=== PATIENT | male | born 1985 | race Caucasian/White ===

== ENCOUNTER 2021-12-06 11:40 | Outpatient (REF) | payer OTHER, SELFPAY ==
[2021-12-06 12:25] LABS: MANUAL DIFF FLAG NO
[2021-12-06 12:31] LABS: Basophils Absolute Auto 0.1 X10*3/uL (0.0-0.2); Basophils Percent Auto 0.7 % (0-2); Eosinophils Absolute Auto 0.3 X10*3/uL (0.0-0.4); Eosinophils Percent Auto 1.9 % (0-4); Hematocrit 33.9 % (42.0-52.0); Hemoglobin 11.5 g/dl (14.0-18.0); Imm Gran Abs Auto 0.09 X10*3/uL (0.00-0.03); Imm Gran Pct Auto 0.7 % (0.0-0.4); Lymphocytes Absolute Auto 1.5 X10*3/uL (1.2-4.9); Lymphocytes Percent Auto 11.9 % (20-40); Mean Corpuscular HGB Conc 33.9 g/dl (31.0-36.0); Mean Corpuscular Hemoglobin 35.7 pg (27.0-33.0); Mean Corpuscular Volume 105.3 fL (80.0-98.0); Mean Platelet Volume 8.5 fL (9.4-12.4); Monocytes Absolute Auto 1.4 X10*3/uL (0.1-1.2); Monocytes Percent Auto 10.8 % (2-11); Neutrophils Absolute Auto 9.6 x10*3/uL (2.0-8.3); Platelet Count 194 X10*3/uL (160-400); Red Blood Count 3.22 X10*6/uL (4.60-5.80); Red Cell Distribution Width 13.3 % (11.0-16.0); White Blood Count 12.9 X10*3/uL (4.8-10.8)
[2021-12-06 13:20] LABS: Alanine Aminotransferase 51 U/L (0-40); Albumin Level 2.7 g/dL (3.5-5.0); Alkaline Phosphatase 138 U/L (39-117); Anion Gap 10 (12-20); Aspartate Amino Transferase 90 U/L (5-37); Blood Urea Nitrogen 7 mg/dL (9-16); Calcium 8.8 mg/dL (8.4-10.2); Carbon Dioxide 28 mmol/L (22-29); Chloride 96 mmol/L (96-108); Estimated Glomerular Filt Rate > 60; Glucose Random 79 mg/dL (60-115); Potassium 4.1 mmol/L (3.3-5.1); Sodium 130 mmol/L (135-145)
== END 2021-12-06 11:41 | disposition home or self-care (01) ==
LOC: HO.10HDL 11:40
PROVIDERS: Visit Provider Internal Medicine
DX: E87.1 Hypo-osmolality and hyponatremia (principal); K70.10 Alcoholic hepatitis without ascites
CPT/HCPCS: 36415; 80053; 85025

== ENCOUNTER 2022-11-15 09:26 | Outpatient (REF) | payer OTHER, SELFPAY ==
[2022-11-15 10:50] LABS: MANUAL DIFF FLAG NO
[2022-11-15 10:58] LABS: Basophils Absolute Auto 0.1 X10*3/uL (0.0-0.2); Basophils Percent Auto 0.7 % (0-2); Eosinophils Absolute Auto 0.2 X10*3/uL (0.0-0.4); Eosinophils Percent Auto 2.2 % (0-4); Hematocrit 36.5 % (42.0-52.0); Hemoglobin 12.6 g/dl (14.0-18.0); Imm Gran Abs Auto 0.03 X10*3/uL (0.00-0.03); Imm Gran Pct Auto 0.4 % (0.0-0.4); Lymphocytes Absolute Auto 1.5 X10*3/uL (1.2-4.9); Lymphocytes Percent Auto 21.7 % (20-40); Mean Corpuscular HGB Conc 34.5 g/dl (31.0-36.0); Mean Corpuscular Hemoglobin 34.5 pg (27.0-33.0); Mean Platelet Volume 9.3 fL (9.4-12.4); Monocytes Absolute Auto 0.9 X10*3/uL (0.1-1.2); Monocytes Percent Auto 12.9 % (2-11); Neutrophils Absolute Auto 4.3 x10*3/uL (2.0-8.3); Neutrophils Percent Auto 62.1 % (45-73); Platelet Count 124 X10*3/uL (160-400); Red Blood Count 3.65 X10*6/uL (4.60-5.80); Red Cell Distribution Width 14.6 % (11.0-16.0)
[2022-11-15 11:07] LABS: INTERNATIONAL NORM RATIO 1.3 (0.9-1.1); Prothrombin Time 14.7 SEC (10.0-13.1)
[2022-11-15 11:41] LABS: Alanine Aminotransferase 54 U/L (0-40); Albumin Level 3.6 g/dL (3.5-5.0); Alkaline Phosphatase 138 U/L (39-117); Anion Gap 11 (12-20); Aspartate Amino Transferase 73 U/L (5-37); Bilirubin Total 3.7 mg/dL (0.0-1.0); Blood Urea Nitrogen 14 mg/dL (9-16); C Reactive Protein 0.55 mg/dL (< or = 0.50); Calcium 8.9 mg/dL (8.4-10.2); Carbon Dioxide 27 mmol/L (22-29); Chloride 100 mmol/L (96-108); Estimated Glomerular Filt Rate > 60; Glucose Random 78 mg/dL (60-115); Iron 147 mcg/dL (45-160); Percent Iron Saturation 53 % (15-50); Potassium 4.1 mmol/L (3.3-5.1); Sodium 134 mmol/L (135-145); Total Iron Binding Capacity 279 mcg/dL (228-428); Total Protein 6.8 g/dL (6.5-8.0); Unsaturated Iron Binding 132 ug/dL
[2022-11-15 12:05] LABS: Free T4 (Free Thyroxine) 0.97 ng/dL (0.71-1.85); Thyroid Stimulating Hormone 1.43 uIU/mL (0.32-4.0)
== END 2022-11-15 09:27 | disposition home or self-care (01) ==
LOC: HO.10HDL 09:26
PROVIDERS: Visit Provider Internal Medicine
DX: K74.60 Unspecified cirrhosis of liver (principal); E03.9 Hypothyroidism, unspecified; K21.9 Gastro-esophageal reflux disease without esophagitis; E55.9 Vitamin D deficiency, unspecified
CPT/HCPCS: 36415; 80053; 82306; 83540; 84439; 84443; 85025; 85610; 86140

== ENCOUNTER 2023-02-17 13:20 | Outpatient (REF) | payer OTHER, SELFPAY ==
[2023-02-17 13:43] LABS: MANUAL DIFF FLAG NO
[2023-02-17 14:05] LABS: Basophils Percent Auto 0.6 % (0-2); Eosinophils Absolute Auto 0.1 X10*3/uL (0.0-0.4); Eosinophils Percent Auto 1.8 % (0-4); Hematocrit 36.1 % (42.0-52.0); Hemoglobin 12.1 g/dl (14.0-18.0); Imm Gran Abs Auto 0.02 X10*3/uL (0.00-0.03); Imm Gran Pct Auto 0.3 % (0.0-0.4); Lymphocytes Absolute Auto 1.6 X10*3/uL (1.2-4.9); Lymphocytes Percent Auto 24.3 % (20-40); Mean Corpuscular HGB Conc 33.5 g/dl (31.0-36.0); Mean Corpuscular Hemoglobin 33.1 pg (27.0-33.0); Mean Corpuscular Volume 98.6 fL (80.0-98.0); Mean Platelet Volume 8.8 fL (9.4-12.4); Monocytes Absolute Auto 0.8 X10*3/uL (0.1-1.2); Monocytes Percent Auto 12.3 % (2-11); Neutrophils Absolute Auto 4.1 x10*3/uL (2.0-8.3); Neutrophils Percent Auto 60.7 % (45-73); Platelet Count 107 X10*3/uL (160-400); Red Blood Count 3.66 X10*6/uL (4.60-5.80); Red Cell Distribution Width 14.9 % (11.0-16.0); White Blood Count 6.8 X10*3/uL (4.8-10.8)
[2023-02-17 15:01] LABS: Alanine Aminotransferase 45 U/L (0-40); Albumin Level 3.3 g/dL (3.5-5.0); Alkaline Phosphatase 170 U/L (39-117); Anion Gap 12 (12-20); Aspartate Amino Transferase 66 U/L (5-37); Bilirubin Total 2.9 mg/dL (0.0-1.0); Blood Urea Nitrogen 8 mg/dL (9-16); Carbon Dioxide 25 mmol/L (22-29); Chloride 105 mmol/L (96-108); Estimated Glomerular Filt Rate > 60; Glucose Random 57 mg/dL (60-115); Potassium 3.9 mmol/L (3.3-5.1); Sodium 138 mmol/L (135-145); Total Protein 6.3 g/dL (6.5-8.0)
[2023-02-17 15:02] LABS: Thyroid Stimulating Hormone 1.04 uIU/mL (0.32-4.0)
== END 2023-02-17 13:21 | disposition home or self-care (01) ==
LOC: HO.LAB 13:20
PROVIDERS: PCP Internal Medicine; Visit Provider Internal Medicine
DX: D64.9 Anemia, unspecified (principal); R79.89 Other specified abnormal findings of blood chemistry; R94.6 Abnormal results of thyroid function studies
CPT/HCPCS: 36415; 80053; 84443; 85025

== ENCOUNTER 2023-12-18 10:59 | Outpatient (REF) | payer OTHER, SELFPAY ==
[2023-12-18 13:16] LABS: MANUAL DIFF FLAG NO
[2023-12-18 13:21] LABS: Basophils Percent Auto 0.7 % (0-2); Eosinophils Absolute Auto 0.1 X10*3/uL (0.0-0.4); Eosinophils Percent Auto 2.2 % (0-4); Hematocrit 40.6 % (42.0-52.0); Hemoglobin 14.5 g/dl (14.0-18.0); Imm Gran Abs Auto 0.01 X10*3/uL (0.00-0.03); Imm Gran Pct Auto 0.2 % (0.0-0.4); Lymphocytes Absolute Auto 1.8 X10*3/uL (1.2-4.9); Lymphocytes Percent Auto 30.7 % (20-40); Mean Corpuscular HGB Conc 35.7 g/dl (31.0-36.0); Mean Corpuscular Hemoglobin 32.7 pg (27.0-33.0); Mean Corpuscular Volume 91.4 fL (80.0-98.0); Mean Platelet Volume 9.7 fL (9.4-12.4); Monocytes Absolute Auto 0.7 X10*3/uL (0.1-1.2); Neutrophils Absolute Auto 3.3 x10*3/uL (2.0-8.3); Neutrophils Percent Auto 55.2 % (45-73); Platelet Count 116 X10*3/uL (160-400); Red Blood Count 4.44 X10*6/uL (4.60-5.80); Red Cell Distribution Width 15.2 % (11.0-16.0); White Blood Count 5.9 X10*3/uL (4.8-10.8)
[2023-12-18 13:33] LABS: Alanine Aminotransferase 33 U/L (0-40); Albumin Level 3.7 g/dL (3.5-5.0); Alkaline Phosphatase 137 U/L (39-117); Anion Gap 8 (12-20); Aspartate Amino Transferase 50 U/L (5-37); Bilirubin Total 1.9 mg/dL (0.0-1.0); Blood Urea Nitrogen 6 mg/dL (9-16); Calcium 9.1 mg/dL (8.4-10.2); Carbon Dioxide 29 mmol/L (22-29); Chloride 106 mmol/L (96-108); Estimated Glomerular Filt Rate > 60; Glucose Random 63 mg/dL (60-115); Potassium 3.9 mmol/L (3.3-5.1); Sodium 139 mmol/L (135-145); Total Protein 7.1 g/dL (6.5-8.0)
== END 2023-12-18 11:00 | disposition home or self-care (01) ==
LOC: HO.10HDL 10:59
PROVIDERS: Visit Provider Internal Medicine
DX: Z01.812 Encounter for preprocedural laboratory examination (principal)
CPT/HCPCS: 36415; 80053; 85025

== ENCOUNTER 2024-03-21 10:38 | Outpatient (REF) | payer OTHER, SELFPAY ==
[2024-03-21 10:49] LABS: MANUAL DIFF FLAG NO
[2024-03-21 11:47] LABS: Basophils Absolute Auto 0.1 X10*3/uL (0.0-0.2); Basophils Percent Auto 0.9 % (0-2); Eosinophils Absolute Auto 0.1 X10*3/uL (0.0-0.4); Eosinophils Percent Auto 1.9 % (0-4); Hematocrit 41.4 % (42.0-52.0); Hemoglobin 14.7 g/dl (14.0-18.0); Imm Gran Abs Auto 0.01 X10*3/uL (0.00-0.03); Imm Gran Pct Auto 0.2 % (0.0-0.4); Lymphocytes Absolute Auto 1.4 X10*3/uL (1.2-4.9); Lymphocytes Percent Auto 25.3 % (20-40); Mean Corpuscular HGB Conc 35.5 g/dl (31.0-36.0); Mean Corpuscular Hemoglobin 32.7 pg (27.0-33.0); Mean Platelet Volume 9.3 fL (9.4-12.4); Monocytes Absolute Auto 0.6 X10*3/uL (0.1-1.2); Monocytes Percent Auto 9.6 % (2-11); Neutrophils Absolute Auto 3.5 x10*3/uL (2.0-8.3); Neutrophils Percent Auto 62.1 % (45-73); Platelet Count 123 X10*3/uL (160-400); Red Cell Distribution Width 15.3 % (11.0-16.0); White Blood Count 5.7 X10*3/uL (4.8-10.8)
[2024-03-21 12:25] LABS: Alanine Aminotransferase 39 U/L (0-40); Alkaline Phosphatase 118 U/L (39-117); Anion Gap 12 (12-20); Aspartate Amino Transferase 47 U/L (5-37); Blood Urea Nitrogen 8 mg/dL (9-16); Calcium 9.2 mg/dL (8.4-10.2); Carbon Dioxide 24 mmol/L (22-29); Chloride 105 mmol/L (96-108); Estimated Glomerular Filt Rate > 60; Glucose Random 78 mg/dL (60-115); Potassium 3.7 mmol/L (3.3-5.1); Sodium 137 mmol/L (135-145); Total Protein 7.1 g/dL (6.5-8.0)
[2024-03-21 12:42] LABS: Free T4 (Free Thyroxine) 1.03 ng/dL (0.71-1.85)
== END 2024-03-21 10:39 | disposition home or self-care (01) ==
LOC: HO.LAB 10:38
PROVIDERS: PCP Internal Medicine; Visit Provider Internal Medicine
DX: D64.9 Anemia, unspecified (principal); R94.6 Abnormal results of thyroid function studies
CPT/HCPCS: 36415; 80053; 84439; 84443; 85025

== ENCOUNTER 2024-05-15 14:53 | Outpatient (REF) | payer OTHER, SELFPAY ==
[2024-05-15 15:09] LABS: MANUAL DIFF FLAG NO
[2024-05-15 15:23] LABS: Imm Gran Abs Auto 0.01 X10*3/uL (0.00-0.03); Imm Gran Pct Auto 0.2 % (0.0-0.4); PLT CLUMP 1; Red Cell Distribution Width 15.5 % (11.0-16.0); SCAN SMEAR FLAG 1
[2024-05-15 15:25] LABS: Basophils Percent Auto 0.2 % (0-2); Eosinophils Absolute Auto 0.1 X10*3/uL (0.0-0.4); Hematocrit 41.9 % (42.0-52.0); Hemoglobin 14.9 g/dl (14.0-18.0); Lymphocytes Absolute Auto 1.6 X10*3/uL (1.2-4.9); Lymphocytes Percent Auto 31.5 % (20-40); Mean Corpuscular HGB Conc 35.6 g/dl (31.0-36.0); Mean Corpuscular Volume 92.9 fL (80.0-98.0); Mean Platelet Volume 9.8 fL (9.4-12.4); Monocytes Absolute Auto 0.4 X10*3/uL (0.1-1.2); Monocytes Percent Auto 8.7 % (2-11); Neutrophils Absolute Auto 2.8 x10*3/uL (2.0-8.3); Neutrophils Percent Auto 57.4 % (45-73); Red Blood Count 4.51 X10*6/uL (4.60-5.80)
[2024-05-15 15:28] LABS: INTERNATIONAL NORM RATIO 1.1 (0.9-1.1); Prothrombin Time 13.8 SEC (11.1-13.3)
[2024-05-15 15:31] LABS: Partial Thromboplastin Time 41.7 SEC (26.0-36.8)
[2024-05-15 15:32] LABS: Platelet Count 91 X10*3/uL (160-400)
[2024-05-15 15:45] LABS: Alanine Aminotransferase 56 U/L (0-40); Alkaline Phosphatase 123 U/L (39-117); Anion Gap 11 (12-20); Aspartate Amino Transferase 63 U/L (5-37); Bilirubin Total 2.3 mg/dL (0.0-1.0); Blood Urea Nitrogen 8 mg/dL (9-16); Calcium 9.6 mg/dL (8.4-10.2); Carbon Dioxide 28 mmol/L (22-29); Chloride 106 mmol/L (96-108); Estimated Glomerular Filt Rate > 60; Glucose Random 75 mg/dL (60-115); Potassium 3.9 mmol/L (3.3-5.1); Sodium 141 mmol/L (135-145); Total Protein 7.3 g/dL (6.5-8.0)
== END 2024-05-15 14:54 | disposition home or self-care (01) ==
LOC: HO.LAB 14:53
PROVIDERS: PCP Internal Medicine; Visit Provider Internal Medicine
DX: Z01.818 Encounter for other preprocedural examination (principal); R79.89 Other specified abnormal findings of blood chemistry
CPT/HCPCS: 36415; 80053; 85025; 85610; 85730

== ENCOUNTER 2024-07-30 10:24 | Outpatient (AMB) | payer OTHER, SELFPAY ==
--- NOTE | 2024-07-30 10:27 | MHC.OFFVIS ---
Vital Signs 07/30/24 10:37 Height 5 ft 11 in Weight 172 lb BMI 24.0 BP 138/73 Blood Pressure Location Rt brachial Position Sitting Pulse 74 Intake Visit Reasons: umbilical hernia Intake Note: Patient referred by pcp Dr. Baxter for umbilical hernia. Present for yrs. Noticed after liver failure 3yrs ago. Patient c/o: pain above umbilicus after coughing, bending. 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 It is increasing in size, becoming more symptomatic. He would Like to have repaired. He is otherwise tolerating a diet. He is having regular bowel habits. 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 Chart was reviewed and patient evaluated. 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 He has been sober for 3+ years. He is being followed by gastroenterology in [place], [place]. ([facility] ,Dr. Mcduffie) He states that he has had other surgical procedures with the last several months including colonoscopy with polypectomy, and he is scheduled for a dental procedure as well. [facility] Medical History (Updated 07/30/24 @ 10:35 by RADHA Longo) Vocal cord polyp Liver cirrhosis Surgical History (Updated 07/30/24 @ 10:44 by Daniel Mccracken MD) History of ankle surgery Social History (Updated 07/30/24 @ 10:35 by RADHA Longo) Alcohol intake: former Patient Tobacco Use Status: Former Tobacco user Physical Exam Vital Signs: Last Vital Signs Pulse 74 07/30/24 10:37 BP 138/73 07/30/24 10:37 BMI result Body Mass Index 24.0 Const Other: Thin male in no acute distress. Dreadlocks hair Chest Other: Chest breath sounds bilaterally, HS 1 in 2 GI Other: Patient was examined both supine and standing with Valsalva. Bilateral groin exam negative. Abdomen is scaphoid, soft, benign. No umbilical hernia demonstrated. Patient has a supraumbilical reducible ventral hernia measuring approximately 3 cm in size. Patient has some overlying skin varicosities. Assessment & Plan Assessment & Plan (1) Ventral hernia: Code(s): K43.9 - Ventral hernia without obstruction or gangrene Category: Surgical Plan Risks, benefits, and alternatives of open supraumbilical ventral hernia repair with mesh were reviewed with the patient and included but not limited to bleeding, infection, recurrence, numbness, pain, scarring the patient wished to proceed. All questions answered. Arrangements were made for this. Medical clearance we will also be obtained. Patient said he is scheduled for baseline labs for an upcoming dental procedure and we will obtain those as well. Coding Level of Care Code New Pt Level 5 (48856) Diagnoses Ventral hernia K43.9
[2024-07-30 10:37] VITALS: BP 138/73; PULSE 74; BMI 24.0
== END 2024-07-30 10:39 | disposition home or self-care (01) ==
PROVIDERS: PCP Internal Medicine; Visit Provider Surgery
DX: K43.9 Ventral hernia without obstruction or gangrene (principal)
CPT/HCPCS: 99204

== ENCOUNTER → 2024-07-30 10:24 | Outpatient (BNVA) | payer OTHER, SELFPAY | PROVIDERS: PCP Internal Medicine; Visit Provider Surgery | DX: K43.9 Ventral hernia without obstruction or gangrene (principal) | CPT/HCPCS: 99202 ==

== ENCOUNTER 2025-01-08 14:59 | Outpatient (AMB) | payer OTHER, SELFPAY ==
[2025-01-08 15:11] VITALS: BP 122/80; PULSE 65; TEMP 36.6; O2SAT 98; BMI 25.5
--- NOTE | 2025-01-08 15:11 | A.OFFPC_ITS ---
Vital Signs 01/08/25 15:11 Height 5 ft 11 in Weight 183 lb BMI 25.5 BP 122/80 Blood Pressure Location Lt brachial Position Sitting Pulse 65 Pulse Source Pulse Oximeter Temp 97.9 F Temp Source Axillary Pulse Oximetry (%) 98 Oxygen Delivery Method Room Air Intake Visit Reasons: Routine Manager Scientific Required: No Accompanied by: Self / Same As Patient Allergies No Known Allergies Allergy (Verified 01/08/25 15:12) Tobacco use date assessed: 01/08/25 Dental Screening Dental Screen Date: 01/08/25 Did you have a dental visit in the last 12 months?: Yes Did you have a dental problem in the last 6 months where you did not have access to dental care?: No [facility] Medical History (Updated 01/08/25 @ 15:53 by Joseph Beckett MD) Vocal cord polyp Liver cirrhosis Surgical History History of ankle surgery Family History Mother Cancer Father No problems noted. Social History Housing: House Alcohol intake: former Patient Tobacco Use Status: Current everyday Tobacco user e-Cigarette/Vaping Use: Currently Using service: No Current occupational status: unemployed Cognitive needs: No Hearing needs: No Vision needs: Yes (rx glasses) Questionnaire PHQ-9 Over the last 2 weeks, how often have you been bothered by any of the following problems? 1. Little interest or pleasure in doing things: not at all 2. Feeling down, depressed, or hopeless: not at all 3. Trouble falling or staying asleep, or sleeping too much: not at all 4. Feeling tired or having little energy: not at all 5. Poor appetite or overeating: not at all 6. Feeling bad about yourself - or that you are a failure or have let yourself or your family down: not at all 7. Trouble concentrating on things, such as reading the newspaper or watching television: not at all 8. Moving or speaking so slowly that other people could have noticed. Or the opposite - being so fidgety or restless that you have been moving around a lot more than usual: not at all 9. Thoughts that you would be better off or of hurting yourself in some way: not at all Total score: 0 Depression Screening Interpretation: Negative Depression Screening Done: Yes Source: Developed by Drs. Brad Gomez, Brenda Stephenson, Toribio Archuleta and colleagues, with an educational betzaida from [employer]. Thrive Questionnaire Date Thrive assessed: 01/08/25 I am a: Patient Within the past 12 months, did the food you bought not last and you didn't have the money to get more?: Never true Within the past 12 months, did you worry whether your food would run out before you got money to buy more?: Never true Do you have trouble paying for medicines?: No Do you have trouble getting transportation to medical appointments?: No Do you have trouble paying your heating and electricity bill?: No Do you have trouble taking care of your child, family member or friend?: No Do you have trouble with day-to-day activities such as bathing, preparing meals, shopping, managing finances, etc.?: No Are you currently unemployed and looking for a job?: No Are you interested in more education?: No Currently or been in a relationship where the following occur: No concerns reported THRIVE Score: 0 AUDIT C Alcohol Use Questionnaire (AUDIT-C) 1. How often do you have a drink containing alcohol?: Never 2. How many drinks containing alcohol do you have on a typical day when you are drinking?: 1 or 2 Total Score: 0 FREEDOM-7 AMB Questionnaire FREEDOM-7 Date FREEDOM - 7 assessed: 01/08/25 Feeling nervous, anxious, or on edge: 0 = Not at all Not being able to stop or control worryin = Not at all Worrying too much about different things: 0 = Not at all Trouble relaxin = Not at all Becoming easily annoyed or irritable: 0 = Not at all Feeling afraid as if something awful might happen: 0 = Not at all Source: Developed by Drs. Brad Gomez, Brenda Stephenson, Toribio Archuleta and colleagues, with an educational betzaida from [employer]. Physical exam (Primary Care) Tobacco/Smoking Status: Tobacco use Status Tobacco use date assessed 01/08/25 01/08/25 15:13 Patient Tobacco Use Status Former Tobacco user 01/08/25 15:13 e-Cigarette/Vaping Use Never Used 01/08/25 15:13 PHQ-9: PHQ-9 Score PHQ-9: Total score 0 01/08/25 15:13 Depression Screening Interpretation: Negative Thrive Assessment: Date of Thrive Assessment Date Thrive assessed 01/08/25 01/08/25 15:13 Currently or been in a relationship where the following occur: No concerns reported Coding Level of Care Code New Pt Level 4 (86788) Complex EM visit Add On G2211 Diagnoses Ventral hernia K43.9 Liver cirrhosis K74.60 Assessment & Plan Assessment & Plan (1) Ventral hernia: Code(s): K43.9 - Ventral hernia without obstruction or gangrene Category: Surgical Plan: Surgical appt requested. (2) Liver cirrhosis: Code(s): K74.60 - Unspecified cirrhosis of liver Category: Medical Plan: Condition is stable. BW has been ordered Plan History of Present Illness The patient is a 39-year-old male presenting with a request for referral for hernia surgery. 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 The hernia is located in the abdominal area, noted to be right above by the patient. These restrictions have kept him from working since the onset of complications from his liver disease, which was first symptomatic in October 2020. The patient's liver disease, cirrhosis, was initially presented with jaundice and bloating and is suspected to be alcohol-related, though not confirmed. The patient had been evaluated for a liver transplant but currently no longer requires one and is not on the liver transplant list. His proactive management includes preparations to ensure rapid re-listing if needed. He recently underwe nt oral surgery to address severe dental issues. Social History - Employment: Formerly employed as a chef kitchen manager; unable to work due to physical limitations from a hernia. - Substance Use: Smokes two to three cigarettes per day, uses marijuana, no alcohol consumption currently. - Mental Health: Actively engaged in therapy. - Interests: Political discussions and self-care. Review of Systems - Gastrointestinal System: Reports presence of an abdominal hernia. - Psychosocial: Denies current alcohol use; Reports marijuana use. - General: Reports past liver cirrhosis. Physical Exam General: Cooperative and healthy appearing Nutritional Appearance: Well nourished Orientation/consciousness: Patient oriented x3 Limitations: No limitations Head: Normal to inspection General: Appearance normal, both eyes and all related structures Neck: Normal visual inspection Chest: Normal palpation of entire chest wall Respiratory: Smokes two or three cigarettes a day ormal respiratory effort Neurology: Patient oriented x3 Abd: No organomegaly. Ventral hernia, reducible Results Plan - Refer to surgery for evaluation of hernia. - Complete blood work to assess liver function. - Monitor liver status and maintain readiness for potential liver disease management. - Schedule follow-up appointment in six months. Patient was informed and verbally consented to the use of an ambient scribe for clinic note documentation during this visit. 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 We agreed on conducting blood work to monitor his liver function, which plays a critical role in his overall health management. The patient was informed about maintaining his current lifestyle changes, particularly abstaining from alcohol to manage cirrhosis. We outlined a six- month plan to reassess his liver status and follow up appropriately. I provided a supportive environment for his questions and concerns about future health stabilization strategies and encouraged his engagement in therapy and political interests as beneficial for his mental health. Patient Instructions - Attend referral appointment for hernia surgery evaluation. - Complete all blood work as ordered. - Continue to abstain from alcohol. - See a doctor if health changes or concerns arise. - Return for follow-up appointment in six months.
== END 2025-01-08 15:55 | disposition home or self-care (01) ==
LOC: HO.HMCHD 14:59
PROVIDERS: PCP Internal Medicine; Visit Provider Internal Medicine
DX: K43.9 Ventral hernia without obstruction or gangrene (principal); K74.60 Unspecified cirrhosis of liver

== ENCOUNTER → 2025-01-08 14:59 | Outpatient (BNVA) | payer OTHER, SELFPAY | PROVIDERS: PCP Internal Medicine; Visit Provider Internal Medicine | DX: K43.9 Ventral hernia without obstruction or gangrene (principal); K74.60 Unspecified cirrhosis of liver | CPT/HCPCS: 99202 ==

== ENCOUNTER 2025-01-13 10:50 | Outpatient (REF) | payer OTHER, SELFPAY ==
[2025-01-13 11:26] LABS: Hematocrit 39.2 % (42.0-52.0); Hemoglobin 13.1 g/dl (14.0-18.0); Mean Corpuscular HGB Conc 33.4 g/dl (31.0-36.0); Mean Corpuscular Hemoglobin 29.2 pg (27.0-33.0); Mean Corpuscular Volume 87.3 fL (80.0-98.0); Mean Platelet Volume 10.1 fL (9.4-12.4); Red Blood Count 4.49 X10*6/uL (4.60-5.80); Red Cell Distribution Width 17.6 % (11.0-16.0)
[2025-01-13 11:32] LABS: Platelet Count 86 X10*3/uL (160-400)
[2025-01-13 12:13] LABS: Alanine Aminotransferase 47 U/L (0-40); Albumin Level 3.8 g/dL (3.5-5.0); Alkaline Phosphatase 111 U/L (39-117); Anion Gap 11 (12-20); Aspartate Amino Transferase 55 U/L (5-37); Bilirubin Direct 0.5 mg/dL (0.0-0.5); Bilirubin Total 1.5 mg/dL (0.0-1.0); Blood Urea Nitrogen 9 mg/dL (9-16); Calcium 8.8 mg/dL (8.4-10.2); Carbon Dioxide 26 mmol/L (22-29); Chloride 108 mmol/L (96-108); Cholesterol 159 mg/dL (<200); Estimated Glomerular Filt Rate > 60; Glucose Random 89 mg/dL (60-115); Sodium 141 mmol/L (135-145); Total Protein 6.7 g/dL (6.5-8.0); Triglycerides 72 mg/dL (<150)
[2025-01-13 12:31] LABS: Thyroid Stimulating Hormone 1.22 uIU/mL (0.32-4.0)
[2025-01-13 12:43] LABS: Appearance Urine Clear; Color Urine Dark Yellow; Glucose Urine UA Negative (Negative); Leukocyte Esterase Urine Negative (Negative); Nitrite Urine Negative (Negative); PH 7.5 (5.0-9.0); Urine Blood Negative (Negative); Urine Ketones Negative (Negative); Urine Protein Negative (Neg-Trace)
[2025-01-13 13:08] LABS: HDL Cholesterol 36 mg/dL (>40); LDL Cholesterol Calculated 109 mg/dL (<100)
== END 2025-01-13 10:51 | disposition home or self-care (01) ==
LOC: HO.LAB 10:50
PROVIDERS: PCP Internal Medicine; Visit Provider Internal Medicine
DX: K74.60 Unspecified cirrhosis of liver (principal)
CPT/HCPCS: 36415; 80048; 80061; 80076; 81003; 84443; 85027

== ENCOUNTER 2025-05-26 08:08 | Outpatient (AMB) | payer OTHER, SELFPAY ==
--- NOTE | 2025-05-26 08:14 | MHC.OFFVIS ---
Vital Signs 05/26/25 08:23 Height 5 ft 11 in Weight 198 lb BMI 27.6 BP 122/67 Blood Pressure Location Rt brachial Position Sitting Pulse 67 Intake Visit Reasons: ventral hernia Intake Note: Patient referred for evaluation and treatment of ventral hernia. Last seen by Dr. Mccracken 07-30-2024. Patient c/o: pain started on mid abdomen above umbilicus but right lower abdomen feels uncomfortable. Hx of liver failure three yrs ago. 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 He says he has noticed this reducible mass on his epigastric area for about 3 years now. 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 He wants this hernia repaired. He has a history of liver failure in 2020. He has a he was drinking heavily at that time but says he was told that there may have been other factors causing his liver failure. He says he has been sober for more than 3 years now. He denies any upper GI bleed or any signs of portal hypertension. He has bilirubin last Jan, 2025 was 1.5. He has normal AST/ALT. He admits to smoking about 2 cigarettes a day. He says he is very active feels healthy overall. [facility] Medical History (Updated 05/26/25 @ 08:49 by Hayden Avendano MD) Epigastric hernia Vocal cord polyp Liver cirrhosis Surgical History Hx of tooth extraction History of ankle surgery Family History Mother Cancer Father No problems noted. Social History Housing: House Alcohol intake: former Patient Tobacco Use Status: Current everyday Tobacco user Cigarettes Per Day: 3 e-Cigarette/Vaping Use: Currently Using service: No Current occupational status: unemployed Cognitive needs: No Hearing needs: No Vision needs: Yes (rx glasses) Review of Systems Const Denies chills and Denies fever(s) Card Denies chest pain, Denies dyspnea and Denies dyspnea on exertion Resp Denies cough, Denies dyspnea and Denies dyspnea on exertion GI Denies hematochezia and Denies change in bowel habits Denies hematuria and Denies difficulty urinating Musc Denies back pain and Denies limited range of motion Neuro Denies focal weakness and Denies convulsions Psych Denies depression and Denies mood swings Physical Exam Vital Signs: Last Vital Signs Pulse 67 05/26/25 08:23 BP 122/67 05/26/25 08:23 BMI result Body Mass Index 27.6 Const General: comfortable and no acute distress Orientation/consciousness: patient oriented x3 Neck Neck: Yes no lymphadenopathy Resp Auscultation: clear to auscultation bilaterally Cardio Rhythm: regular rhythm GI Other: Palpable epigastric hernia on Valsalva, reducible, with a fascial defect of about 2 cm Palpation (GI): Soft to palpation, nontender and no guarding Neuro General: patient oriented x3 Assessment & Plan Assessment & Plan (1) Epigastric hernia: Code(s): K43.9 - Ventral hernia without obstruction or gangrene Category: Medical Plan: He has a reducible epigastric hernia as described above. He wants to proceed with repair. I explained the technique of repair with possible mesh placement. I reviewed the risks including but not limited to bleeding, infections, injury to bowel, recurrence, postop pain, inherent risks of anesthesia as well as the benefits and alternatives. I also explained to him what to expect postoperatively. He says he understands and wants to proceed He has a history of liver failure in 2020. He says he has not had any alcohol for over 3 years. He has bilirubin is 1.5. He does not present with symptoms of portal hypertension. He is not on any transplant list. Coding Level of Care Code New Pt Level 3 (69781) Diagnoses Epigastric hernia K43.9
[2025-05-26 08:23] VITALS: BP 122/67; PULSE 67; BMI 27.6
== END 2025-05-26 08:44 | disposition home or self-care (01) ==
LOC: HO.HGS 08:09
PROVIDERS: PCP Internal Medicine; Visit Provider Surgery
DX: K43.9 Ventral hernia without obstruction or gangrene (principal)
CPT/HCPCS: 99203

== ENCOUNTER → 2025-05-26 08:08 | Outpatient (BNVA) | payer OTHER, SELFPAY | PROVIDERS: PCP Internal Medicine; Visit Provider Surgery | DX: K43.9 Ventral hernia without obstruction or gangrene (principal) | CPT/HCPCS: 99202 ==

== ENCOUNTER 2025-06-12 09:13 | Outpatient (AMB) | payer OTHER, SELFPAY ==
--- NOTE | 2025-06-12 09:37 | A.OFFPC_ITS ---
Vital Signs 06/12/25 09:39 Height 5 ft 11 in Weight 197 lb 6 oz BMI 27.5 BP 130/68 Blood Pressure Location Lt brachial Position Sitting Pulse 70 Pulse Source Pulse Oximeter Temp 96.9 F Temp Source Temporal Artery Scan Pulse Oximetry (%) 97 Oxygen Delivery Method Room Air Intake Visit Reasons: 06/30 hernia Intake Note: Patient is here for a Pre-op for Hernia scheduled with Dr Avendano ([facility] General Surgeon) on 06/30/25. Nuclear Medical Tech Required: No Major Account Representative: Not Required per policy Accompanied by: Self / Same As Patient Allergies No Known Allergies Allergy (Verified 06/12/25 09:39) Tobacco use date assessed: 06/12/25 Dental Screening Dental Screen Date: 01/08/25 [facility] Medical History (Updated 05/26/25 @ 08:49 by Hayden Avendano MD) Epigastric hernia Vocal cord polyp Liver cirrhosis Surgical History Hx of tooth extraction History of ankle surgery Family History (Updated 06/12/25 @ 09:37 by RADHA Davis) Mother Cancer Father No problems noted. Social History (Updated 06/12/25 @ 09:44 by RADHA Davis) Housing: House Alcohol intake: former Patient Tobacco Use Status: Current everyday Tobacco user Tobacco use type: Cigarette Cigarette Packs Per Day: 0.25 Cigarettes Per Day: 3 e-Cigarette/Vaping Use: Currently Using Frequency of e-Cigarette/Vaping Use: Ocassional Second Hand Smoke Exposure: Yes Substance Use Type: Marijuana Substance Use Frequency: Daily service: No Current occupational status: unemployed Cognitive needs: No Hearing needs: No Vision needs: Yes (rx glasses) Questionnaire Thrive Questionnaire Date Thrive assessed: 01/08/25 AUDIT C Alcohol Use Questionnaire (AUDIT-C) 2. How many drinks containing alcohol do you have on a typical day when you are drinking?: 1 or 2 3. How often do you have six or more drinks on one occasion?: Never Total Score: 0 FREEDOM-7 AMB Questionnaire FREEDOM-7 Date FREEDOM - 7 assessed: 01/08/25 Source: Developed by Drs. Brad Gomez, Brenda Stephenson, Torbiio Archuleta and colleagues, with an educational betzaida from [employer]. Physical exam (Primary Care) Vital Signs: Last Vital Signs Temp 96.9 F 06/12/25 09:39 Pulse 70 06/12/25 09:39 BP 130/68 06/12/25 09:39 Pulse Ox 97 06/12/25 09:39 Oxygen Delivery Method Room Air 06/12/25 09:39 BMI result Body Mass Index 27.5 Tobacco/Smoking Status: Tobacco use Status Tobacco use date assessed 06/12/25 06/12/25 09:44 Patient Tobacco Use Status Current everyday Tobacco 06/12/25 09:44 Tobacco use type Cigarette 06/12/25 09:44 e-Cigarette/Vaping Use Currently Using 06/12/25 09:44 Thrive Assessment: Date of Thrive Assessment Date Thrive assessed 01/08/25 06/12/25 09:38 Coding Level of Care Code Est Pt Level 4 (26619) Complex EM visit Add On G2211 Diagnoses Liver cirrhosis K74.60 Ventral hernia K43.9 Assessment & Plan Assessment & Plan (1) Liver cirrhosis: Code(s): K74.60 - Unspecified cirrhosis of liver Category: Medical Plan: Clinically condition appears stable. Blood work has been ordered. (2) Ventral hernia: Code(s): K43.9 - Ventral hernia without obstruction or gangrene Category: Surgical Plan: History of Present Illness - The patient is a 39-year-old male presenting with a request for preoperative clearance for hernia surgery. - He has a history of cirrhosis, diagnosed over three years ago, and has maintained sobriety since his initial hospitalization for bloating related to the condition. - He has previously undergone anesthesia for dental extraction and vocal cord polyp removal without complications. 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 Social History - Employment: Previously worked as a world renowned chef and restaurant owner, currently not working due to hernia- related discomfort. - Substance Use: History of alcohol use, sober for over three years. Review of Systems - Cardiovascular: Denies any heart issues. - Allergies: Denies any known allergies. Physical Exam General: Cooperative and healthy appearing Nutritional Appearance: Well nourished Orientation/consciousness: Patient oriented x3 Limitations: No limitations Head: Normal to inspection General: Appearance normal, both eyes and all related structures Neck: Normal visual inspection Chest: Normal palpation of entire chest wall Respiratory: Normal respiratory effort Neurology: Patient oriented x3 Results Plan - Preoperative clearance for hernia surgery involves obtaining blood work and an EKG. - The patient will visit the lab for these tests, and results will be forwarded to the surgical team. Discussion Notes I discussed with the patient the need for preoperative clearance, including blood work and an EKG, to ensure he is fit for the upcoming hernia surgery. I assured him that the results will be communicated to the surgical team, and they will contact him with further instructions. Patient Instructions - Proceed to the lab across the street for blood work and an EKG. - Await contact from the surgical team for further instructions regarding the surgery date. Orders: Orders Basic Metabolic Panel Today K74.60 - Unspecified cirrhosis of liver Complete Blood Count no Diff Today K74.60 - Unspecified cirrhosis of liver Lipid Panel Today K74.60 - Unspecified cirrhosis of liver Liver Panel Today K74.60 - Unspecified cirrhosis of liver Thyroid Stimulating Hormone Today K74.60 - Unspecified cirrhosis of liver UA and rflx microscopic Today K74.60 - Unspecified cirrhosis of liver ECG 12 lead EKG Today K43.9 - Ventral hernia without obstruction or gangrene
[2025-06-12 09:39] VITALS: BP 130/68; PULSE 70; TEMP 36.1; O2SAT 97; BMI 27.5
--- OUTSIDE RECORDS SUMMARY | 2025-06-12 10:04 | XMS_ITS | Encounter Summary ---
Author Organization [facility] Address [address] [place] [phone] Phone Care Team Providers Care Account Liaison Name Role Phone Hayden Britt MD Primary Care Provider Encounter Details Date Type Department Care Team (Latest Contact Info) Description 03/08/2022 Transcribe Orders Virtual Department [address] [place] [phone] Fabrice Mcduffie MD [address] [place] [address] [email or web address] Alcoholic cirrhosis, unspecified whether ascites present (Primary Dx) Social History Tobacco Use Types Packs/Day Years Used Date Smoking Tobacco: Every Day Cigarettes Smokeless Tobacco: Never Alcohol Use Standard Drinks/Week Comments Not Currently 0 (1 standard drink = 0.6 oz pure alcohol) quit after liver failure diagnosis and last admission Sex and Gender Information Value Date Recorded Sex Assigned at Male 11/10/2017 10:27 AM EST Legal Sex Male 9:17 PM EDT Gender Identity Male 11/10/2017 10:27 AM EST Sexual Orientation Straight 11/10/2017 10 :27 AM EST documented as of this encounter Plan of Treatment Upcoming Encounters Date Type Department Care Team (Late st Contact Info) Description 06/25/2025 8:15 AM EDT Appointment [facility] [address] [place] [address] Fabrice Mcduffie MD [address] [place] [phone] [email or web address] documented as of this encounter Results * US ABDOMEN LIMITED RIGHT UPPER QUADRANT (03/11/2022 8:56 AM EDT) Anatomical Region Laterality Modality Abdomen Ultrasound 03/11/2022 9:07 AM EDT Impressions 03/11/2022 9:15 AM EDT 1.Findings suggestive of cirrhosis, including recanalized umbilical vein. 2.Gallbladder sludge and/or granular stones without evidence of acute cholecystitis. Narrative 03/11/2022 9:15 AM EDT US ABDOMEN LIMITED RIGHT UPPER QUADRANT TECHNIQUE: US Abdominal limited right upper quadrant. COMPARISON: CT dated 10/12/2021 FINDINGS: Liver: Echogenic and coarsened echotexture and mildly nodular contour, consistent with cirrhosis. No focal lesions. Main Portal Vein: Patent. There appears to be a recanalized umbilical vein. Gallbladder: There is a small amount of layering sludge and/or granular stones. No significant gallbladder wall thickening or pericholecystic fluid Sonographic Herman's sign: negative. Biliary: Normal. No intrahepatic or extrahepatic biliary ductal dilatation. The common bile duct measures 5 mm. No hydronephrosis in the right kidney Procedure Note Loli Banks MD - 03/11/2022 US ABDOMEN LIMITED RIGHT UPPER QUADRANT TECHNIQUE: US Abdominal limited right upper quadrant. COMPARISON: CT dated 10/12/2021 FINDINGS: Liver: Echogenic and coarsened echotexture and mildly nodular contour,consistent with cirrhosis. No focal lesions. Main Portal Vein: Patent. There appears to be a recanalized umbilicalvein. Gallbladder: There is a small amount of layering sludge and/or granularstones. No significant gallbladder wall thickening or pericholecysticfluid Sonographic Herman's sign: negative. Biliary: Normal. No intrahepatic or extrahepatic biliary ductaldilatation. The common bile duct measures 5 mm. No hydronephrosis in the right kidney IMPRESSION: 1.Findings suggestive of cirrhosis, including recanalized umbilicalvein. 2.Gallbladder sludge and/or granular stones without evidence of acutecholecystitis. Fabrice Mcduffie MD IMG US ABDOMEN Final Resu lt documented in this encounter Visit Diagnoses Diagnosis Alcoholic cirrhosis, unspecified whether ascites present- Primary Alcoholic cirrhosis, unspecified whether ascites present documented in this encounter Care Teams Account Liaison Relationship Specialty Start Date End Date Hayden Britt MD [address] [place] [address] [place] [address] PCP - General Internal Medicine 11/04/21 documented as of this encounter Additional Source Comments The information contained in this document represents components of the legal health record. It is not the complete legal health record.[facility]
--- OUTSIDE RECORDS SUMMARY | 2025-06-12 10:04 | XMS_ITS | Encounter Summary ---
Author Organization [facility] Address [address] [place] [phone] Phone Care Team Providers Care Laborer Vineyard Name Role Phone Hayden Britt MD Primary Care Provider Encounter Details Date Type Department Care Team (Late st Contact Info) Description 03/15/2023 Ancillary Orders Virtual Department [address] [place] [address] Brenda Aguiar NP [address] [place] [address] Alcoholic cirrhosis of liver without ascites Social History Tobacco Use Types Packs/Day Years Used Date Smoking Tobacco: Every Day Cigarettes 0.3 20 Smokeless Tobacco: Never Alcohol Use Standard Drinks/Week Comments Not Currently 0 (1 standard drink = 0.6 oz pure alcohol) quit after liver failure diagnosis last etoh 10/12/21. Prior would drink 10-15 liquor drinks daily Education Answer Date Recorded Are you interested in more education? Not on denzel e 01/06/2023 Are you concerned about learning? Not on file 01/06/2023 No 01/06/2023 No 01/06/2023 Digital Access Answer Date Recorded No 02/04/2023 No 02/04/2023 Reliable internet access at home? Not on file 02/04/2023 Device with a working camera? Not on file Sex and Gender Information Value Date Recorded Sex Assigned at Male 11/10/2017 10:27 AM EST Legal Sex Male 9:17 PM EDT Gender Identity Male 11/10/2017 10:27 AM EST Sexual Orientation Straight 11/10/2017 10 :27 AM EST documented as of this encounter Plan of Treatment Upcoming Encounters Date Type Department Care Team (Late st Contact Info) Description 06/25/2025 8:15 AM EDT Appointment [facility], Ultrasound - [facility] [address] [place] [address] Fabrice Mcduffie MD 10 [facility] 2 [place] [address] [email or web address] documented as of this encounter Results * US ABDOMEN LIMITED RIGHT UPPER QUADRANT (03/15/2023 8:59 AM EDT) Anatomical Region Laterality Modality Abdomen Ultrasound 03/15/2023 4:24 PM EDT Impressions 03/16/2023 5:22 AM EDT Cirrhotic liver. No suspicious focal hepatic lesion. Cholelithiasis without evidence of acute cholecystitis or bile duct dilation. Narrative 03/16/2023 5:22 AM EDT US ABDOMEN LIMITED RIGHT UPPER QUADRANT TECHNIQUE: US Abdominal limited right upper quadrant. COMPARISON: MRI ABDOMEN WITH AND WITHOUT CONTRAST FINDINGS: Liver: Cirrhotic morphology/echotexture. Relative focal hypoechogenicity adjacent to the gallbladder measured by calipers on still images, corresponding to an area of focal fatty sparing seen on recent prior MRI. No new/suspicious focal lesion. Main Portal Vein: Patent with normal direction of flow. Gallbladder: Shadowing luminal gallstones/sludge. No abnormal gallbladder wall thickening. Herman's Sign: Negative. Biliary: No intrahepatic or extrahepatic biliary ductal dilatation. The common bile duct measures 4 mm. Procedure Note Jose Schroeder MD - 03/16/2023 US ABDOMEN LIMITED RIGHT UPPER QUADRANT TECHNIQUE: US Abdominal limited right upper quadrant. COMPARISON: MRI ABDOMEN WITH AND WITHOUT CONTRAST FINDINGS: Liver: Cirrhotic morphology/echotexture. Relative focal hypoechogenicityadjacent to the gallbladder measured by calipers on still images,corresponding to an area of focal fatty sparing seen on recent prior MRI.No new/suspicious focal lesion. Main Portal Vein: Patent with normal direction of flow. Gallbladder: Shadowing luminal gallstones/sludge. No abnormal gallbladderwall thickening. Herman's Sign: Negative. Biliary: No intrahepatic or extrahepatic biliary ductal dilatation. The common bile duct measures 4 mm. IMPRESSION: Cirrhotic liver. No suspicious focal hepatic lesion. Cholelithiasis without evidence of acute cholecystitis or bile ductdilation. us Brenda Aguiar CH[facility] C[facility] ASSISTANT DIRECTOR IMG US ABDOMEN Final Res ult documented in this encounter Visit Diagnoses Diagnosis Alcoholic cirrhosis of liver without ascites Alcoholic cirrhosis of liver without ascites documented in this encounter Care Teams Laborer Vineyard Relationship Specialty Start Date End Date Hayden Britt MD [address] [place] [address] [place] [address] PCP - General Internal Medicine 11/04/21 documented as of this encounter Additional Source Comments The information contained in this document represents components of the legal health record. It is not the complete legal health record.[facility]
--- OUTSIDE RECORDS SUMMARY | 2025-06-12 10:04 | XMS_ITS | Encounter Summary ---
Author Organization [facility] Address [address] [place] [phone] Phone Care Team Providers Care Early Childhood Associate Name Role Phone Hayden Britt MD Primary Care Provider Reason for Referral * MRI/CAT Scan - Closed Specialty Diagnoses / Procedures Referred By Contac t Referred To Contact Radiology Diagnoses Hepatic cirrhosis, unspecified hepatic cirrhosis type, unspecified whether ascites present Procedures CT Abdomen/Pelvis CHG CT SCAN,ABDOMENT AND PELVIS,W CONTRAST Fabrice Mcduffie MD [address] [place] [address] Phone: tel: fax: [email or web address] Referral ID Status Reason Start Date Expiration Date Visits Re quested Visits Authorized [id number] Closed 10/29/2023 04/26/2024 1 1 Encounter Details Date Type Department Care Team (Latest Contact Info) Description 10/31/2023 Transcribe Orders Virtual Department [address] [place] [address] Fabrice Mcduffie MD [address] [address] [email or web address] Hepatic cirrhosis, unspecified hepatic cirrhosis type, unspecified whether ascites present (Primary Dx) Social [...] Info) Description 06/25/2025 8:15 AM EDT Appointment [address] [address] Fabrice Mcduffie MD [address] [place] [address] [email or web address] documented as of this encounter Results * CT ABDOMEN/PELVIS WITH CONTRAST (12/11/2023 10:10 AM EDT) Anatomical Region Laterality Modality Abdomen, Pelvis Computed Tomogra phy 12/12/2023 5:58 AM EDT Impressions 12/12/2023 7:36 AM EDT Cirrhosis with portal hypertension. No definite evidence of suspicious focal liver lesion by single phase exam (not specifically optimized for HCC detection)l. Narrative 12/12/2023 7:[address] ABDOMEN/PELVIS WITH CONTRAST Referring clinician's provided indication for this examination in Epic: Outside Radiology Order; cirrhosis TECHNIQUE: Multidetector-row CT of the abdomen and pelvis was performed after administration of intravenous contrast using tailored dose modulation techniques. Images were reconstructed in the axial, coronal, and sagittal planes. COMPARISON: MRI abdomen 11/01/2022 FINDINGS: Lower Chest: Normal. No consolidation or pleural effusions. Liver: No suspicious focal liver lesion by single phase exam. Cirrhosis. Punctate benign hepatic cysts, characterizable on prior MRI. Biliary: No biliary ductal dilatation. Cholelithiasis. Spleen: Splenomegaly measuring 13.7 cm AP. Pancreas: Normal. No masses or ductal dilatation. Adrenal Glands: Normal. No nodules. Kidneys/Ureters: No solid renal mass or hydronephrosis. Bowel: No bowel obstruction or wall thickening. Peritoneum/Retroperitoneum: Normal. No masses, pneumoperitoneum, or fluid. Lymph Nodes: Normal. No lymphadenopathy. Pelvic Organs/Bladder: Normal. No mass. Vessels: No abdominal aortic aneurysm. Recanalized umbilical vein, with extensive venous collaterals along the ventral abdominal wall. Bones/Soft Tissues: No suspicious focal osseous lesion. Procedure Note Alok Bonilla MD - 12/12/2023 CT ABDOMEN/PELVIS WITH CONTRAST Referring clinician's provided indication for this examination in Epic:Outside Radiology Order; cirrhosis TECHNIQUE: Multidetector-row CT of the abdomen and pelvis was performedafter administration of intravenous contrast using tailored dosemodulation techniques. Images were reconstructed in the axial, coronal,and sagittal planes. COMPARISON: MRI abdomen 11/01/2022 FINDINGS: Lower Chest: Normal. No consolidation or pleural effusions. Liver: No suspicious focal liver lesion by single phase exam. Cirrhosis.Punctate benign hepatic cysts, characterizable on prior MRI. Biliary: No biliary ductal dilatation. Cholelithiasis. Spleen: Splenomegaly measuring 13.7 cm AP. Pancreas: Normal. No masses or ductal dilatation. Adrenal Glands: Normal. No nodules. Kidneys/Ureters: No solid renal mass or hydronephrosis. Bowel: No bowel obstruction or wall thickening. Peritoneum/Retroperitoneum: Normal. No masses, pneumoperitoneum, orfluid. Lymph Nodes: Normal. No lymphadenopathy. Pelvic Organs/Bladder: Normal. No mass. Vessels: No abdominal aortic aneurysm. Recanalized umbilical vein, withextensive venous collaterals along the ventral abdominal wall. Bones/Soft Tissues: No suspicious focal osseous lesion. IMPRESSION: Cirrhosis with portal hypertension. No definite evidence of suspiciousfocal liver lesion by single phase exam (not specifically optimized forHCC detection)l. Fabrice Mcduffie MD IMG CT ABD/PELVIS Final Re sult documented in this encounter Visit Diagnoses Diagnosis Hepatic cirrhosis, unspecified hepatic cirrhosis type, unspecified whether ascites present- Primary Hepatic cirrhosis, unspecified hepatic cirrhosis type, unspecified whether ascites present documented in this encounter Care Teams Early Childhood Associate Relationship Specialty Start Date End Date Hayden Britt MD [address] [place] [address] [place] [address] PCP - General Internal Medicine 11/04/21 documented as of this encounter Additional Source Comments The information contained in this document represents components of the legal health record. It is not the complete legal health record.[facility]
--- OUTSIDE RECORDS SUMMARY | 2025-06-12 10:04 | XMS_ITS | Encounter Summary ---
Author Organization [facility] Address [address] [place] [phone] Phone Care Team Providers Care Account Adjuster Name Role Phone Hayden Britt MD Primary Care Provider Encounter Details Date Type Department Care Team (Late st Contact Info) Description 11/26/2021 Procedure Pass [facility] [address] [place] [address] Social History Tobacco Use Types Packs/Day Years [...] Info) Description 06/25/2025 8:15 AM EDT Appointment [facility] [address] [place] [address] Fabrice Mcduffie MD [address] [place] [phone] [email or web address] documented as of this encounter Visit Diagnoses Not on filedocumented in this encounter Additional Health Concerns Infection Onset Date Last Indicated Resolved Time MRSA Comment:Import to add expiration date of 11/27/2021 per Infection Control as part of historical infection status reconciliation 06/14/2005 06/14/2005 11/28/19 1:35 AM EDT documented as of this encounter Care Teams Account Adjuster Relationship Specialty Start Date End Date Hayden Britt MD [address] [place] [address] [place] [address] PCP - General Internal Medicine 11/04/21 documented as of this encounter Additional Source Comments The information contained in this document represents components of the legal health record. It is not the complete legal health record.[facility]
--- OUTSIDE RECORDS SUMMARY | 2025-06-12 10:04 | XMS_ITS | Encounter Summary ---
Author Organization [facility] Address [address] [place] [phone] Phone Care Team Providers Care Criminal Judge Name Role Phone Hayden Britt MD Primary Care Provider Encounter Details Date Type Department Care Team (Late st Contact Info) Description 12/02/2021 Procedure Pass [facility] [address] [place] [address] Social History Tobacco Use Types Packs/Day Years [...] Info) Description 06/25/2025 8:15 AM EDT Appointment [facility] [address] [place] [address] Fabrice Mcduffie MD [address] [place] [address] [email or web address] documented as of this encounter Visit Diagnoses Not on filedocumented in this encounter Care Teams Criminal Judge Relationship Specialty Start Date End Date Hayden Britt MD [address] [place] [address] [place] [address] PCP - General Internal Medicine 11/04/21 documented as of this encounter Additional Source Comments The information contained in this document represents components of the legal health record. It is not the complete legal health record.[facility]
--- OUTSIDE RECORDS SUMMARY | 2025-06-12 10:04 | XMS_ITS | Encounter Summary ---
Author Organization [facility] Address [address] [place] [address] Phone Care Team Providers Care Medical Records Director Name Role Phone Hayden Britt MD Primary Care Provider Encounter Details Date Type Department Care Team (Latest Contact Info) Description 11/21/2023 Transcribe Orders Virtual Department 30 [place] [address] Fabrice Mcduffie MD [address] [place] [address] [email or web address] Alcoholic cirrhosis of liver without ascites (Primary Dx) Social History Tobacco Use Types [...] Info) Description 06/25/2025 8:15 AM EDT Appointment [facility], Ultrasound - [facility] [address] [place] [address] Fabrice Mcduffie MD [address] [phone] [email or web address] documented as of this encounter Results * US ABDOMEN LIMITED RIGHT UPPER QUADRANT (12/12/2023 9:34 AM EDT) Anatomical Region Laterality Modality Abdomen Ultrasound 12/12/2023 9:53 AM EDT Impressions 12/12/2023 5:01 PM EDT Diffusely coarsened echotexture and nodular contour in keeping with history of cirrhosis. No focal hepatic lesion demonstrated sonographically Narrative 12/12/2023 5:01 PM EDT US ABDOMEN LIMITED RIGHT UPPER QUADRANT Referring clinician's provided indication for this examination in [facility]: Outside Radiology Order; cirrhosis TECHNIQUE: US Abdominal limited right upper quadrant. COMPARISON: CT abdomen pelvis 12/11/2023, sonography 03/15/2023, and MRI 11/01/2022 FINDINGS: Liver: Diffusely coarsened echotexture and nodular contour in keeping with history of cirrhosis. There is a 6 mm cyst at the right hepatic lobe corresponding to findings of prior MRI. No suspicious focal hepatic lesion demonstrated sonographically Main Portal Vein: Patent with normal direction of flow. Gallbladder: Redemonstration of cholelithiasis. No gallbladder wall thickening or pericholecystic fluid Herman's Sign: Negative. Biliary: No intrahepatic or extrahepatic biliary ductal dilatation. The common bile duct measures 2 mm. Right Kidney: No stones or hydronephrosis. Procedure Note Wanda Plunkett MD - 12/12/2023 US ABDOMEN LIMITED RIGHT UPPER QUADRANT Referring clinician's provided indication for this examination in [facility]:Outside Radiology Order; cirrhosis TECHNIQUE: US Abdominal limited right upper quadrant. COMPARISON: CT abdomen pelvis 12/11/2023, sonography 03/15/2023, and MRI11/01/2022 FINDINGS: Liver: Diffusely coarsened echotexture and nodular contour in keeping withhistory of cirrhosis. There is a 6 mm cyst at the right hepatic lobecorresponding to findings of prior MRI. No suspicious focal hepatic lesiondemonstrated sonographically Main Portal Vein: Patent with normal direction of flow. Gallbladder: Redemonstration of cholelithiasis. No gallbladder wallthickening or pericholecystic fluid Herman's Sign: Negative. Biliary: No intrahepatic or extrahepatic biliary ductal dilatation. The common bile duct measures 2 mm. Right Kidney: No stones or hydronephrosis. IMPRESSION: Diffusely coarsened echotexture and nodular contour in keeping withhistory of cirrhosis. No focal hepatic lesion demonstratedsonographically Fabrice Mcduffie MD IMG US ABDOMEN Final Resu lt documented in this encounter Visit Diagnoses Diagnosis Alcoholic cirrhosis of liver without ascites- Primary Alcoholic cirrhosis of liver without ascites documented in this encounter Care Teams Medical Records Director Relationship Specialty Start Date End Date Hayden Britt MD [address] [place] [address] [place] [address] PCP - General Internal Medicine 11/04/21 documented as of this encounter Additional Source Comments The information contained in this document represents components of the legal health record. It is not the complete legal health record.[facility]
--- OUTSIDE RECORDS SUMMARY | 2025-06-12 10:04 | XMS_ITS | Encounter Summary ---
Author Organization [facility] Address [address] [place] [phone] Phone Care Team Providers Care Event Specialist Product Demonstrator Name Role Phone Hayden Britt MD Primary Care Provider Reason for Referral * MRI/CAT Scan - Closed Specialty Diagnoses / Procedures Referred By Contac t Referred To Contact Radiology Diagnoses Liver lesion Procedures MRI Abdomen CHG MRI, ABDOMEN, COMBO Fabrice Mcduffie MD Phone: tel: fax: [email or web address] Referral ID Status Reason Start Date Expiration Date Visits Re quested Visits Authorized [id number] Closed 10/12/2022 04/10/2023 1 1 Encounter Details Date Type Department Care Team (Latest Contact Info) Description 10/12/2022 Transcribe Orders Virtual Department [address] [place] [address] Fabrice Mcduffie MD [address] [address] Liver lesion (Primary Dx) Social History Tobacco Use Types Packs/Day Years Used Date Smoking Tobacco: Every Day Cigarettes 0.3 20 Smokeless Tobacco: Never Alcohol Use Standard Drinks/Week Comments Not Currently 0 (1 standard drink = 0.6 oz pure alcohol) quit after liver failure diagnosis last etoh 10/12/21. Prior would drink 10-15 liquor drinks daily Sex and Gender Information Value Date Recorded Sex Assigned at Male 11/10/2017 10:27 AM EST Legal Sex Male 9:17 PM EDT Gender Identity Male 11/10/2017 10:27 AM EST Sexual Orientation Straight 11/10/2017 10 :27 AM EST documented as of this encounter Plan of Treatment Upcoming Encounters Date Type Department Care Team (Late st Contact Info) Description 06/25/2025 8:15 AM EDT Appointment [facility] [address] [place] [address] Fabrice Mcduffie MD [address] [place] [phone] [email or web address] documented as of this encounter Results * MRI ABDOMEN WITH AND WITHOUT CONTRAST (11/01/2022 10:10 AM EST) Anatomical Region Laterality Modality Abdomen Magnetic Resonan ce 11/01/2022 5:00 PM EST Impressions 11/02/2022 5:35 AM EST Hepatic parenchymal heterogeneity, with a mildly nodular appearance, likely related to known cirrhosis and possibly resolving inflammation related to recent alcoholic hepatitis. No suspicious focal liver lesion. Sequelae of portal hypertension, including splenomegaly and esophageal varices. 10 mm pancreatic tail lesion which demonstrates similar signal to splenic parenchyma on multiple sequences, likely a benign intrapancreatic splenule, though not definitively characterized. If definitive characterization is desired, consider sulfur colloid SPECT scintigraphy. This report has been forwarded to an automated communication system which will electronically notify appropriate providers of potentially important findings. Narrative 11/02/2022 5:35 AM EST MRI ABDOMEN WITH AND WITHOUT CONTRAST TECHNIQUE: Multiplanar MR imaging of the abdomen was performed using T1, T2, fat saturated, and diffusion weighted techniques. Dynamic multiphase imaging was also performed after administration of an intravenous gadolinium contrast agent. COMPARISON: CT abdomen/pelvis 10/12/2021. FINDINGS: Lower Chest: Normal. No consolidation or pleural effusions. Liver: Hepatic parenchymal heterogeneity, with a mildly nodular appearance, likely related to known cirrhosis and possibly resolving inflammation related to recent alcoholic hepatitis. Punctate benign cysts. No suspicious focal liver lesion. Biliary: Gallbladder is distended but thin-walled, without evidence of cholecystitis. No biliary ductal dilatation. Spleen: Mild splenomegaly (14 cm craniocaudal), similar to prior. Pancreas: 10 mm pancreatic tail lesion which demonstrates similar signal to splenic parenchyma on multiple sequences (5:24), not well assessed on prior imaging. No main pancreatic duct dilation. Adrenal Glands: Normal. No nodules. Kidneys/Ureters: Punctate benign right renal cyst. No solid masses, stones, or hydronephrosis.a Bowel: Normal. No distention or wall thickening. Peritoneum/Retroperitoneum: Normal. No masses, pneumoperitoneum, or fluid. Lymph Nodes: Normal. No lymphadenopathy. Pelvic Organs/Bladder: Normal. No mass. Vessels: Scattered upper abdominal collaterals, occluding a large recanalized umbilical vein with ventral abdominal wall subcutaneous collaterals, and esophageal varices. No abdominal aortic aneurysm. Bones/Soft Tissues: Normal. No destructive osseous lesions. Procedure Note Alok Bonilla MD - 11/02/2022 MRI ABDOMEN WITH AND WITHOUT CONTRAST TECHNIQUE: Multiplanar MR imaging of the abdomen was performed using T1,T2, fat saturated, and diffusion weighted techniques. Dynamic multiphaseimaging was also performed after administration of an intravenousgadolinium contrast agent. COMPARISON: CT abdomen/pelvis 10/12/2021. FINDINGS: Lower Chest: Normal. No consolidation or pleural effusions. Liver: Hepatic parenchymal heterogeneity, with a mildly nodularappearance, likely related to known cirrhosis and possibly resolvinginflammation related to recent alcoholic hepatitis. Punctate benign cysts.No suspicious focal liver lesion. Biliary: Gallbladder is distended but thin-walled, without evidence ofcholecystitis. No biliary ductal dilatation. Spleen: Mild splenomegaly (14 cm craniocaudal), similar to prior. Pancreas: 10 mm pancreatic tail lesion which demonstrates similar signalto splenic parenchyma on multiple sequences (5:24), not well assessed onprior imaging. No main pancreatic duct dilation. Adrenal Glands: Normal. No nodules. Kidneys/Ureters: Punctate benign right renal cyst. No solid masses,stones, or hydronephrosis.a Bowel: Normal. No distention or wall thickening. Peritoneum/Retroperitoneum: Normal. No masses, pneumoperitoneum, orfluid. Lymph Nodes: Normal. No lymphadenopathy. Pelvic Organs/Bladder: Normal. No mass. Vessels: Scattered upper abdominal collaterals, occluding a largerecanalized umbilical vein with ventral abdominal wall subcutaneouscollaterals, and esophageal varices. No abdominal aortic aneurysm. Bones/Soft Tissues: Normal. No destructive osseous lesions. IMPRESSION: Hepatic parenchymal heterogeneity, with a mildly nodular appearance,likely related to known cirrhosis and possibly resolving inflammationrelated to recent alcoholic hepatitis. No suspicious focal liver lesion. Sequelae of portal hypertension, including splenomegaly and esophagealvarices. 10 mm pancreatic tail lesion which demonstrates similar signal to splenicparenchyma on multiple sequences, likely a benign intrapancreaticsplenule, though not definitively characterized. If definitivecharacterization is desired, consider sulfur colloid SPECT scintigraphy. This report has been forwarded to an automated communication system whichwill electronically notify appropriate providers of potentially importantfindings. Fabrice Mcduffie MD IMG MR ABDOMEN Final Resu lt documented in this encounter Visit Diagnoses Diagnosis Liver lesion- Primary Other specified disorders of liver Liver lesion Other specified disorders of liver documented in this encounter Care Teams Event Specialist Product Demonstrator Relationship Specialty Start Date End Date Hayden Britt MD [address] [place] [address] [place] [address] PCP - General Internal Medicine 11/04/21 documented as of this encounter Additional Source Comments The information contained in this document represents components of the legal health record. It is not the complete legal health record.[facility]
--- OUTSIDE RECORDS SUMMARY | 2025-06-12 10:04 | XMS_ITS | Encounter Summary ---
Author Organization [facility] Address [address] [place] [address] Phone Care Team Providers Care Jewelry Sales Coordinator Name Role Phone Unknown, Unknown Primary Care Provider Indio duckworth Pcp, Unknown Primary Care Provider Hayden Chu MD Primary Care Provider Encounter Details Date Type Department Care Team (Late Contact Info) Description 10/13/2021 Procedure Pass [facility] [address] [place] [address] Social History Tobacco Use Types Packs/Day Years Used Date Smoking Tobacco: Every Day Cigarettes Smokeless Tobacco: Never Alcohol Use Standard Drinks/Week Comments Yes 0 (1 standard drink = 0.6 oz pur e alcohol) 8-15 drinks daily, whiskey Sex and Gender Information Value Date Recorded Sex Assigned at Male 11/10/2017 10:27 AM EST Legal Sex Male 9:17 PM EDT Gender Identity Male 11/10/2017 10:27 AM EST Sexual Orientation Straight 11/10/2017 10 :27 AM EST documented as of this encounter Plan of Treatment Upcoming Encounters Date Type Department Care Team (Late Contact Info) Description 06/25/2025 8:15 AM EDT Appointment [facility] [address] [place] [address] Fabrice Mcduffie MD [address] [place] [address] [email or web address] documented as of this encounter Visit Diagnoses Not on filedocumented in this encounter Additional Health Concerns Infection Onset Date Last Indicated Resolved Time MRSA Comment:Import to add expiration date of 11/27/2021 per Infection Control as part of historical infection status reconciliation 06/14/2005 06/14/2005 11/28/19 22 1:35 AM EDT documented as of this encounter Care Teams Jewelry Sales Coordinator Relationship Specialty Start Date End Date Unknown, Unknown, MD PCP - General 11/10/17 10/21/21 Pcp, Unknown PCP - General 10/22/21 11/03/21 Hayden Britt MD [address] [place] [address] [place], [place] [address] PCP - General Internal Medicine 11/04/21 documented as of this encounter Additional Source Comments The information contained in this document represents components of the legal health record. It is not the complete legal health record.[facility]
--- OUTSIDE RECORDS SUMMARY | 2025-06-12 10:04 | XMS_ITS | Encounter Summary ---
Author Organization [facility] Address [address] [place] [phone] Phone Care Team Providers Care Pupil Personnel Services Director Name Role Phone Unknown, Unknown Primary Care Provider Indio duckworth Pcp, Unknown Primary Care Provider Hayden Chu MD Primary Care Provider Encounter Details Date Type Department Care Team (Late st Contact Info) Description 10/12/2021 Procedure Pass [facility], Ct Scan - [facility] [address] [place] [address] Social History Tobacco Use Types Packs/Day Years [...] AM EST documented as of this encounter Functional Status * Calculated C-SSRS Risk Score (Lifetime/Recent) Answer Date of Assessment Author No Risk Indicated 10/12/2021 11:00 PM Abel Pike RN * [place] Suicide Severity Rating Scale (Screener/Recent Self-Report) Question Answer Date of Assessment Author 1. Wish to be (Past 1 Month) No 10/12/2021 11:00 PM Blaze Mark RN 2. Non-Specific Active Suici mercedes Thoughts (Past 1 Month) No 10/12/2021 11:00 PM Keith Mark RN 6. Suicidal Behavior (Lifetime) No 11:00 PM Abel Mark RN documented as of this encounter Plan of Treatment Upcoming Encounters Date Type Department Care Team (Late st Contact Info) Description 06/25/2025 8:15 AM EDT Appointment [facility] [address] [place] [address] Fabrice Mcduffie MD [address] [place] [phone] [email or web address] documented as of this encounter Visit Diagnoses Not on filedocumented in this encounter Additional Health Concerns Infection Onset Date Last Indicated Resolved Time MRSA Comment:Import to add expiration date of 11/27/2021 per Infection Control as part of historical infection status reconciliation 06/14/2005 06/14/2005 11/28/19 22 1:35 AM EDT documented as of this encounter Care Teams Pupil Personnel Services Director Relationship Specialty Start Date End Date Unknown, Unknown, MD PCP - General 11/10/17 10/21/21 Pcp, Unknown PCP - General 10/22/21 11/03/21 Hayden Britt MD [address] [place] [phone] PCP - General Internal Medicine 11/04/21 documented as of this encounter Additional Source Comments The information contained in this document represents components of the legal health record. It is not the complete legal health record.[facility]
--- OUTSIDE RECORDS SUMMARY | 2025-06-12 10:04 | XMS_ITS | Data Portability ---
Author Organization [place] [facility] Address [address] [place] [phone] Care Team Providers Care Casing Running Machine Tender Name Role Phone REBECA MADRIGAL Primary Care Provider [phone] Assessment Encounter Date Assessment Date Assessment LastModified by Organization Details LastModified Time 02/21/2024 02/21/2024 Overall doing well. Voice much improved following excision of the right vocal fold lesion which was benign. He is having some postnasal drip and allergy symptoms. Suggest Flonase. Avoid vocal abuse if possible. [email or web address] Not available 02/21/2024 11:58:51 Plan of Treatment Reminders Order Date Submit Date Provider Last Modified By Organization Details Last Modified Time Details Appointments None recorded. Lab None recorded. Referral None recorded. Procedures None recorded. Surgeries None recorded. Imaging None recorded. Medication Orders fluticasone propionate 50 mcg/actuati on nasal spray,suspe nsion [address] [facility] #[id number], [address] [facility], [place], [address], 11:59:09 Patient TargetsNo targets recorded. Patient InstructionsNo instructions recorded. Reason for Referral None Reported. Results Created Date Observation Date Name Description Value Unit Range Abnormal Flag Note LastModifiedBy Organization Detail LastModifiedTime 05/01/20 24 09/27/2022 imagi ng/di agnos tic resul t No observ ation record ed. [email or web address] Not Available 02:45:25 05/01/20 24 11/01/2022 imagi ng/di agnos tic resul t No observ ation record ed. [email or web address] Not Available 02:45:34 05/01/20 24 01/09/2024 imagi ng/di agnos tic resul t No observ ation record ed. [email or web address] Not Available 02:47:08 05/01/2003/11/2022 imagi ng/di agnos tic resul t No observ ation record ed. [email or web address] Not Available 02:47:31 05/01/2003/15/2023 imagi ng/di agnos tic resul t No observ ation record ed. [email or web address] Not Available 02:47:37 05/01/2004/20/2022 imagi ng/di agnos tic resul t No observ ation record ed. [email or web address] Not Available 02:47:46 05/01/2004/20/2022 imagi ng/di agnos tic resul t No observ ation record ed. [email or web address] Not Available 02:47:49 Result Notes None recorded. 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 - [facility] 4 15:16:17 Allergic rhinitis 57621037 Active 2023 DIPESH QUEEN MD [address] [facility],[place] [address], [facility], [phone] , [facility] - [facility] 4 11:57:46 Problem Notes None recorded. Procedures Surgical History Date Name Laterality Status Provider Name and Address Organization Details Recorded Time 4 FOL_Reflux_JM S completed DIPESH SOTELO MD [address] [facility],[place] [address], [place], [address], [facility] - [facility] [place] 02/21/2024 11:57:38 4 excision of lesion of larynx completed DIPESH SOTELO MD [address] [facility],[place] [address], [place], [address], [facility] - [facility] [place] 02/20/2024 15:14:41 Imaging Results None recorded. Procedure Notes None recorded. Medical Equipment None Reported. Allergies Allergen ID Allergen Name Allergen Category Reaction Reaction Severity Criticality Documentation Date Start Date Code Code System Note Provider Name and Address Organization Details Recorded Time 045426 morphine medicatio n other Not available Not available 04/12/2024 7052 RxNorm React ion: Unkno wn; Not Available [facility] 4 00:31:33 Medications Name Sig Start Date Stop Date Status Note LastModified by Organization Details LastModified Time spironolac tone 25 mg tablet active Medicatio n ID: [id number] Br and Name: spironola ctone Sen d Method: E-Prescri bed Subs Allowed: subs OK Medica tionGener icName: spironola ctone Not Available Not Available Not Available omeprazole 20 mg capsule,de layed release active Medicatio n ID: [id number] Br and Name: omeprazol e Send Method: E-Prescri bed Subs Allowed: subs OK Medica tionGener icName: omeprazol e Not Available Not Available Not Available furosemide 20 mg tablet active Medicatio n ID: [id number] Br and Name: furosemid e Send Method: E-Prescri bed Subs Allowed: subs [place] Medica tionGener icName: furosemid e Not Available Not Available Not Available fluticason e propionate 50 mcg/actuat ion nasal spray,susp ension [place] 1 spray every day by intranasa l route. 2023 active Not Available Not Available Not Avai lable Vitamin D3 25 mcg (1,000 unit) capsule active Medicatio n ID: [id number] Br and Name: Vitamin D3 Send Method: E-Prescri bed Subs Allowed: subs [place] Medica tionGener icName: Vitamin D3 Not Available Not Available Not Available iron active Medicatio n ID: [id number] Br and Name: iron Send Method: E-Prescri bed Subs Allowed: subs [place] Medica tionGener icName: iron Not Available Not Available Not Available Vitals Date Recorded Body height Body mass index (BMI) Body weight Provider Name and Address Organization Details Last Updated DateTime 02/21/2024 180.34 cm 25.1 kg/m2 09680.63 g Jorge Davila [place] - [facility] 02/21/2024 11:35:38 Social History None recorded. Functional Status None recorded. Mental Status None recorded. Family History Nothing Reported. Medical History Condition Response Liver Disease Y Past Encounters Encounter ID Performer Location Encounter Start Date Encounter Closed Date Diagnosis/Indication Diagnosis SNOMED-CT Code Diagnosis ICD10 Code Diagnosis IMO Codes Diagnosis Note [id number] DIPESH QUEEN MD [facility] [address] [phone] 02/21/2024 11:33:13 02/21/2024 12:01:49 Chronic hoarseness 0415227557 105 R49.0 Allergic rhinitis 806945 04 J30.9 Health Concerns Section Related Observation LastModified by Organization Detai ls LastModified Time None Recorded Concern Status LastModified by Organization Details LastModified Time None Recorded Advance Directives Directive None Recorded Payers Insurance Date Sequence Insurance Name Policy Number Policy Membreno Covered Member ID Membreno Member ID Guarantor Name 02/29/2024 1 [facility] [place]MEDICAID HMO) [id number] Brian Birch [id number] Brian Birch Notes Date Note Type Note Provider Name and Address Organization Details Recorded Time 02/21/2024 text/html excision benign lesion right TVF 01/02/2024. Voice much improved. He has been having some postnasal drip with throat clearing due to allergy. He did rest his voice for 2 weeks. DIPESH SOTELO MD [address] [place] [address], [place], [address], [facility] - [facility] 02/21/2024 12:08:37
--- OUTSIDE RECORDS SUMMARY | 2025-06-12 10:04 | XMS_ITS | Encounter Summary ---
Author Organization [facility] Address [address] [place] [address] Phone Care Team Providers Care Mobile Home Installer Name Role Phone Hayden Britt MD Primary Care Provider Encounter Details Date Type Department Care Team (Latest Contact Info) Description 09/17/2024 Transcribe Orders [facility] Laboratory [address] [address] Brenda Aguiar NP 10 [place] [address] Alcoholic cirrhosis of liver without ascites (Primary [...] with a working camera? Not on file Intimate Partner Violence Answer Date R ecorded Denied Basic Needs Not on file 07/23/2024 In the past 12 months have y ou been in a relationship with a person who hurts, threatens, or tries to control you? No 07/23/2024 Worried food would run out Not on file 07/23 In the past 12 months have y ou been in a relationship with a person who hurts, threatens, or tries to control you? No 07/23/2024 Sex and Gender Information Value Date Recorded Sex Assigned at Male 11/10/2017 10:27 AM EST Legal Sex Male 9:17 PM EDT Gender Identity Male 11/10/2017 10:27 AM EST Sexual Orientation Straight 11/10/2017 10 :27 AM EST documented as of this encounter Plan of Treatment Upcoming Encounters Date Type Department Care Team (Late st Contact Info) Description 06/25/2025 8:15 AM EDT Appointment [address] [address] Fabrice Mcduffie MD [address] [place] [address] [email or web address] Scheduled Orders Name Type Priority Associated Diagnoses Orde r Schedule CBC Lab Routine Alcoholic cirrhosis of liver without ascites Monthly for 10 Occurrences starting 09/17/2024 until 09/17/2025, 1 completed documented as of this encounter Results * (ABNORMAL) PT-INR (09/17/2024 9:49 AM EST) [facility] PT 15.2(H) 10.2 - 12.9 sec [facility] INR 1.4(H) 0.9 - 1.1 [facility] Comment:Therapeutic range fo r oral Vitamin K antagonists: 2.0-3.5 Blood 09/17/2024 9:49 AM EST 09/17/2024 9:52 AM EST us Brenda Aguiar NP LAB BLOOD ORDERABLES Gloria avalos Result [address] [address] * C-Reactive Protein (09/17/2024 9:49 AM EST) C REACTIVE PROTEIN <3.0 0.0 - 4.0 mg/L [facility] Blood 09/17/2024 9:49 AM EST 09/17/2024 9:52 AM EST Brenda Aguiar NP LAB BLOOD ORDERABLES Gloria l Result Performing Organization Address [facility]/State/[facility] Co de Phone Number [facility] [address] [place] [address] * (ABNORMAL) Comprehensive metabolic panel (09/17/2024 9:49 AM EST) [facility] SODIUM 141 133 - 146 mmol/L [facility] POTASSIUM 3.7 3.3 - 5.1 mmol/L [facility] CHLORIDE 107 96 - 108 mmol/L [facility] CO2 27 21 - 35 mmol/L [facility] BUN 9 6 - 19 mg/dL [facility] CREATININE 0.50 0.5 - 1.5 mg/dL [facility] GLUCOSE 69(L) 70 - 99 mg/dL [facility] ALBUMIN 3.9 3.9 - 4.8 g/dL [facility] TOTAL PROTEIN 6.7 6.5 - 8.0 g/dL [facility] CALCIUM 9.3 8.4 - 10.3 mg/dL [facility] ALKALINE PHOSPHATASE 132(H) 39 - 117 U/L [facility] TOTAL BILIRUBIN 1.3(H) 0.0 - 1.2 mg/dL [facility] AST 58(H) 0 - 37 U/L [facility] ALT 52(H) 0 - 40 U/L [facility] GLOBULIN 2.8 1 - 4.8 g/dL [facility] EGFR >120 >59 mL/min/1.7 3m2 [facility] Comment:Estimated glomerular filtration rate calculated using the CKD-EPI refit equation. ANION GAP 11 10 - 20 mmol/L [facility] Blood 09/17/2024 9:49 AM EST 09/17/2024 9:52 AM EST Brenda Aguiar NP LAB BLOOD ORDERABLES Gloria l Result Performing Organization Address City/[facility] Co de Phone Number [address] [address] * (ABNORMAL) CBC (09/17/2024 9:49 AM EST) WBC 4.91 4.00 - 11.00 K/uL [facility] RBC 4.57 4.50 - 5.90 M/uL [facility] HGB 14.7 13.5 - 17.5 g/dL [facility] HCT 42.5 41.0 - 53.0 % [facility] PLT 98(L) 150 - 450 K/uL [facility] Comment:Microscopic estimate : Platelets decreased. MCV 93.0 80.0 - 100.0 fL [facility] MCH 32.2(H) 27.0 - 31.0 pg [facility] MCHC 34.6 32.0 - 36.0 g/dL [facility] RDW 15.2(H) 11.5 - 14.5 % [facility] MPV 10.3 8.4 - 12.0 fL [facility] NRBC 0.00 0.00 /100 WBCs [facility] ABSOLUTE NRBC 0.00 0.00 K/uL [facility] Blood 09/17/2024 9:49 AM EST 09/17/2024 9:52 AM EST Brenda Aguiar MEAT BUTCHER LAB BLOOD ORDERABLES Gloria l Result Performing Organization Address [facility]/ZIP Co de Phone Number [address] [address] * AFP (non-maternal specimens) (09/17/2024 9:49 AM EST) Pathologist [facility] AFP (NON-MATERNAL) 4.1 <7.9 ng/mL [facility] Comment: Test Methodology Andrae [id number] Patient results determined by assays using different manufacturers or methods may not be comparable. Blood 09/17/2024 9:49 AM EST 09/17/2024 9:52 AM EST Brenda Aguiar MEAT BUTCHER LAB BLOOD ORDERABLES Gloria l Result [facility] [address] [place], [place] [phone] documented in this encounter Visit Diagnoses Diagnosis Alcoholic cirrhosis of liver without ascites- Primary documented in this encounter Care Teams Mobile Home Installer Relationship Specialty Start Date End Date Hayden Britt MD [address] [place] [address] Dr SMART [address] [place] [phone] PCP - General Internal Medicine 11/04/21 documented as of this encounter Additional Source Comments The information contained in this document represents components of the legal health record. It is not the complete legal health record.[facility]
--- OUTSIDE RECORDS SUMMARY | 2025-06-12 10:04 | XMS_ITS | Encounter Summary ---
Author Organization [facility] Address [address] [place] [address] Phone Care Team Providers Care Air Technician Name Role Phone Hayden Britt MD Primary Care Provider Encounter Details Date Type Department Care Team (Latest Contact Info) Description 03/25/2024 Transcribe Orders Virtual Department 30 [place] [address] Fabrice Mcduffie MD [address] [place] [address] [email or web address] Alcoholic cirrhosis, unspecified whether ascites present [...] Info) Description 06/25/2025 8:15 AM EDT Appointment [facility], Ultrasound - [facility] [place] [address] [place] [address] Fabrice Mcduffie MD [address] [place] [phone] [email or web address] documented as of this encounter Results * US ABDOMEN LIMITED RIGHT UPPER QUADRANT (06/20/2024 9:20 AM EDT) Anatomical Region Laterality Modality Abdomen Ultrasound 06/20/2024 10:3 4 AM EDT Impressions 06/20/2024 10:37 AM EDT Coarsened, heterogeneous echogenicity to the liver with nodular surface contour consistent with cirrhosis. No focal lesions are identified. Cholelithiasis without evidence of acute cholecystitis. Scant ascites. Narrative 06/20/2024 10:37 AM EDT Procedure: US ABDOMEN LIMITED RIGHT UPPER QUADRANT 06/20/2024 8:49 AM US Indications: Outside Radiology Order; cirrhosis. Comparison: MRI abdomen dated December 13, 2023. Ultrasound limited dated December 12, 2023. CT abdomen/pelvis dated December 11, 2023. Technique: Serial longitudinal and transverse real time grayscale images, were acquired through the abdomen utilizing a curved array transducer. Color Doppler images were used assess vascularity. FINDINGS: Liver: Examination of the liver demonstrates coarsened and heterogeneous echogenicity. There is a nodular hepatic surface contour. There are no solid hepatic masses. No intrahepatic bile duct dilatation. Gallbladder: There are shadowing calcifications within an nondistended gallbladder. There is no pericholecystic fluid, or gallbladder wall thickening. The bladder is under distended. The gallbladder wall measures 3 mm. The common bile duct is normal in caliber measuring 2 mm in diameter. Sonographic Herman's sign was assessed and negative. Pancreas: The visible portions of the mid pancreas have a normal texture and shape. Limited visualization the pancreas tail. Kidneys: The right kidney is normal in shape and position. The cortical thickness is normal and there is normal echogenicity. The right kidney measures 12.1 cm in length. There is no evidence of hydronephrosis, shadowing calcifications, solid/cystic masses or perinephric collections. Vascular: Partial visualization of the aorta secondary to obscuration from overlying bowel gas. The visualized portions of the aorta are normal. The IVC is adequately visualized and is patent. The portal vein diameter is cm. Color interrogation of the portal vein reveals patency and hepatopetal flow, revealing a appropriate spectral venous duplex waveform.. Ascites: Scant perihepatic fluid. Procedure Note Nine, Hipolito Izquierdo MD - 06/20/2024 Procedure: US ABDOMEN LIMITED RIGHT UPPER QUADRANT 06/20/2024 8:49 AM US Indications: Outside Radiology Order; cirrhosis. Comparison: MRI abdomen dated December 13, 2023. Ultrasound limited datedApr2023. CT abdomen/pelvis dated December 11, 2023. Technique: Serial longitudinal and transverse real time grayscale images,were acquired through the abdomen utilizing a curved array transducer.Color Doppler images were used assess vascularity. FINDINGS: Liver: Examination of the liver demonstrates coarsened and heterogeneousechogenicity. There is a nodular hepatic surface contour. There are nosolid hepatic masses. No intrahepatic bile duct dilatation. Gallbladder: There are shadowing calcifications within an nondistendedgallbladder. There is no pericholecystic fluid, or gallbladder wallthickening. The bladder is under distended. The gallbladder wall measures3 mm. The common bile duct is normal in caliber measuring 2 mm indiameter. Sonographic Herman's sign was assessed and negative. Pancreas: The visible portions of the mid pancreas have a normal textureand shape. Limited visualization the pancreas tail. Kidneys: The right kidney is normal in shape and position. The corticalthickness is normal and there is normal echogenicity. The right kidneymeasures 12.1 cm in length. There is no evidence of hydronephrosis,shadowing calcifications, solid/cystic masses or perinephriccollections. Vascular: Partial visualization of the aorta secondary to obscuration fromoverlying bowel gas. The visualized portions of the aorta are normal. TheIVC is adequately visualized and is patent. The portal vein diameter iscm. Color interrogation of the portal vein reveals patency and hepatopetalflow, revealing a appropriate spectral venous duplex waveform.. Ascites: Scant perihepatic fluid. IMPRESSION: Coarsened, heterogeneous echogenicity to the liver with nodular surfacecontour consistent with cirrhosis. No focal lesions are identified. Cholelithiasis without evidence of acute cholecystitis. Scant ascites. Fabrice Mcduffie MD IMG US ABDOMEN Final Resu lt documented in this encounter Visit Diagnoses Diagnosis Alcoholic cirrhosis, unspecified whether ascites present- Primary Alcoholic cirrhosis, unspecified whether ascites present documented in this encounter Care Teams Air Technician Relationship Specialty Start Date End Date Hayden Britt MD [address] [place] [address] [place] [address] PCP - General Internal Medicine 11/04/21 documented as of this encounter Additional Source Comments The information contained in this document represents components of the legal health record. It is not the complete legal health record.[facility]
--- OUTSIDE RECORDS SUMMARY | 2025-06-12 10:04 | XMS_ITS | Encounter Summary ---
Author Organization [facility] Address [address] [place] [address] Phone Care Team Providers Care Mails Supervisor Name Role Phone Hayden rBitt MD Primary Care Provider Encounter Details Date Type Department Care Team (Latest Contact Info) Description 12/14/2021 Transcribe Orders Virtual Department [address] [place] [address] Brenda Aguiar NP [address] [place] [address] Acute liver failure without hepatic coma (Primary Dx) Social History Tobacco Use Types [...] Info) Description 06/25/2025 8:15 AM EDT Appointment [facility] 30 [place] [address] Fabrice Mcduffie MD [address] [address] [email or web address] documented as of this encounter Visit Diagnoses Diagnosis Acute liver failure without hepatic coma- Primary documented in this encounter Care Teams Mails Supervisor Relationship Specialty Start Date End Date Hayden Britt MD [address] [place] [address] [place] [address] PCP - General Internal Medicine 11/04/21 documented as of this encounter Additional Source Comments The information contained in this document represents components of the legal health record. It is not the complete legal health record.[facility]
--- OUTSIDE RECORDS SUMMARY | 2025-06-12 10:04 | XMS_ITS | Encounter Summary ---
Author Organization [facility] Address [address] [place] [address] Phone Care Team Providers Care Swiss Machinist Name Role Phone Hayden Britt MD Primary Care Provider Encounter Details Date Type Department Care Team (Latest Contact Info) Description 05/26/2023 Transcribe Orders [facility] Laboratory [address] [address] Fabrice Mcduffie MD [address] [address] [email or web address] Alcoholic cirrhosis of liver with ascites (Primary Dx) Social History Tobacco Use [...] Info) Description 06/25/2025 8:15 AM EDT Appointment [facility], Ultrasound - [facility] 30 [place] [address] Fabrice Mcduffie MD [address] [place] [address] [email or web address] documented as of this encounter Results * (ABNORMAL) PT-INR (05/26/2023 9:19 AM EDT) PT 14.7(H) 10.2 - 12.9 sec [facility] INR 1.3(H) 0.9 - 1.1 [facility] Comment:Therapeutic range fo r oral Vitamin K antagonists: 2.0-3.5 Blood 05/26/2023 9:19 AM EDT 05/26/2023 9:22 AM EDT us Fabrice Mcduffie MD LAB BLOOD ORDERABLES Final Result [address] [address] * (ABNORMAL) Comprehensive metabolic panel (05/26/2023 9:19 AM EDT) SODIUM 141 133 - 146 mmol/L [facility] POTASSIUM 4.0 3.3 - 5.1 mmol/L [facility] CHLORIDE 105 96 - 108 mmol/L [facility] CO2 27 21 - 35 mmol/L [facility] BUN 8 6 - 19 mg/dL [facility] CREATININE 0.60 0.5 - 1.5 mg/dL [facility] GLUCOSE 90 70 - 99 mg/dL [facility] ALBUMIN 4.0 3.9 - 4.8 g/dL [facility] TOTAL PROTEIN 7.1 6.5 - 8.0 g/dL [facility] CALCIUM 9.0 8.4 - 10.3 mg/dL [facility] ALKALINE PHOSPHATASE 173(H) 39 - 117 U/L [facility] TOTAL BILIRUBIN 2.2(H) 0.0 - 1.2 mg/dL [facility] AST 59(H) 0 - 37 U/L [facility] ALT 39 0 - 40 U/L [facility] GLOBULIN 3.1 1 - 4.8 g/dL [facility] EGFR >120 >59 mL/min/1.7 3m2 [facility] Comment:Estimated glomerular filtration rate calculated using the CKD-EPI refit equation. ANION GAP 13 10 - 20 mmol/L [facility] Blood 05/26/2023 9:19 AM EDT 05/26/2023 9:22 AM EDT us Fabrice Mcduffie MD LAB BLOOD ORDERABLES Final Result Performing Organization Address City/State/[facility] Co de Phone Number [address] [address] * (ABNORMAL) CBC (05/26/2023 9:19 AM EDT) WBC 6.21 4.00 - 11.00 K/uL [facility] RBC 4.39 4.23 - 5.82 M/uL [facility] HGB 14.3 13.4 - 17.5 g/dL [facility] HCT 42.5 37.0 - 51.0 % [facility] PLT 121(L) 140 - 430 K/uL [facility] MCV 96.8 78.0 - 97.0 fL [facility] MCH 32.6 25.0 - 33.0 pg [facility] MCHC 33.6 32.0 - 36.0 g/dL [facility] RDW 15.9(H) 11.0 - 15.0 % [facility] MPV 9.7 8.4 - 12.8 [facility] Blood 05/26/2023 9:19 AM EDT 05/26/2023 9:22 AM EDT us Fabrice Mcduffie MD LAB BLOOD ORDERABLES Final Result Performing Organization Address City/[facility]/ZIP Co de Phone Number [address] [address] * AFP (non-maternal specimens) (05/26/2023 9:19 AM EDT) AFP (NON-MATERNAL) 4.3 <7.9 ng/mL [facility] Comment: Test Methodology Andrae [id number] Patient results determined by assays using different manufacturers or methods may not be comparable. Blood 05/26/2023 9:19 AM EDT 05/26/2023 9:22 AM EDT Fabrice Mcduffie MD LAB BLOOD ORDERABLES Final Result Performing Organization Address City/[facility]/ZIP Co de Phone Number [address] [address] documented in this encounter Visit Diagnoses Diagnosis Alcoholic cirrhosis of liver with ascites- Primary documented in this encounter Care Teams Swiss Machinist Relationship Specialty Start Date End Date Hayden Britt MD [address] [place] [address] [place] [address] PCP - General Internal Medicine 11/04/21 documented as of this encounter Additional Source Comments The information contained in this document represents components of the legal health record. It is not the complete legal health record.[facility]
--- OUTSIDE RECORDS SUMMARY | 2025-06-12 10:04 | XMS_ITS | Encounter Summary ---
Author Organization [facility] Address [address] [place] [phone] Phone Care Team Providers Care Journeyman Sheet Metal Worker Name Role Phone Hayden Britt MD Primary Care Provider Encounter Details Date Type Department Care Team (Latest Contact Info) Description 09/09/2022 Transcribe Orders Virtual Department [address] [place] [address] Fabrice Mcduffie MD [address] [place] [address] [email or web address] Hepatoma (Primary Dx) Social History Tobacco Use Types [...] Info) Description 06/25/2025 8:15 AM EDT Appointment [address] [address] Fabrice Mcduffie MD [address] [place] [address] [email or web address] documented as of this encounter Results * US ABDOMEN LIMITED RIGHT UPPER QUADRANT (09/27/2022 8:54 AM EST) Anatomical Region Laterality Modality Abdomen Ultrasound 09/27/2022 9:44 AM EST Impressions 09/27/2022 9:49 AM EST 1. Echogenic and coarsened hepatic echotexture with mild nodularity of the hepatic contour suggestive of cirrhosis. 2. Vague 2.9 cm area of minimally decreased echogenicity at the right hepatic lobe, incompletely characterized sonographically. Contrast-enhanced MRI recommended for further evaluation. 3. Cholelithiasis without sonographic evidence of acute cholecystitis Narrative 09/27/2022 9:49 AM EST US ABDOMEN LIMITED RIGHT UPPER QUADRANT TECHNIQUE: US Abdominal limited right upper quadrant. COMPARISON: Sonography 03/11/2022 FINDINGS: Liver: Increased echogenicity of the hepatic parenchyma again with coarsened echotexture and mildly nodular contour suggestive of cirrhosis. There is a vague 2.7 x 2.4 x 2.9 cm area of minimally decreased echogenicity at the right hepatic lobe. Main Portal Vein: Patent with normal direction of flow. Gallbladder: Layering gallstones are present. No gallbladder wall thickening or pericholecystic fluid. Herman's Sign: Negative. Biliary: No intrahepatic or extrahepatic biliary ductal dilatation. The common bile duct measures 3 mm. Right Kidney: No stones or hydronephrosis. Procedure Note Wanda Plunkett MD - 09/27/2022 US ABDOMEN LIMITED RIGHT UPPER QUADRANT TECHNIQUE: US Abdominal limited right upper quadrant. COMPARISON: Sonography 03/11/2022 FINDINGS: Liver: Increased echogenicity of the hepatic parenchyma again withcoarsened echotexture and mildly nodular contour suggestive of cirrhosis.There is a vague 2.7 x 2.4 x 2.9 cm area of minimally decreasedechogenicity at the right hepatic lobe. Main Portal Vein: Patent with normal direction of flow. Gallbladder: Layering gallstones are present. No gallbladder wallthickening or pericholecystic fluid. Herman's Sign: Negative. Biliary: No intrahepatic or extrahepatic biliary ductal dilatation. The common bile duct measures 3 mm. Right Kidney: No stones or hydronephrosis. IMPRESSION: 1. Echogenic and coarsened hepatic echotexture with mild nodularity ofthe hepatic contour suggestive of cirrhosis. 2. Vague 2.9 cm area of minimally decreased echogenicity at the righthepatic lobe, incompletely characterized sonographically.Contrast-enhanced MRI recommended for further evaluation. 3. Cholelithiasis without sonographic evidence of acute cholecystitis us Fabrice Michael Mcduffie MD IMG US ABDOMEN Final Resu lt documented in this encounter Visit Diagnoses Diagnosis Hepatoma- Primary Malignant neoplasm of liver, primary Hepatoma Malignant neoplasm of liver, primary documented in this encounter Care Teams Journeyman Sheet Metal Worker Relationship Specialty Start Date End Date Hayden Britt MD [address] [place] [address] [place] [address] PCP - General Internal Medicine 11/04/21 documented as of this encounter Additional Source Comments The information contained in this document represents components of the legal health record. It is not the complete legal health record.[facility]
--- OUTSIDE RECORDS SUMMARY | 2025-06-12 10:04 | XMS_ITS | Encounter Summary ---
Author Organization [facility] Address [address] [place] [phone] Phone Care Team Providers Care Pit Laborer Name Role Phone Unknown, Unknown Primary Care Provider [place] duckworth Pcp, Unknown Primary Care Provider Hayden Chu MD Primary Care Provider Encounter Details Date Type Department Care Team (Late Contact Info) Description 10/13/2021 Procedure Pass [facility] Interventional [facility]iology [address] [place] [address] Social History Tobacco Use Types Packs/Day Years [...] Info) Description 06/25/2025 8:15 AM EDT Appointment [facility] [address] [place] [address] Fabrice Mcduffie MD [address] [place] [address] [email or web address] documented as of this encounter Visit Diagnoses Not on filedocumented in this encounter Additional Health Concerns Infection Onset Date Last Indicated Resolved Time MRSA Comment:Import to add expiration date of 11/27/2021 per Infection Control as part of historical infection status reconciliation 06/14/2005 06/14/2005 11/28/19 22 1:35 AM EDT documented as of this encounter Care Teams Pit Laborer Relationship Specialty Start Date End Date Unknown, Unknown, MD PCP - General 11/10/17 10/21/21 Pcp, Unknown PCP - General 10/22/21 11/03/21 Hayden Britt MD [address] [place] [address] Dr [place], [place] [address] PCP - General Internal Medicine 11/04/21 documented as of this encounter Additional Source Comments The information contained in this document represents components of the legal health record. It is not the complete legal health record.[facility]
--- OUTSIDE RECORDS SUMMARY | 2025-06-12 10:04 | XMS_ITS | Encounter Summary ---
Author Organization [facility] Address [address] [place] [phone] Phone Care Team Providers Care Guide Escort Name Role Phone Pcp, Unknown Primary Care Provider Hayden Chu MD Primary Care Provider Encounter Details Date Type Department Care Team (Late st Contact Info) Description 10/30/2021 Procedure Pass [facility] [address] [place] [address] Social History Tobacco Use Types Packs/Day Years [...] Date of Assessment Author No Risk Indicated 11/02/2021 11:26 PM Mannie Syed RN * [place] Suicide Severity Rating Scale (Screener/Recent Self-Report) Question Answer Date of Assessment Author 1. Wish to be (Past 1 Month) No 022 11:26 PM Mannie Syed, RN 2. Non-Specific Active Suici mercedes Thoughts (Past 1 Month) No 11/02/2021 11:26 PM Jhoan Syed ea, RN 6. Suicidal Behavior (Lifetime) No 2 11:26 PM Mannie Syed RN documented as of this encounter Plan of Treatment Upcoming Encounters Date Type Department Care Team (Late st Contact Info) Description 06/25/2025 8:15 AM EDT Appointment [facility], [facility]ound - [facility] [address] [place] [address] Fabrice Mcduffie MD [address] [place] [address] 2 [place] [address] [email or web address] documented as of this encounter Visit Diagnoses Not on filedocumented in this encounter Additional Health Concerns Infection Onset Date Last Indicated Resolved Time MRSA Comment:Import to add expiration date of 11/27/2021 per Infection Control as part of historical infection status reconciliation 06/14/2005 06/14/2005 11/28/19 22 1:35 AM EDT documented as of this encounter Care Teams Guide Escort Relationship Specialty Start Date End Date Pcp, Unknown PCP - General 10/22/21 11/03/21 Hayden Britt MD [address] [place] [address] [address] [place] [address] PCP - General Internal Medicine 11/04/21 documented as of this encounter Additional Source Comments The information contained in this document represents components of the legal health record. It is not the complete legal health record.[facility]
--- OUTSIDE RECORDS SUMMARY | 2025-06-12 10:04 | XMS_ITS | Encounter Summary ---
Author Organization [facility] Address [address] [place] [address] Phone Care Team Providers Care Boiler/Chiller Operator Name Role Phone Hayden Britt MD Primary Care Provider Encounter Details Date Type Department Care Team (Latest Contact Info) Description 12/12/2024 Transcribe Orders Virtual Department [address] [place] [address] Fabrice Mcduffie MD [address] [place] [address] [email or web address] Alcoholic cirrhosis, unspecified whether ascites present (Primary [...] Info) Description 06/25/2025 8:15 AM EDT Appointment [facility], [facility] [address] [place] [address] Fabrice Mcduffie MD [address] [place] [address] [email or web address] documented as of this encounter Results * US ABDOMEN LIMITED RIGHT UPPER QUADRANT (12/24/2024 9:29 AM EDT) Anatomical Region Laterality Modality Abdomen Ultrasound 12/24/2024 10:4 2 AM EDT Impressions 12/24/2024 10:45 AM EDT 1. Cirrhosis without focal hepatic mass. 2. Cholelithiasis, nonspecific mild gallbladder wall thickening could reflect chronic liver disease, otherwise without evidence of acute cholecystitis. 3. Trace ascites, perihepatic. Narrative 12/24/2024 10:45 AM EDT US ABDOMEN LIMITED RIGHT UPPER QUADRANT Referring clinician's provided indication for this examination in Epic: Outside Radiology Order; Cirrhosis TECHNIQUE: US Abdominal limited right upper quadrant. COMPARISON: US ABDOMEN LIMITED RIGHT UPPER QUADRANT FINDINGS: Liver: Cirrhotic. Main Portal Vein: Patent with normal direction of flow. Gallbladder: Mild 4 mm gallbladder wall thickening could reflect chronic liver disease, nonspecific. Cholelithiasis. No pericholecystic fluid. Herman's Sign: Negative. Biliary: Normal. No intrahepatic or extrahepatic biliary ductal dilatation. The common bile duct measures 3 mm. Trace ascites, perihepatic. 12.5 cm right kidney. No hydronephrosis. Procedure Note Sowmya Du MD - 12/24/2024 US ABDOMEN LIMITED RIGHT UPPER QUADRANT Referring clinician's provided indication for this examination in Epic:Outside Radiology Order; Cirrhosis TECHNIQUE: US Abdominal limited right upper quadrant. COMPARISON: US ABDOMEN LIMITED RIGHT UPPER QUADRANT FINDINGS: Liver: Cirrhotic. Main Portal Vein: Patent with normal direction of flow. Gallbladder: Mild 4 mm gallbladder wall thickening could reflect chronicliver disease, nonspecific. Cholelithiasis. No pericholecystic fluid. Herman's Sign: Negative. Biliary: Normal. No intrahepatic or extrahepatic biliary ductaldilatation. The common bile duct measures 3 mm. Trace ascites, perihepatic. 12.5 cm right kidney. No hydronephrosis. IMPRESSION: 1. Cirrhosis without focal hepatic mass. 2. Cholelithiasis, nonspecific mild gallbladder wall thickening couldreflect chronic liver disease, otherwise without evidence of acutecholecystitis. 3. Trace ascites, perihepatic. Fabrice Mcduffie MD IM US ABDOMEN Final Resu lt documented in this encounter Visit Diagnoses Diagnosis Alcoholic cirrhosis, unspecified whether ascites present- Primary Alcoholic cirrhosis, unspecified whether ascites present documented in this encounter Care Teams Boiler/Chiller Operator Relationship Specialty Start Date End Date Hayden Britt MD [address] [place] [address] [place] [address] PCP - General Internal Medicine 11/04/21 documented as of this encounter Additional Source Comments The information contained in this document represents components of the legal health record. It is not the complete legal health record.[facility]
--- OUTSIDE RECORDS SUMMARY | 2025-06-12 10:04 | XMS_ITS | Encounter Summary ---
Author Organization [facility] Address [address] [place] [phone] Phone Care Team Providers Care High School Business Teacher Name Role Phone Hayden Britt MD Primary Care Provider Encounter Details Date Type Department Care Team (Late st Contact Info) Description 07/26/2024 Procedure Pass [facility] Endoscopy Admitting Dept Virtual Department [address] [place] [address] Social History Tobacco Use Types Packs/Day Years [...] Info) Description 06/25/2025 8:15 AM EDT Appointment [facility], [facility]trasound - [facility] [address] [place] [address] Fabrice Mcduffie MD [address] [place] [address] 2 [place] [address] [email or web address] documented as of this encounter Visit Diagnoses Not on filedocumented in this encounter Care Teams High School Business Teacher Relationship Specialty Start Date End Date Hayden Britt MD [address] [place] [address] 303 [place] [address] PCP - General Internal Medicine 11/04/21 documented as of this encounter Additional Source Comments The information contained in this document represents components of the legal health record. It is not the complete legal health record.[facility]
--- OUTSIDE RECORDS SUMMARY | 2025-06-12 10:04 | XMS_ITS | Encounter Summary ---
Author Organization [facility] Address [address] [place] [address] Phone Care Team Providers Care Rn Cvor Name Role Phone Hayden Britt MD Primary Care Provider Encounter Details Date Type Department Care Team (Late st Contact Info) Description 10/31/2023 Procedure Pass [facility] [place], Ct Scan - [address] [address] Social History Tobacco Use Types Packs/Day Years [...] Info) Description 06/25/2025 8:15 AM EDT Appointment [facility] [place], Ultrasound - [facility] [address] [place] [address] Fabrice Mcduffie MD [address] [place] [address] 2 [place] [address] [email or web address] documented as of this encounter Visit Diagnoses Not on filedocumented in this encounter Care Teams Rn Cvor Relationship Specialty Start Date End Date Hayden Britt MD [address] [place] [address] 303 [place] [address] PCP - General Internal Medicine 11/04/21 documented as of this encounter Additional Source Comments The information contained in this document represents components of the legal health record. It is not the complete legal health record.[facility]
--- OUTSIDE RECORDS SUMMARY | 2025-06-12 10:04 | XMS_ITS | Encounter Summary ---
Author Organization [facility] Address [address] [place] [address] Phone Care Team Providers Care Design Sales Consultant Name Role Phone Hayden Britt MD Primary Care Provider Encounter Details Date Type Department Care Team (Latest Contact Info) Description 04/29/2025 Transcribe Orders Virtual Department [address] [place] [address] Fabrice Mcduffie MD [address] [place] [address] [email or web address] Alcoholic cirrhosis, unspecified whether ascites present [...] Description 06/25/2025 8:15 AM EDT Appointment [facility], [facility] [address] [place] [address] Fabrice Mcduffie MD [address] [place] [address] [email or web address] Scheduled Orders Name Type Priority Associated Diagnoses Orde r Schedule US Abdomen Limited Imaging Routine Alcoholic cirrhosis, unspecified whether ascites present Expected: 06/25/2025, Expires: 04/29/2026 documented as of this encounter Visit Diagnoses Diagnosis Alcoholic cirrhosis, unspecified whether ascites present- Primary documented in this encounter Care Teams Design Sales Consultant Relationship Specialty Start Date End Date Hayden Britt MD [address] [place] [address] [address] [place] [address] PCP - General Internal Medicine 11/04/21 documented as of this encounter Additional Source Comments The information contained in this document represents components of the legal health record. It is not the complete legal health record.[facility]
--- OUTSIDE RECORDS SUMMARY | 2025-06-12 10:04 | XMS_ITS | Encounter Summary ---
Author Organization [facility] Address [address] [place] [address] Phone Care Team Providers Care Automotive Electrical Helper Name Role Phone Hayden Britt MD Primary Care Provider Encounter Details Date Type Department Care Team (Latest Contact Info) Description 11/28/2022 Transcribe Orders Virtual Department [address] [place] [address] Brenda Aguiar NP [address] [place] [address] Alcoholic cirrhosis of liver without ascites (Primary [...] Info) Description 06/25/2025 8:15 AM EDT Appointment [facility], [facility] [address] [place] [address] Fabrice Mcduffie MD [address] [place] [address] [email or web address] documented as of this encounter Visit Diagnoses Diagnosis Alcoholic cirrhosis of liver without ascites- Primary documented in this encounter Care Teams Automotive Electrical Helper Relationship Specialty Start Date End Date Hayden Britt MD [address] [place] [address] Dr SMART [address] [place] [address] PCP - General Internal Medicine 11/04/21 documented as of this encounter Additional Source Comments The information contained in this document represents components of the legal health record. It is not the complete legal health record.[facility]
--- OUTSIDE RECORDS SUMMARY | 2025-06-12 10:04 | XMS_ITS | Encounter Summary ---
Author Organization [facility] Address [address] [place] [address] Phone Care Team Providers Care Brigadier Name Role Phone Hayden Britt MD Primary Care Provider Encounter Details Date Type Department Care Team (Late st Contact Info) Description 10/27/2023 Procedure Pass [facility], [address] [address] Social History Tobacco Use Types Packs/Day Years [...] Info) Description 06/25/2025 8:15 AM EDT Appointment [facility], Ultrasound [facility] 30 [place] [address] Fabrice Mcduffie MD [address] [place] [address] [email or web address] documented as of this encounter Visit Diagnoses Not on filedocumented in this encounter Care Teams Brigadier Relationship Specialty Start Date End Date Hayden Britt MD [address] [place] [address] 303 [place] [address] PCP - General Internal Medicine 11/04/21 documented as of this encounter Additional Source Comments The information contained in this document represents components of the legal health record. It is not the complete legal health record.[facility]
--- OUTSIDE RECORDS SUMMARY | 2025-06-12 10:04 | XMS_ITS | Encounter Summary ---
Author Organization [facility] Address [address] [place] [address] Phone Care Team Providers Care Longitudinal Float Operator Name Role Phone Hayden Britt MD Primary Care Provider Encounter Details Date Type Department Care Team (Latest Contact Info) Description 12/14/2021 Transcribe Orders [facility] [address] [address] Brenda Aguiar NP 10 [place] [address] Acute liver failure without hepatic coma (Primary [...] Info) Description 06/25/2025 8:15 AM EDT Appointment [facility] 30 [place] [address] Fabrice Mcduffie MD [address] [address] documented as of this encounter Results * (ABNORMAL) PT-INR (12/14/2021 2:36 PM EDT) PT 18.5(H) 10.2 - 12.9 sec [facility] INR 1.6(H) 0.9 - 1.1 [facility] Comment:Therapeutic range fo r oral Vitamin K antagonists: 2.0-3.5 Blood 12/14/2021 2:36 PM EDT 12/14/2021 2:40 PM EDT Brenda Aguiar CONCRETE BUCKET UNLOADER LAB BLOOD ORDERABLES Gloria l Result Performing Organization Address [facility]/ZIP Co de Phone Number [address] [address] * Magnesium (12/14/2021 2:36 PM EDT) Pathologist [facility] MAGNESIUM 1.6 1.6 - 2.6 mg/dL [facility] Blood 12/14/2021 2:36 PM EDT 12/14/2021 2:40 PM EDT Brenda Aguiar CONCRETE BUCKET UNLOADER LAB BLOOD ORDERABLES Gloria l Result Performing Organization Address [facility]/ZIP Co de Phone Number [address] [address] * Folate (12/14/2021 2:36 PM EDT) FOLIC ACID 18.3 4.2 - 19.9 ng/mL [facility] Blood 12/14/2021 2:36 PM EDT 12/14/2021 2:40 PM EDT Brenda Aguiar CONCRETE BUCKET UNLOADER LAB BLOOD ORDERABLES Gloria l Result Performing Organization Address [facility]/ZIP Co de Phone Number [address] [address] * 25-OH vitamin D (12/14/2021 2:36 PM EDT) Pathologist [facility] 25 OH VIT D (TOTAL) 39 30 - 60 ng/mL [facility] Blood 12/14/2021 2:36 PM EDT 12/14/2021 2:40 PM EDT Brenda Aguiar CONCRETE BUCKET UNLOADER LAB BLOOD ORDERABLES Gloria l Result [address] [address] * (ABNORMAL) C-Reactive Protein (12/14/2021 2:36 PM EDT) [facility] C REACTIVE PROTEIN 13.2(H) 0.0 - 4.0 mg/L [facility] Blood 12/14/2021 2:36 PM EDT 12/14/2021 2:40 PM EDT Brenda Aguiar CONCRETE BUCKET UNLOADER LAB BLOOD ORDERABLES Gloria l Result Performing Organization Address City/[facility]/ZIP Co de Phone Number [address] [address] * (ABNORMAL) Comprehensive metabolic panel (12/14/2021 2:36 PM EDT) Pathologist [facility] SODIUM 129(L) 133 - 146 mmol/L [facility] POTASSIUM 4.4 3.3 - 5.1 mmol/L [facility] CHLORIDE 95(L) 96 - 108 mmol/L [facility] CO2 25 21 - 35 mmol/L [facility] BUN 7 6 - 19 mg/dL [facility] CREATININE 0.40(L) 0.5 - 1.5 mg/dL [facility] GLUCOSE 88 70 - 99 mg/dL [facility] ALBUMIN 3.3(L) 3.9 - 4.8 g/dL [facility] TOTAL PROTEIN 8.0 6.5 - 8.0 g/dL [facility] CALCIUM 9.4 8.4 - 10.3 mg/dL [facility] ALKALINE PHOSPHATASE 147(H) 39 - 117 U/L [facility] TOTAL BILIRUBIN 3.3(H) 0.0 - 1.2 mg/dL [facility] AST 107(H) 0 - 37 U/L [facility] ALT 51(H) 0 - 40 U/L [facility] GLOBULIN 4.7 1 - 4.8 g/dL [facility] EGFR >120 >59 mL/min/1.7 3m2 [facility] Comment:Estimated glomerular filtration rate calculated using the CKD-EPI refit equation. ANION GAP 13 10 - 20 mmol/L [facility] Blood 12/14/2021 2:36 PM EDT 12/14/2021 2:40 PM EDT Brenda Aguiar NP LAB BLOOD ORDERABLES Gloria avalos Result Performing Organization Address City/State/[facility] Co de Phone Number [address] [address] * (ABNORMAL) CBC and differential (12/14/2021 2:36 PM EDT) WBC 12.15(H) 4.00 - 11.00 K/uL [facility] RBC 3.36(L) 4.23 - 5.82 M/uL [facility] HGB 12.0(L) 13.4 - 17.5 g/dL [facility] HCT 34.8(L) 37.0 - 51.0 % [facility] PLT 202 140 - 430 K/uL [facility] MCV 103.6(H) 78.0 - 97.0 fL [facility] MCH 35.7(H) 25.0 - 33.0 pg [facility] MCHC 34.5 32.0 - 36.0 g/dL [facility] RDW 13.3 11.0 - 15.0 % [facility] MPV 9.4 8.4 - 12.8 [facility] NRBC 0.00 0 /100 WBCs [facility] ABSOLUTE NRBC 0.00 0 K/uL [facility] DIFF METHOD Auto [facility] NEUTS 71.1 43.0 - 75.0 % [facility] LYMPHS 14.6(L) 18.2 - 47.4 % [facility] MONOS 11.0 4.00 - 11.00 % [facility] EOS 2.0 0.0 - 8.0 % [facility] BASOS 0.7 0.0 - 2.0 % [facility] Granulocytes, immature (%) 0.6 0.0 - 0.9 % [facility] ABSOLUTE NEUTS 8.64(H) 1.80 - 7.70 K/uL [facility] ABSOLUTE LYMPHS 1.77 1.00 - 3.10 K/uL [facility] ABSOLUTE MONOS 1.34(H) 0.20 - 0.80 K/uL [facility] ABSOLUTE EOS 0.24 0.00 - 0.80 K/uL [facility] ABSOLUTE BASOS 0.09 0.00 - 0.09 K/uL [facility] Granulocytes, immature 0.07(H) 0.00 - 0.05 K/uL [facility] Blood 12/14/2021 2:36 PM EDT 12/14/2021 2:40 PM EDT us Brenda Aguiar CONCRETE BUCKET UNLOADER LAB BLOOD ORDERABLES Gloria l Result [facility] [address] [place] [address] documented in this encounter Visit Diagnoses Diagnosis Acute liver failure without hepatic coma- Primary documented in this encounter Care Teams Longitudinal Float Operator Relationship Specialty Start Date End Date Hayden Britt MD [address] [place] [address] Dr SMART [address] [place] [address] PCP - General Internal Medicine 11/04/21 documented as of this encounter Additional Source Comments The information contained in this document represents components of the legal health record. It is not the complete legal health record.[facility]
--- OUTSIDE RECORDS SUMMARY | 2025-06-12 10:04 | XMS_ITS | Clinical Summary ---
Author Organization [facility] Address [address] [place] [phone] Phone Care Team Providers Care Finishing Machine Tender Name Role Phone Hayden Britt MD Primary Care Provider Allergies Active Allergy Reactions Criticality Noted Date Comments Apple 08/05/2022 Avocado 08/05/2022 Tree Nuts 08/05/2022 Medications cholecalciferol (VITAMIN D3) 4,000 unit tablet Take 1,000 Units by mouth daily. Active omeprazole (PRILOSEC) 20 MG capsule Take 20 mg by mouth daily. 07/04/2022 Active furosemide (LASIX) 20 MG tablet Take 20 mg by mouth. Active spironolactone (ALDACTONE) 50 MG tablet Take 25 mg by mouth daily. Active therapeutic multivitamin tablet Take 1 tablet by mouth daily. Active phytonadione, vitamin K1, (MEPHYTON) 5 mg tablet Take 5 mg by mouth once. Active meloxicam (MOBIC) 15 MG tablet Take 1 tablet (15 mg total) by mouth daily for 7 days. 7 tablet 06/21/2024 Active Active Problems Problem Noted Date Diagnosed Date Elevated WBC count 10/29/2021 Assessment & Plan (10/29/2021 4:48 PM EST): Schedule for paracentesis with work-up to rule out SBP. No fever chills or clear evidence of infection therefore antibiotics on hold for now. Assessment & Plan (10/29/2021 2:34 AM EST): Afebrile. WBC rising. Does not have any signs or symptoms of active infection. Ascities fluid from ED paracentesis does not appeared to have been sent for culture. Gi consulted and comfortable without starting antibiotics for now. Continue to monitor. Intravascular volume depletion 10/29/2021 Assessment & Plan (10/30/2021 3:33 PM EST): Secondary to third spacing/cirrhosis. -Midodrine started per recommendation of GI. -If hyponatremia does not continue to improve, add albumin daily x3 days per GI recommendations Fever 10/16/2021 Assessment & Plan (10/18/2021 1:09 PM EST): Unclear etiology. S/p SBP r/o. Patient with sinusitis symptoms, likley viral sinusitis. Possible atelectasis, withdrawal. 10/18: Fever curve is downtrending - CTM Hyponatremia 10/16/2021 Assessment & Plan (10/30/2021 3:30 PM EST): Patient was directed to the ED from the GI office due to hyponatremia of noted on labs. (Sodium was noted at 120). Patient seen by GI. hyponatremia is thought to be related to his cirrhosis. He notes the pathophysiology is related to decreased systemic vascular resistance with activation of the renin-angiotensin system with production of inappropriate high levels of ADH. 10/30: Stable, NA 122 -Goal is to correct slowly; patient started on p.o. diuresis with furosemide and spironolactone, as well as and 1 L fluid restriction and salt restriction -Repeat sodium levels daily Assessment & Plan (10/29/2021 1:10 AM EST): likely in the setting of volume overload as evidenced by ascities. -will start BID diuresis furosemide 40 mg IV. -1L fluid restriction Assessment & Plan (10/18/2021 1:10 PM EST): likely in the setting of volume overload as evidenced by ascities. -Continue diuresis Acute maxillary sinusitis 10/14/2021 Assessment & Plan (10/18/2021 1:09 PM EST): Patient reported fever, rhinorrhea, nasal congestion, post nasal drip, cough x 3 days prior to presentation. Serial covid testing negative. Likely viral sinusitis. No focal ttp or double sickening sign concerning for bacterial sinusitis. Patient with resolving symptoms as of 10/14, no tenderness to percussion on face, no indication for sinus imaging at this time. We will continue to monitor and treat symptomatically. Ascites due to alcoholic hepatitis 10/13/2021 Assessment & Plan (10/30/2021 3:29 PM EST): Patient has had recurrent ascites. Status post 3 L of ascites removed in ED, no studies were sent. 10/30: IR is not available on the weekend. ICU consulted for bedside paracentesis for diagnostic purposes to rule out SBP. Assessment & Plan (10/29/2021 1:17 AM EST): Patient has no drank since last admission, will hold off on phenobarb. Assessment & Plan (10/17/2021 11:10 AM EST): Given fever and leukocytosis on admission in addition to abdominal pain he met the clinical criteria for SBP. Patient was initially treated with CTX x 1 dose on 10/13. However, subsequently paracentesis was negative for e/o infection and alternative reason for fever was proposed by patient. He reports he had aprox 3 days of sinusitis symptoms with negative covid testing prior to admission, symptoms are now improving. Empiric therapy was reasonable for this patient who presented with fever, leukocytosis and PMN count less than 250. However after 48 hours acetic fluid, blood, and urine cultures remained negative therefore empiric therapy was discontinued. GI agrees. 10/17: Patient with volume overload, improved with diuresis. -Continue Lasix 40 mg IV twice daily Acute liver failure without hepatic coma 022 Assessment & Plan (10/29/2021 4:45 PM EST): CT abdomen shows hepatomegaly with diffuse heterogenous attenuation of the liver DDx hepatitis, infiltrative liver disease, steatohepatitis. Also notes moderate volume ascites and diffuse mesenteric stranding. Hepatitis B core antibody and hepatitis C antibody are nonreactive (hep B surface ab positive). Ceruloplasmin/ammonia/AFP are wnl. Antimitochondral Ab and OSWALD are negative. MELD score 23 on admission GI consulted on last admission- advised most likely diagnosis is alcoholic hepatitis and ascites with alcoholic liver disease. Steroid course for alcoholic hepatitis considered, however in setting of infection (sinusitis) they held off. LFTs remain elevated. Patient has persistent leukocytosis therefore we will hold on steroids. Per GI if no improvement in his LFTs in 1 week consider liver biopsy to rule out autoimmune component. Assessment & Plan (10/29/2021 2:31 AM EST): Per his last admission in early Oct: CT abdomen shows hepatomegaly with diffuse heterogenous attenuation of the liver DDx hepatitis, infiltrative liver disease, steatohepatitis. Also notes moderate volume ascites and diffuse mesenteric stranding. Hepatitis B core antibody and hepatitis C antibody are nonreactive (hep B surface ab positive). Ceruloplasmin/ammonia/AFP are wnl. Antimitochondral Ab and OSWALD are negative. MELD score 23 on admission GI consulted on last admission- advised most likely diagnosis is alcoholic hepatitis and ascites with alcoholic liver disease. Steroid course for alcoholic hepatitis considered, however in setting of infection (sinusitis) they held off. Assessment & Plan (10/18/2021 1:07 PM EST): Patient presented with fever, abdominal pain, abdominal distention, and jaundice. Of note, he was not encephalopathic. Labs reveal elevated LFTs and total bili which is new compared to labs from 04/08/2018. CT abdomen shows hepatomegaly with diffuse heterogenous attenuation of the liver DDx hepatitis, infiltrative liver disease, steatohepatitis. Also notes moderate volume ascites and diffuse mesenteric stranding. Paracentesis on admission does not suggest SBP, negative ascites fluid culture to date. INR is increased to 1.5. Hepatitis B core antibody and hepatitis C antibody are nonreactive (hep B surface ab positive). Ceruloplasmin/ammonia/AFP are wnl. Antimitochondral Ab and OSWALD are negative. MELD score 23 on admission GI consulted, advised most likely diagnosis is alcoholic hepatitis and ascites with alcoholic liver disease. Steroid course for alcoholic hepatitis considered, however in setting of infection (sinusitis) will defer. [ ] iron studies with elevated Tsat to 79% and elevated ferritin, which could represent hemochromatosis although ferritin unreliable in the setting of inflammation/infection. Should be repeated outpatient. [ ] elevated IgA which could suggest celiacs disease, however biopsy needed for diagnosis [ ] tissue IgA in process [ ] smooth muscle antibody in process [ ] hep A antibody non reactive, needs vaccination 10/18: Given persistent uptrending bilirubin with direct bilirubin predominance, and persistently elevated alk phos, I wonder about persistent obstructive process. I have asked GI to weigh in on additional imaging. Of note, gallbladder did have some distention on initial CT imaging-however no biliary ductal dilation at that time. Alcohol abuse 10/12/2021 Assessment & Plan (10/29/2021 4:49 PM EST): Patient reports no alcohol use since his last admission. No evidence of alcohol withdrawal. -Continue to monitor Assessment & Plan (10/18/2021 1:10 PM EST): The patient is at high risk for withdrawal. He reports that he went through detox previously, and was sober for 2 years. He denies any history of DTs or seizures but notes that he has not stopped drinking for the past 2-1/2 years. Patient reports 10-15 whiskeys each night. Last drink was at 11:30 AM on 10/12/2021. Alcohol level on admission was 288 Plan -Status post phenobarbital taper -Continue thiamine 200 mg twice daily, folic acid 1 mg daily, and multivitamin daily. -patient declined SW consult. - Counseled patient on medication to aid in abstinence, patient declined at this time, will discuss further with PCP. Acute alcoholic hepatitis 10/12/2021 Assessment & Plan (10/29/2021 4:47 PM EST): Plan as above Assessment & Plan (10/29/2021 1:14 AM EST): LFTs elevated, but stable. Recent paracentesis performed in ED last evening. Consult GI in the morning. Assessment & Plan (10/16/2021 12:37 PM EST): His current MELD-Na score is 23 on admission, with 7-19/6% 90 day mortality. His Maddrey DIF is 41 -On Protonix 40 mg orally daily -Follow with GI. Resolved Problems Problem Noted Date Diagnosed Date Resolved Date Refeeding syndrome 10/13/2021 Assessment & Plan (10/29/2021 1:18 AM EST): Patient with hypokalemia, hypomagnesemia, hypophosphatemia, low albumin in the setting of poor p.o. intake and heavy alcoholism -Replete electrolytes twice daily -Nutrition consult Assessment & Plan (10/16/2021 12:41 PM EST): Patient with hypokalemia, hypomagnesemia, hypophosphatemia, low albumin in the setting of poor p.o. intake and heavy alcoholism -Replete electrolytes twice daily -Nutrition consult Encounters Date Type Department Care Team Description 04/29/2025 Transcribe Orders Virtual Department [address] [place] [address] Fabrice Mcduffie MD Alcoholic cirrhosis, unspecified whether ascites present (Primary Dx) from Last 3 Months Immunizations Immunization Administration Dates Next Due COVID-19 (Pre-07/03) Pfizer Vaccine, mRNA, PF 01/12/2021,12/21/2020 Influenza Quadrivalent Prese rvative Free IM 10/18/2021(Deferred: Patient Refused) Family History Medical History Relation Comments Cancer Mother pt unsure of typ e. States it involved gallbladder Relation Status Comments Mother Social History Tobacco Use Types Packs/Day Years Used Date Smoking Tobacco: Every Day Cigarettes 0.3 20 Smokeless Tobacco: Never Tobacco Cessation:Ready to Q uit: Not Asked; Counseling Given: Not Answered Alcohol Use Standard Drinks/Week Comments Not Currently [...] Orientation Straight 11/10/2017 10 :27 AM EST Last Filed Vital Signs Vital Sign Reading Time Taken Comments Blood Pressure 117/70 07/26/2024 1:12 PM EST Pulse 59 07/26/2024 1:12 PM EST Temperature 36.7 C (98.1 F) 07/26/2024 1:00 PM EST Respiratory Rate 14 07/26/2024 1:12 PM EST Oxygen Saturation 97% 07/26/2024 1:12 PM EST Inhaled Oxygen Concentration - - Weight 79.4 kg (175 lb) 07/23/2024 10:46 AM EST Height 180.3 cm (5' 11 ) 11/13/2023 1:24 PM EST Body Mass Index 24.41 11/13/2023 1:24 PM EST Plan of Treatment Upcoming Encounters Date Type Department Care Team (Late st Contact Info) Description 06/25/2025 8:15 AM EDT Appointment [address] [address] Fabrice Mcduffie MD [address] [place] [phone] [email or web address] Health Maintenance Due Date Last Done Comments Adult Td,Tdap Booster 1983 DEPRESSION SCREENING 1995 HEPATITIS A VACCINES (1 of 2 - Risk 2-dose series) 2002 PNEUMOCOCCAL VACCINES (0-49 years) (1 of 2 - PCV) 2002 INFLUENZA VACCINE (#1) 2025 COVID-19 VACCINE (3 - 2024- season) 2025 01/12/2021, 12/21/2020 SMOKING Hx and SMOKELESS TOBACCO SCREENING 07/26/2025 07/26/2024 POTASSIUM LEVEL 09/17/2025 09/17/2024, 10/12, 05/26/2023, Additional history exists LIPID PANEL 08/15/2027 08/15/2022 HEPATITIS C SCREENING Completed 08/15/2022, 022 HIV ONE-TIME SCREENING (18-65 YEARS) Completed 08/15/2022 HIB VACCINES Aged Out No longer eligi ble based on patient's age to complete this topic MENINGOCOCCAL VACCINES (ACWY) Aged Out No longer eligible based on patient's age to complete this topic MENINGOCOCCAL VACCINES (B) Aged Out N o longer eligible based on patient's age to complete this topic Medical Devices Implanted Type Area Solar Sales Rep Device Identifier Shelf Expiration Date Model / Serial / Lot Left Ankle Plate And Screws Procedures Procedure Name Priority Date/Time Associated Diagnosis Comments COMPREHENSIVE METABOLIC PANEL Routine 09/17/2024 9:49 AM EST Alcoholic cirrhosis of liver without ascites LIPID PANEL Routine 08/15/2022 9:57 AM EST Alcoholic cirrhosis Pre-transplant evaluation for liver transplant HEPATITIS C ANTIBODY, QUALITATIVE Routine 08/15/2022 9:57 AM EST Alcoholic cirrhosis Pre-transplant evaluation for liver transplant from Last 3 Months or Most Recently Relevant to Health Maintenance Results * (ABNORMAL) Comprehensive metabolic panel (09/17/2024 9:49 AM EST) SODIUM 141 133 - 146 mmol/L [facility] POTASSIUM 3.7 3.3 - 5.1 mmol/L [facility] CHLORIDE 107 96 - 108 mmol/L [facility] CO2 27 21 - 35 mmol/L [facility] BUN 9 6 - 19 mg/dL [facility] CREATININE 0.50 0.5 - 1.5 mg/dL [facility] GLUCOSE 69(L) 70 - 99 mg/dL [facility] ALBUMIN 3.9 3.9 - 4.8 g/dL [facility] TOTAL PROTEIN 6.7 6.5 - 8.0 g/dL [facility] CALCIUM 9.3 8.4 - 10.3 mg/dL [facility] ALKALINE PHOSPHATASE 132(H) 39 - 117 U/L [facility] TOTAL BILIRUBIN 1.3(H) 0.0 - 1.2 mg/dL [facility] AST 58(H) 0 - 37 U/L [facility] ALT 52(H) 0 - 40 U/L [facility] GLOBULIN 2.8 1 - 4.8 g/dL [facility] EGFR >120 >59 mL/min/1.7 3m2 [facility] Comment:Estimated glomerular filtration rate calculated using the CKD-EPI refit equation. ANION GAP 11 10 - 20 mmol/L [facility] Blood 09/17/2024 9:49 AM EST 09/17/2024 9:52 AM EST us Brenda Aguiar HOME CARE AIDE LAB BLOOD ORDERABLES Gloria l Result [facility] [address] [place] [address] * Hepatitis C antibody, qualitative (08/15/2022 9:57 AM EST) HCV ANTIBODY Negative Negative [facility] Comment:Antibodies to HCV no t detected. Does not exclude the possibility of exposure to HCV. 08/15/2022 9:57 AM EST 08/15/2022 12:24 PM EST Briana Allen [facility] LAB BLOOD ORDERABLES Final Result [facility] [address] [place] [address] * (ABNORMAL) Lipid panel (08/15/2022 9:57 AM EST) HDL 68 35 - 100 mg/dL [facility] CHOLESTEROL 309(H) <200 mg/dL [facility] TRIGLYCERIDES 113 40 - 150 mg/dL [facility] LDL 218(H) 50 - 129 mg/dL [facility] CARDIAC RISK RATIO 4.5 0.0 - 5.0 [facility] NON-HDL CHOLESTEROL 241 mg/dL [facility] Comment:NCEP ATP III guideli lashon suggest a non-HDL cholesterol goal 30 mg/dl higher than the patient-specific LDL goal. 08/15/2022 9:57 AM EST 08/15/2022 12:23 PM EST us Briana Croft Tiffany [facility] BLOOD ORDERABLES Final Result [address] [id number] from Last 3 Months or Most Recently Relevant to Health Maintenance Insurance [address] [address] [place] [address] [place] [address] [place] [address] [place] [address] [place] [address] [employer] Advance Directives For more information, please contact: [phone] (9AM - 5PM Marti/[facility], Monday-Monday) * Full Code (Latest Code Status on File) Date Activated Date Inactivated Comments 10/29/2021 1:17 AM Question Answer Comments Code Status Confirmed With: Patient * Full Code Date Activated Date Inactivated Comments 10/12/2021 10:15 PM 10/29/2021 1:17 AM Question Answer Comments Code Status Confirmed With: Patient Care Teams Finishing Machine Tender Relationship Specialty Start Date End Date Hayden Britt MD [address] [place] [address] [place] [address] PCP - General Internal Medicine 11/04/21 Additional Source Comments The information contained in this document represents components of the legal health record. It is not the complete legal health record.[facility]
--- OUTSIDE RECORDS SUMMARY | 2025-06-12 10:04 | XMS_ITS | Encounter Summary ---
Author Organization [facility] Address [address] [place] [phone] Phone Care Team Providers Care Binder Fixer Name Role Phone Hayden Britt MD Primary Care Provider Encounter Details Date Type Department Care Team (Late Contact Info) Description 04/20/2022 Procedure Pass [facility] Endoscopy Admitting Dept Virtual Department [address] [place] [phone] Social History Tobacco Use Types Packs/Day Years [...] Info) Description 06/25/2025 8:15 AM EDT Appointment [facility] [address] [place] [address] Fabrice Mcduffie MD [address] [place] [phone] [email or web address] documented as of this encounter Visit Diagnoses Not on filedocumented in this encounter Care Teams Binder Fixer Relationship Specialty Start Date End Date Hayden Britt MD [address] [place] [address] Dr [place], [place] [address] PCP - General Internal Medicine 11/04/21 documented as of this encounter Additional Source Comments The information contained in this document represents components of the legal health record. It is not the complete legal health record.[facility]
--- OUTSIDE RECORDS SUMMARY | 2025-06-12 10:04 | XMS_ITS | Encounter Summary ---
Author Organization [facility] Address [address] [place] [phone] Phone Care Team Providers Care Ecg Technician Name Role Phone Hadyen Britt MD Primary Care Provider Encounter Details Date Type Department Care Team (Late st Contact Info) Description 10/12/2022 Procedure Pass [address] [address] Social History Tobacco Use Types Packs/Day Years [...] Info) Description 06/25/2025 8:15 AM EDT Appointment [address] [address] Fabrice Mcduffie MD [address] [place] [phone] documented as of this encounter Visit Diagnoses Not on filedocumented in this encounter Care Teams Ecg Technician Relationship Specialty Start Date End Date Hayden Britt MD [address] [place] [address] [place] [address] PCP - General Internal Medicine 11/04/21 documented as of this encounter Additional Source Comments The information contained in this document represents components of the legal health record. It is not the complete legal health record.[facility]
== END 2025-06-12 10:40 | disposition home or self-care (01) ==
LOC: HO.HMCH 09:14
PROVIDERS: PCP Internal Medicine; Visit Provider Internal Medicine
DX: K74.60 Unspecified cirrhosis of liver (principal); K43.9 Ventral hernia without obstruction or gangrene

== ENCOUNTER → 2025-06-12 09:13 | Outpatient (BNVA) | payer OTHER, SELFPAY | PROVIDERS: PCP Internal Medicine; Visit Provider Internal Medicine | DX: K43.9 Ventral hernia without obstruction or gangrene (principal); K74.60 Unspecified cirrhosis of liver | CPT/HCPCS: 99212 ==

== ENCOUNTER → 2025-06-13 10:08 | Outpatient (REF) | payer OTHER, SELFPAY ==
--- NOTE | 2025-06-13 10:12 | ECG_ITS ---
Test Reason : 0 Blood Pressure : */* mmHG Vent. Rate : 59 BPM Atrial Rate : 59 BPM P-R Int : 166 ms QRS Dur : 104 ms QT Int : 434 ms P-R-T Axes : 57 -7 47 degrees QTcB Int : 429 ms Sinus bradycardia Otherwise normal ECG No previous ECGs available Referred By: Joseph Beckett Electronically Signed By: LEYLA THOMAS
--- OUTSIDE RECORDS SUMMARY | 2025-06-13 11:01 | XMS_ITS | Encounter Summary ---
Author Organization [facility] Address [address] [place] [phone] Phone Care Team Providers Care Loading Dock Hand Name Role Phone Pcp, Unknown Primary Care Provider Hayden Chu MD Primary Care Provider Encounter Details Date Type Department Care Team (Late st Contact Info) Description 10/30/2021 Procedure Pass [facility] Cardiovascular [facility] Interventional Radiology [address] [place] [address] Social History Tobacco Use Types Packs/Day Years [...] 11/02/2021 11:26 PM Mannie Syed RN * Jermyn Suicide Severity Rating Scale (Screener/Recent Self-Report) Question [...] Info) Description 06/25/2025 8:15 AM EDT Appointment [facility], Ultrasound - [facility] [address] [place] [address] Fabrice Mcduffie MD [address] [place] [address] [address] [place] [address] [email or web address] documented as of this encounter Visit Diagnoses Not on filedocumented in this encounter Additional Health Concerns Infection Onset Date Last Indicated Resolved Time MRSA Comment:Import to add expiration date of 11/27/2021 per Infection Control as part of historical infection status reconciliation 06/14/2005 06/14/2005 11/28/19 22 1:35 AM EDT documented as of this encounter Care Teams Loading Dock Hand Relationship Specialty Start Date End Date Pcp, Unknown PCP - General 10/22/21 11/03/21 Hayden Britt MD [address] [place] [address] [address] [place] [address] PCP - General Internal Medicine 11/04/21 documented as of this encounter Additional Source Comments The information contained in this document represents components of the legal health record. It is not the complete legal health record.[facility]
--- OUTSIDE RECORDS SUMMARY | 2025-06-13 11:01 | XMS_ITS | Encounter Summary ---
Author Organization [facility] Address [address] [place] [phone] Phone Care Team Providers Care Deputy United [place] Marshal Name Role Phone Hayden Britt MD Primary Care Provider Reason for Referral * MRI/CAT Scan - Closed Specialty Diagnoses / Procedures Referred By Contac t Referred To Contact Radiology Diagnoses Liver lesion Procedures MRI Abdomen CHG MRI, ABDOMEN, COMBO Fabrice Mcduffie MD Phone: tel: fax: [email or web address] Referral ID Status Reason Start Date Expiration Date Visits Re quested Visits Authorized [id number] Closed 10/12/2022 04/10/2023 1 1 Encounter Details Date Type Department Care Team (Latest Contact Info) Description 10/12/2022 Transcribe Orders Virtual Department [address] [place] [address] Fabrice Mcduffie MD [address] [address] Liver lesion (Primary Dx) Social History Tobacco [...] 06/25/2025 8:15 AM EDT Appointment [facility] [address] [place] [address] Fabrice Mcduffie MD [address] [place] [phone] [email or web address] documented as of this encounter Results * [...] liver documented in this encounter Care Teams Deputy United [place] Marshal Relationship Specialty Start Date End Date Hayden Britt MD [address] [place] [address] [place] [address] PCP - General Internal Medicine 11/04/21 documented as of this encounter Additional Source Comments The information contained in this document represents components of the legal health record. It is not the complete legal health record.[facility]
--- OUTSIDE RECORDS SUMMARY | 2025-06-13 11:01 | XMS_ITS | Encounter Summary ---
Author Organization [facility] Address [address] [place] [address] Phone Care Team Providers Care Production Expediter Name Role Phone Unknown, Unknown Primary Care Provider Indio duckworth Pcp, Unknown Primary Care Provider Hayden Chu MD Primary Care Provider Encounter Details Date Type Department Care Team (Late Contact Info) Description 10/13/2021 Procedure Pass [facility] [address] [place] [address] Social History Tobacco Use Types Packs/Day Years [...] Info) Description 06/25/2025 8:15 AM EDT Appointment [facility] 30 [place] [address] Fabrice Mcduffie MD [address] [place] [address] [email or web address] documented as of this encounter Visit Diagnoses Not on filedocumented in this encounter Additional Health Concerns Infection Onset Date Last Indicated Resolved Time MRSA Comment:Import to add expiration date of 11/27/2021 per Infection Control as part of historical infection status reconciliation 06/14/2005 06/14/2005 11/28/19 22 1:35 AM EDT documented as of this encounter Care Teams Production Expediter Relationship Specialty Start Date End Date Unknown, Unknown, MD PCP - General 11/10/17 10/21/21 Pcp, Unknown PCP - General 10/22/21 11/03/21 Hayden Britt MD [address] [place] [address] Dr Goncalves, ARIAN [address] PCP - General Internal Medicine 11/04/21 documented as of this encounter Additional Source Comments The information contained in this document represents components of the legal health record. It is not the complete legal health record.[facility]
--- OUTSIDE RECORDS SUMMARY | 2025-06-13 11:01 | XMS_ITS | Encounter Summary ---
Author Organization [facility] Address [address] [place] [address] Phone Care Team Providers Care Sample Cutter Name Role Phone Hayden Britt MD Primary Care Provider Encounter Details Date Type Department Care Team (Latest Contact Info) Description 03/08/2022 Transcribe Orders Virtual Department [address] [place] [address] Fabrice Mcduffie MD [address] [place] [address] [email or web address] Alcoholic cirrhosis, unspecified whether [...] Info) Description 06/25/2025 8:15 AM EDT Appointment [facility] 30 [place] [address] Fabrice Mcduffie MD [address] [place] [address] [email or web address] documented as of this encounter Results * [...] present documented in this encounter Care Teams Sample Cutter Relationship Specialty Start Date End Date Hayden Britt MD [address] [place] [address] [place] [address] PCP - General Internal Medicine 11/04/21 documented as of this encounter Additional Source Comments The information contained in this document represents components of the legal health record. It is not the complete legal health record.[facility]
--- OUTSIDE RECORDS SUMMARY | 2025-06-13 11:01 | XMS_ITS | Encounter Summary ---
Author Organization [facility] Address [address] [place] [address] Phone Care Team Providers Care Coil Assembler Name Role Phone Unknown, Unknown Primary Care Provider Indio duckworth Pcp, Unknown Primary Care Provider Hayden Chu MD Primary Care Provider Encounter Details Date Type Department Care Team (Late Contact Info) Description 10/13/2021 Procedure Pass [facility]ovascular [facility] Interventional [facility]iology 30 [place] [address] Social History Tobacco Use Types Packs/Day Years [...] Info) Description 06/25/2025 8:15 AM EDT Appointment [facility] 30 [place] [address] Fabrice Mcduffie MD [address] [place] [address] [email or web address] documented as of this encounter Visit Diagnoses Not on filedocumented in this encounter Additional Health Concerns Infection Onset Date Last Indicated Resolved Time MRSA Comment:Import to add expiration date of 11/27/2021 per Infection Control as part of historical infection status reconciliation 06/14/2005 06/14/2005 11/28/19 22 1:35 AM EDT documented as of this encounter Care Teams Coil Assembler Relationship Specialty Start Date End Date Unknown, Unknown, MD PCP - General 11/10/17 10/21/21 Pcp, Unknown PCP - General 10/22/21 11/03/21 Hayden Britt MD [address] [place] [address] Dr Goncalves, ARIAN [address] PCP - General Internal Medicine 11/04/21 documented as of this encounter Additional Source Comments The information contained in this document represents components of the legal health record. It is not the complete legal health record.[facility]
--- OUTSIDE RECORDS SUMMARY | 2025-06-13 11:01 | XMS_ITS | Encounter Summary ---
Author Organization [facility] Address [address] [place] [address] Phone Care Team Providers Care Senior Controls Technician Name Role Phone Unknown, Unknown Primary Care Provider Indio duckworth Pcp, Unknown Primary Care Provider Hayden Chu MD Primary Care Provider Encounter Details Date Type Department Care Team (Late st Contact Info) Description 10/12/2021 Procedure Pass [facility], Ct Scan - [facility] 30 [place] [address] Social History Tobacco Use Types Packs/Day Years [...] 10/12/2021 11:00 PM Abel Pike RN * [place] Suicide Severity Rating Scale (Screener/Recent Self-Report) Question [...] Info) Description 06/25/2025 8:15 AM EDT Appointment [facility] [address] [place] [address] Fabrice Mcduffie MD [address] [place] [address] [email or web address] documented as of this encounter Visit Diagnoses Not on filedocumented in this encounter Additional Health Concerns Infection Onset Date Last Indicated Resolved Time MRSA Comment:Import to add expiration date of 11/27/2021 per Infection Control as part of historical infection status reconciliation 06/14/2005 06/14/2005 11/28/19 22 1:35 AM EDT documented as of this encounter Care Teams Senior Controls Technician Relationship Specialty Start Date End Date Unknown, Unknown, MD PCP - General 11/10/17 10/21/21 Pcp, Unknown PCP - General 10/22/21 11/03/21 Hayden Britt MD [address] [place] [address] PCP - General Internal Medicine 11/04/21 documented as of this encounter Additional Source Comments The information contained in this document represents components of the legal health record. It is not the complete legal health record.[facility]
--- OUTSIDE RECORDS SUMMARY | 2025-06-13 11:01 | XMS_ITS | Encounter Summary ---
Author Organization [facility] Address [address] [place] [address] Phone Care Team Providers Care Shirt Folding Machine Operator Name Role Phone Hayden Britt MD Primary Care Provider Encounter Details Date Type Department Care Team (Late Contact Info) Description 04/20/2022 Procedure Pass [facility] Endoscopy Admitting Dept Virtual Department [address] [place] [address] Social History Tobacco Use Types Packs/Day Years [...] Info) Description 06/25/2025 8:15 AM EDT Appointment [facility] 30 [place] [address] Fabrice Mcduffie MD [address] [place] [address] [email or web address] documented as of this encounter Visit Diagnoses Not on filedocumented in this encounter Care Teams Shirt Folding Machine Operator Relationship Specialty Start Date End Date Hayden Britt MD [address] [place] [address] Dr [place], ARIAN [address] PCP - General Internal Medicine 11/04/21 documented as of this encounter Additional Source Comments The information contained in this document represents components of the legal health record. It is not the complete legal health record.[facility]
--- OUTSIDE RECORDS SUMMARY | 2025-06-13 11:01 | XMS_ITS | Clinical Summary ---
Author Organization [facility] Address [address] [place] [address] Phone Care Team Providers Care Port Captain Name Role Phone Hayden Britt MD Primary [...] Description 04/29/2025 Transcribe Orders Virtual Department 30 [place] [address] Fabrice Mcduffie MD Alcoholic cirrhosis, unspecified whether [...] Info) Description 06/25/2025 8:15 AM EDT Appointment [address] [address] Fabrice Mcduffie MD [address] [place] [address] [email or web address] Health Maintenance Due Date Last Done Comments [...] this topic Medical Devices Implanted Type Area Binding Folder Machine Device Identifier Shelf Expiration Date Model / [...] EST) SODIUM 141 133 - 146 mmol/L [facility] POTASSIUM 3.7 3.3 - 5.1 mmol/L [facility] CHLORIDE 107 96 - 108 mmol/L [facility] CO2 27 21 - 35 mmol/L [facility] BUN 9 6 - 19 mg/dL [facility] CREATININE 0.50 0.5 - 1.5 mg/dL [facility] GLUCOSE 69(L) 70 - 99 mg/dL [facility] ALBUMIN 3.9 3.9 - 4.8 g/dL [facility] TOTAL PROTEIN 6.7 6.5 - 8.0 g/dL [facility] CALCIUM 9.3 8.4 - 10.3 mg/dL [facility] ALKALINE PHOSPHATASE 132(H) 39 - 117 U/L [facility] TOTAL BILIRUBIN 1.3(H) 0.0 - 1.2 mg/dL [facility] AST 58(H) 0 - 37 U/L [facility] ALT 52(H) 0 - 40 U/L [facility] GLOBULIN 2.8 1 - 4.8 g/dL [facility] EGFR >120 >59 mL/min/1.7 3m2 [facility] Comment:Estimated glomerular filtration rate calculated using the CKD-EPI refit equation. ANION GAP 11 10 - 20 mmol/L [facility] Blood 09/17/2024 9:49 AM EST 09/17/2024 9:52 AM EST us Brenda Aguiar INSPECTOR WATCH ASSEMBLY LAB BLOOD ORDERABLES Gloria l Result [facility] [address] [place] [address] * Hepatitis C antibody, qualitative (08/15/2022 9:57 AM EST) HCV ANTIBODY Negative Negative [facility] Comment:Antibodies to HCV no t detected. Does not exclude the possibility of exposure to HCV. 08/15/2022 9:57 AM EST 08/15/2022 12:24 PM EST Briana Allen CORPORATE MEETING PLANNER LAB BLOOD ORDERABLES Final Result [facility] [address] [place] [address] * (ABNORMAL) Lipid panel (08/15/2022 9:57 AM EST) HDL 68 35 - 100 mg/dL [facility] CHOLESTEROL 309(H) <200 mg/dL [facility] TRIGLYCERIDES 113 40 - 150 mg/dL [facility] LDL 218(H) 50 - 129 mg/dL [facility] CARDIAC RISK RATIO 4.5 0.0 - 5.0 [facility] NON-HDL CHOLESTEROL 241 mg/dL [facility] Comment:NCEP ATP III guideli lashon suggest a non-HDL cholesterol goal 30 mg/dl higher than the patient-specific LDL goal. 08/15/2022 9:57 AM EST 08/15/2022 12:23 PM EST us Briana Croft Tiffany CORPORATE MEETING PLANNER LAB BLOOD ORDERABLES Final Result [address] [address] from Last 3 Months or Most Recently Relevant to Health Maintenance [place] [address] [place] [address] [place] [address] [place] [address] [place] [address] [place] [address] [place] [address] [place] [address] [place] [address] [place] [address] [place] [address] ACO Advance Directives For more information, please contact: [phone] (9AM - 5PM Marti/[facility], Monday-Monday) * Full Code (Latest Code Status on File) Date Activated Date Inactivated Comments 10/29/2021 1:17 AM Question Answer Comments Code Status Confirmed With: Patient * Full Code Date Activated Date Inactivated Comments 10/12/2021 10:15 PM 10/29/2021 1:17 AM Question Answer Comments Code Status Confirmed With: Patient Care Teams Port Captain Relationship Specialty Start Date End Date Hayden Britt MD [address] [place] [address] [place] [address] PCP - General Internal Medicine 11/04/21 Additional Source Comments The information contained in this document represents components of the legal health record. It is not the complete legal health record.[facility]
--- OUTSIDE RECORDS SUMMARY | 2025-06-13 11:02 | XMS_ITS | Encounter Summary ---
Author Organization [facility] Address [address] [place] [address] Phone Care Team Providers Care Corporate Real Estate Manager Name Role Phone Hayden Britt MD Primary Care Provider Encounter Details Date Type Department Care Team (Late st Contact Info) Description 10/12/2022 Procedure Pass [address] [address] Social History Tobacco Use Types Packs/Day Years [...] Info) Description 06/25/2025 8:15 AM EDT Appointment [address] [address] Fabrice Mcduffie MD [address] [place] [address] documented as of this encounter Visit Diagnoses Not on filedocumented in this encounter Care Teams Corporate Real Estate Manager Relationship Specialty Start Date End Date Hayden Britt MD [address] [place] [address] [place] [address] PCP - General Internal Medicine 11/04/21 documented as of this encounter Additional Source Comments The information contained in this document represents components of the legal health record. It is not the complete legal health record.[facility]
--- OUTSIDE RECORDS SUMMARY | 2025-06-13 11:02 | XMS_ITS | Encounter Summary ---
Author Organization [facility] Address [address] [place] [address] Phone Care Team Providers Care Logging Assistant Name Role Phone Hayden Britt MD Primary Care Provider Reason for Referral * MRI/CAT Scan - Closed Specialty Diagnoses / Procedures Referred By Contac t Referred To Contact Radiology Diagnoses Hepatic cirrhosis, unspecified hepatic cirrhosis type, unspecified whether ascites present Procedures CT Abdomen/Pelvis CHG CT SCAN,ABDOMENT AND PELVIS,W CONTRAST Fabrice Mcduffie MD [address] [place] [address] Phone: tel: fax: [email or web address] Referral ID Status Reason Start Date Expiration Date Visits Re quested Visits Authorized [id number] Closed 10/29/2023 04/26/2024 1 1 Encounter Details Date Type Department Care Team (Latest Contact Info) Description 10/31/2023 Transcribe Orders Virtual Department 30 [place] [address] Fabrice Mcduffie MD [address] [address] [email or web address] Hepatic cirrhosis, unspecified hepatic cirrhosis type, unspecified [...] Info) Description 06/25/2025 8:15 AM EDT Appointment [address] [address] Fabrice Mcduffie MD [address] [place] [address] [email or web address] documented as of this encounter Results * [...] present documented in this encounter Care Teams Logging Assistant Relationship Specialty Start Date End Date Hayden Britt MD [address] [place] [address] [place] [address] PCP - General Internal Medicine 11/04/21 documented as of this encounter Additional Source Comments The information contained in this document represents components of the legal health record. It is not the complete legal health record.[facility]
--- OUTSIDE RECORDS SUMMARY | 2025-06-13 11:02 | XMS_ITS | Encounter Summary ---
Author Organization [facility] Address [address] [place] [address] Phone Care Team Providers Care Toy Department Manager Name Role Phone Hayden Britt MD Primary Care Provider Encounter Details Date Type Department Care Team (Late st Contact Info) Description 10/27/2023 Procedure Pass [facility], [address] [address] Social History Tobacco Use Types Packs/Day Years [...] Info) Description 06/25/2025 8:15 AM EDT Appointment [facility], Ultrasound - [facility] 30 [place] [address] Fabrice Mcduffie MD [address] [place] [address] [email or web address] documented as of this encounter Visit Diagnoses Not on filedocumented in this encounter Care Teams Toy Department Manager Relationship Specialty Start Date End Date Hayden Britt MD [address] [place] [address] [address] [place] [address] PCP - General Internal Medicine 11/04/21 documented as of this encounter Additional Source Comments The information contained in this document represents components of the legal health record. It is not the complete legal health record.[facility]
--- OUTSIDE RECORDS SUMMARY | 2025-06-13 11:02 | XMS_ITS | Encounter Summary ---
Author Organization [facility] Address [address] [place] [address] Phone Care Team Providers Care Education Adviser Name Role Phone Hayden Britt MD Primary Care Provider Encounter Details Date Type Department Care Team (Latest Contact Info) Description 04/29/2025 Transcribe Orders Virtual Department 30 [place] [address] Fabrice Mcduffie MD [address] [place] [address] [email or web address] Alcoholic cirrhosis, unspecified whether ascites present (Primary [...] Info) Description 06/25/2025 8:15 AM EDT Appointment [facility] 30 [place] [address] Fabrice Mcduffie MD [address] [place] [address] [email or web address] Scheduled Orders Name Type Priority Associated Diagnoses Orde r Schedule US Abdomen Limited Imaging Routine Alcoholic cirrhosis, unspecified whether ascites present Expected: 06/25/2025, Expires: 04/29/2026 documented as of this encounter Visit Diagnoses Diagnosis Alcoholic cirrhosis, unspecified whether ascites present- Primary documented in this encounter Care Teams Education Adviser Relationship Specialty Start Date End Date Hayden Britt MD [address] [place] [address] 303 [place] [address] PCP - General Internal Medicine 11/04/21 documented as of this encounter Additional Source Comments The information contained in this document represents components of the legal health record. It is not the complete legal health record.[facility]
--- OUTSIDE RECORDS SUMMARY | 2025-06-13 11:02 | XMS_ITS | Encounter Summary ---
Author Organization [facility] Address [address] [place] [address] Phone Care Team Providers Care Audograph Operator Name Role Phone Hayden Britt MD Primary Care Provider Encounter Details Date Type Department Care Team (Late st Contact Info) Description 07/26/2024 Procedure Pass [facility] Endoscopy Admitting Dept Virtual Department 30 [place] [address] Social History Tobacco Use Types Packs/Day Years [...] Description 06/25/2025 8:15 AM EDT Appointment [facility], Ultrasound - [facility] 30 [place] [address] Fabrice Mcduffie MD [address] [place] [address] 2 [place] [address] [email or web address] documented as of this encounter Visit Diagnoses Not on filedocumented in this encounter Care Teams Audograph Operator Relationship Specialty Start Date End Date Hayden Britt MD [address] [place] [address] 303 [place] [address] PCP - General Internal Medicine 11/04/21 documented as of this encounter Additional Source Comments The information contained in this document represents components of the legal health record. It is not the complete legal health record.[facility]
--- OUTSIDE RECORDS SUMMARY | 2025-06-13 11:02 | XMS_ITS | Encounter Summary ---
Author Organization [facility] Address [address] [place] [address] Phone Care Team Providers Care Pipe Bowl Paint Trimmer Name Role Phone Hayden Britt MD Primary Care Provider Encounter Details Date Type Department Care Team (Latest Contact Info) Description 03/25/2024 Transcribe Orders Virtual Department 30 [place] [address] Fabrice Mcduffie MD [address] [place] [address] [email or web address] Alcoholic cirrhosis, unspecified whether ascites present (Primary [...] Info) Description 06/25/2025 8:15 AM EDT Appointment [facility], Ultrasound - [facility] [address] [place] [address] Fabrice Mcduffie MD [address] [place] [address] [email or web address] documented as of this encounter Results * [...] present documented in this encounter Care Teams Pipe Bowl Paint Trimmer Relationship Specialty Start Date End Date Hayden Britt MD [address] [place] [address] [place] [address] PCP - General Internal Medicine 11/04/21 documented as of this encounter Additional Source Comments The information contained in this document represents components of the legal health record. It is not the complete legal health record.[facility]
--- OUTSIDE RECORDS SUMMARY | 2025-06-13 11:02 | XMS_ITS | Encounter Summary ---
Author Organization [facility] Address [address] [place] [address] Phone Care Team Providers Care Inspector Wire Products Name Role Phone Hayden Britt MD Primary Care Provider Encounter Details Date Type Department Care Team (Late st Contact Info) Description 03/15/2023 Ancillary Orders Virtual Department 30 [place] [address] Brenda Aguiar NP [address] [place] [address] Alcoholic cirrhosis of liver without ascites Social [...] Description 06/25/2025 8:15 AM EDT Appointment [facility], Ultrasound - [facility] [address] [place] [address] Fabrice Mcduffie MD 10 [facility] 2 [place] [address] [email or web address] documented as of this encounter Results * [...] cholecystitis or bile ductdilation. us Brenda Aguiar SEAMING MACHINE OPERATOR IMG US ABDOMEN Final Res ult documented in this encounter Visit Diagnoses Diagnosis Alcoholic cirrhosis of liver without ascites Alcoholic cirrhosis of liver without ascites documented in this encounter Care Teams Inspector Wire Products Relationship Specialty Start Date End Date Hayden Britt MD [address] [place] [address] [place] [address] PCP - General Internal Medicine 11/04/21 documented as of this encounter Additional Source Comments The information contained in this document represents components of the legal health record. It is not the complete legal health record.[facility]
--- OUTSIDE RECORDS SUMMARY | 2025-06-13 11:02 | XMS_ITS | Encounter Summary ---
Author Organization [facility] Address [address] [place] [address] Phone Care Team Providers Care Conveyor Feeder Name Role Phone Hayden Britt MD Primary Care Provider Encounter Details Date Type Department Care Team (Latest Contact Info) Description 12/14/2021 Transcribe Orders [facility] [address] [address] Brenda Aguiar NP 10 [place] [address] Acute liver failure without hepatic coma (Primary [...] EDT Appointment [facility] 30 [place] [address] Fabrice Mcduffie MD [address] [address] documented as of this encounter Results * (ABNORMAL) PT-INR (12/14/2021 2:36 PM EDT) PT 18.5(H) 10.2 - 12.9 sec [facility] INR 1.6(H) 0.9 - 1.1 [facility] Comment:Therapeutic range fo r oral Vitamin K antagonists: 2.0-3.5 Blood 12/14/2021 2:36 PM EDT 12/14/2021 2:40 PM EDT Brenda Aguiar PRINTED [employer]ARDS [employer]OUTER LAB BLOOD ORDERABLES Gloria l Result Performing Organization Address [facility]/ZIP Co de Phone Number [address] [address] * Magnesium (12/14/2021 2:36 PM EDT) Pathologist [facility] MAGNESIUM 1.6 1.6 - 2.6 mg/dL [facility] Blood 12/14/2021 2:36 PM EDT 12/14/2021 2:40 PM EDT Brenda Aguiar [employer] LAB BLOOD ORDERABLES Gloria l Result Performing Organization Address [facility]/ZIP Co de Phone Number [address] [address] * Folate (12/14/2021 2:36 PM EDT) FOLIC ACID 18.3 4.2 - 19.9 ng/mL [facility] Blood 12/14/2021 2:36 PM EDT 12/14/2021 2:40 PM EDT Brenda Aguiar [employer] LAB BLOOD ORDERABLES Gloria l Result Performing Organization Address [facility]/ZIP Co de Phone Number [address] [address] * 25-OH vitamin D (12/14/2021 2:36 PM EDT) Pathologist [facility] 25 [place] VIT D (TOTAL) 39 30 - 60 ng/mL [facility] Blood 12/14/2021 2:36 PM EDT 12/14/2021 2:40 PM EDT Brenda Aguiar [employer] LAB BLOOD ORDERABLES Gloria l Result [address] [address] * (ABNORMAL) C-Reactive Protein (12/14/2021 2:36 PM EDT) [facility] C REACTIVE PROTEIN 13.2(H) 0.0 - 4.0 mg/L [facility] Blood 12/14/2021 2:36 PM EDT 12/14/2021 2:40 PM EDT Brenda Aguiar [employer] LAB BLOOD ORDERABLES Gloria l Result Performing Organization Address City/[facility]/ZIP Co de Phone Number [address] [address] * (ABNORMAL) Comprehensive metabolic panel (12/14/2021 2:36 PM EDT) Pathologist [facility] SODIUM 129(L) 133 - 146 mmol/L [facility] POTASSIUM 4.4 3.3 - 5.1 mmol/L [facility] CHLORIDE 95(L) 96 - 108 mmol/L [facility] CO2 25 21 - 35 mmol/L [facility] BUN 7 6 - 19 mg/dL [facility] CREATININE 0.40(L) 0.5 - 1.5 mg/dL [facility] GLUCOSE 88 70 - 99 mg/dL [facility] ALBUMIN 3.3(L) 3.9 - 4.8 g/dL [facility] TOTAL PROTEIN 8.0 6.5 - 8.0 g/dL [facility] CALCIUM 9.4 8.4 - 10.3 mg/dL [facility] ALKALINE PHOSPHATASE 147(H) 39 - 117 U/L [facility] TOTAL BILIRUBIN 3.3(H) 0.0 - 1.2 mg/dL [facility] AST 107(H) 0 - 37 U/L [facility] ALT 51(H) 0 - 40 U/L [facility] GLOBULIN 4.7 1 - 4.8 g/dL [facility] EGFR >120 >59 mL/min/1.7 3m2 [facility] Comment:Estimated glomerular filtration rate calculated using the CKD-EPI refit equation. ANION GAP 13 10 - 20 mmol/L [facility] Blood 12/14/2021 2:36 PM EDT 12/14/2021 2:40 PM EDT Brenda Aguiar NP LAB BLOOD ORDERABLES Gloria avalos Result Performing Organization Address City/State/[facility] Co de Phone Number [address] [address] * (ABNORMAL) CBC and differential (12/14/2021 2:36 PM EDT) WBC 12.15(H) 4.00 - 11.00 K/uL [facility] RBC 3.36(L) 4.23 - 5.82 M/uL [facility] HGB 12.0(L) 13.4 - 17.5 g/dL [facility] HCT 34.8(L) 37.0 - 51.0 % [facility] PLT 202 140 - 430 K/uL [facility] MCV 103.6(H) 78.0 - 97.0 fL [facility] MCH 35.7(H) 25.0 - 33.0 pg [facility] MCHC 34.5 32.0 - 36.0 g/dL [facility] RDW 13.3 11.0 - 15.0 % [facility] MPV 9.4 8.4 - 12.8 [facility] NRBC 0.00 0 /100 WBCs [facility] ABSOLUTE NRBC 0.00 0 K/uL [facility] DIFF METHOD Auto [facility] NEUTS 71.1 43.0 - 75.0 % [facility] LYMPHS 14.6(L) 18.2 - 47.4 % [facility] MONOS 11.0 4.00 - 11.00 % [facility] EOS 2.0 0.0 - 8.0 % [facility] BASOS 0.7 0.0 - 2.0 % [facility] Granulocytes, immature (%) 0.6 0.0 - 0.9 % [facility] ABSOLUTE NEUTS 8.64(H) 1.80 - 7.70 K/uL [facility] ABSOLUTE LYMPHS 1.77 1.00 - 3.10 K/uL [facility] ABSOLUTE MONOS 1.34(H) 0.20 - 0.80 K/uL [facility] ABSOLUTE EOS 0.24 0.00 - 0.80 K/uL [facility] ABSOLUTE BASOS 0.09 0.00 - 0.09 K/uL [facility] Granulocytes, immature 0.07(H) 0.00 - 0.05 K/uL [facility] Blood 12/14/2021 2:36 PM EDT 12/14/2021 2:40 PM EDT us Brenda Aguiar [employer] LAB BLOOD ORDERABLES Gloria l Result [facility] 30 [place] [address] documented in this encounter Visit Diagnoses Diagnosis Acute liver failure without hepatic coma- Primary documented in this encounter Care Teams Conveyor Feeder Relationship Specialty Start Date End Date Hayden Britt MD [address] [place] [address] Dr SMART [address] [place] [address] PCP - General Internal Medicine 11/04/21 documented as of this encounter Additional Source Comments The information contained in this document represents components of the legal health record. It is not the complete legal health record.[facility]
--- OUTSIDE RECORDS SUMMARY | 2025-06-13 11:02 | XMS_ITS | Encounter Summary ---
Author Organization [facility] Address [address] [place] [address] Phone Care Team Providers Care Circulation Director Name Role Phone Hayden Britt MD Primary Care Provider Encounter Details Date Type Department Care Team (Latest Contact Info) Description 11/21/2023 Transcribe Orders Virtual Department 30 [place] [address] Fabrice Mcduffie MD [address] [place] [phone] [email or web address] Alcoholic cirrhosis of liver without ascites (Primary [...] Info) Description 06/25/2025 8:15 AM EDT Appointment [facility], Ultrasound - [facility] [address] [place] [address] Fabrice Mcduffie MD [address] [address] [email or web address] documented as of this encounter Results * [...] clinician's provided indication for this examination in [facility]: Outside Radiology Order; cirrhosis TECHNIQUE: US Abdominal [...] clinician's provided indication for this examination in [facility]:Outside Radiology Order; cirrhosis TECHNIQUE: US Abdominal limited [...] ascites documented in this encounter Care Teams Circulation Director Relationship Specialty Start Date End Date Hayden Britt MD [address] [place] [address] [place] [address] PCP - General Internal Medicine 11/04/21 documented as of this encounter Additional Source Comments The information contained in this document represents components of the legal health record. It is not the complete legal health record.[facility]
--- OUTSIDE RECORDS SUMMARY | 2025-06-13 11:02 | XMS_ITS | Encounter Summary ---
Author Organization [facility] Address [address] [place] [address] Phone Care Team Providers Care Embossing Unit Operator Name Role Phone Hayden Britt MD Primary Care Provider Encounter Details Date Type Department Care Team (Latest Contact Info) Description 11/28/2022 Transcribe Orders Virtual Department [address] [place] [address] Brenda Aguiar NP [address] [place] [address] Alcoholic cirrhosis of liver without ascites (Primary [...] Info) Description 06/25/2025 8:15 AM EDT Appointment [facility] 30 [place] [address] Fabrice Mcduffie MD [address] [place] [address] [email or web address] documented as of this encounter Visit Diagnoses Diagnosis Alcoholic cirrhosis of liver without ascites- Primary documented in this encounter Care Teams Embossing Unit Operator Relationship Specialty Start Date End Date Hayden Britt MD [address] [place] [address] Dr SMART [address] [place] [address] PCP - General Internal Medicine 11/04/21 documented as of this encounter Additional Source Comments The information contained in this document represents components of the legal health record. It is not the complete legal health record.[facility]
--- OUTSIDE RECORDS SUMMARY | 2025-06-13 11:02 | XMS_ITS | Encounter Summary ---
Author Organization [facility] Address [address] [place] [address] Phone Care Team Providers Care Structural Manager Name Role Phone Haydne Britt MD Primary Care Provider Encounter Details Date Type Department Care Team (Latest Contact Info) Description 12/12/2024 Transcribe Orders Virtual Department 30 [place] [address] Fabrice Mcduffie MD [address] [place] [phone] [email or web address] Alcoholic cirrhosis, unspecified whether ascites present (Primary [...] Info) Description 06/25/2025 8:15 AM EDT Appointment [facility] - [facility] 30 [place] [address] Fabrice Mcduffie MD [address] [place] [address] [email or web address] documented as of this encounter Results * [...] present documented in this encounter Care Teams Structural Manager Relationship Specialty Start Date End Date Hayden Britt MD [address] [place] [address] [place] [address] PCP - General Internal Medicine 11/04/21 documented as of this encounter Additional Source Comments The information contained in this document represents components of the legal health record. It is not the complete legal health record.[facility]
--- OUTSIDE RECORDS SUMMARY | 2025-06-13 11:02 | XMS_ITS | Encounter Summary ---
Author Organization [facility] Address [address] [place] [address] Phone Care Team Providers Care Invasive Physician Name Role Phone Hayden Britt MD Primary Care Provider Encounter Details Date Type Department Care Team (Late st Contact Info) Description 10/31/2023 Procedure Pass [facility], Ct Scan - [address] [address] Social History Tobacco Use Types Packs/Day Years [...] Description 06/25/2025 8:15 AM EDT Appointment [facility], Ultrasound - [facility] 30 [place] [address] Fabrice Mcduffie MD [address] [place] [address] 2 [place] [address] [email or web address] documented as of this encounter Visit Diagnoses Not on filedocumented in this encounter Care Teams Invasive Physician Relationship Specialty Start Date End Date Hayden Britt MD [address] [place] [address] 303 [place] [address] PCP - General Internal Medicine 11/04/21 documented as of this encounter Additional Source Comments The information contained in this document represents components of the legal health record. It is not the complete legal health record.[facility]
--- OUTSIDE RECORDS SUMMARY | 2025-06-13 11:02 | XMS_ITS | Encounter Summary ---
Author Organization [facility] Address [address] [place] [address] Phone Care Team Providers Care C++ Professor Name Role Phone Hayden Britt MD Primary Care Provider Encounter Details Date Type Department Care Team (Latest Contact Info) Description 09/09/2022 Transcribe Orders Virtual Department [address] [place] [address] Fabrice Mcduffie MD [address] [place] [address] [email or web address] Hepatoma (Primary Dx) Social History Tobacco Use [...] Info) Description 06/25/2025 8:15 AM EDT Appointment [address] [address] Fabrice Mcduffie MD [address] [place] [address] [email or web address] documented as of this encounter Results * [...] primary documented in this encounter Care Teams C++ Professor Relationship Specialty Start Date End Date Hayden Britt MD [address] [place] [address] [place] [address] PCP - General Internal Medicine 11/04/21 documented as of this encounter Additional Source Comments The information contained in this document represents components of the legal health record. It is not the complete legal health record.[facility]
--- OUTSIDE RECORDS SUMMARY | 2025-06-13 11:02 | XMS_ITS | Encounter Summary ---
Author Organization [facility] Address [address] [place] [address] Phone Care Team Providers Care Spray I Painter Name Role Phone Hayden Britt MD Primary Care Provider Encounter Details Date Type Department Care Team (Latest Contact Info) Description 09/17/2024 Transcribe Orders [facility] [address] [address] Brenda Aguiar NP 10 [place] [address] Alcoholic cirrhosis of liver without ascites (Primary [...] Info) Description 06/25/2025 8:15 AM EDT Appointment [address] [address] Fabrice Mcduffie MD [address] [place] [phone] [email or web address] Scheduled Orders Name Type Priority Associated Diagnoses Orde r Schedule CBC Lab Routine Alcoholic cirrhosis of liver without ascites Monthly for 10 Occurrences starting 09/17/2024 until 09/17/2025, 1 completed documented as of this encounter Results * (ABNORMAL) PT-INR (09/17/2024 9:49 AM EST) [facility] PT 15.2(H) 10.2 - 12.9 sec [facility] INR 1.4(H) 0.9 - 1.1 [facility] Comment:Therapeutic range fo r oral Vitamin K antagonists: 2.0-3.5 Blood 09/17/2024 9:49 AM EST 09/17/2024 9:52 AM EST us Brenda Aguiar NP LAB BLOOD ORDERABLES Gloria avalos Result [address] [address] * C-Reactive Protein (09/17/2024 9:49 AM EST) C REACTIVE PROTEIN <3.0 0.0 - 4.0 mg/L [facility] Blood 09/17/2024 9:49 AM EST 09/17/2024 9:52 AM EST Brenda Aguiar NP LAB BLOOD ORDERABLES Gloria l Result Performing Organization Address [facility]/State/[facility] Co de Phone Number [facility] 30 [place] [address] * (ABNORMAL) Comprehensive metabolic panel (09/17/2024 9:49 AM EST) [facility] SODIUM 141 133 - 146 mmol/L [facility] POTASSIUM 3.7 3.3 - 5.1 mmol/L [facility] CHLORIDE 107 96 - 108 mmol/L [facility] CO2 27 21 - 35 mmol/L [facility] BUN 9 6 - 19 mg/dL [facility] CREATININE 0.50 0.5 - 1.5 mg/dL [facility] GLUCOSE 69(L) 70 - 99 mg/dL [facility] ALBUMIN 3.9 3.9 - 4.8 g/dL [facility] TOTAL PROTEIN 6.7 6.5 - 8.0 g/dL [facility] CALCIUM 9.3 8.4 - 10.3 mg/dL [facility] ALKALINE PHOSPHATASE 132(H) 39 - 117 U/L [facility] TOTAL BILIRUBIN 1.3(H) 0.0 - 1.2 mg/dL [facility] AST 58(H) 0 - 37 U/L [facility] ALT 52(H) 0 - 40 U/L [facility] GLOBULIN 2.8 1 - 4.8 g/dL [facility] EGFR >120 >59 mL/min/1.7 3m2 [facility] Comment:Estimated glomerular filtration rate calculated using the CKD-EPI refit equation. ANION GAP 11 10 - 20 mmol/L [facility] Blood 09/17/2024 9:49 AM EST 09/17/2024 9:52 AM EST Brenda Aguiar NP LAB BLOOD ORDERABLES Gloria l Result Performing Organization Address City/[facility] Co de Phone Number [address] [address] * (ABNORMAL) CBC (09/17/2024 9:49 AM EST) WBC 4.91 4.00 - 11.00 K/uL [facility] RBC 4.57 4.50 - 5.90 M/uL [facility] HGB 14.7 13.5 - 17.5 g/dL [facility] HCT 42.5 41.0 - 53.0 % [facility] PLT 98(L) 150 - 450 K/uL [facility] Comment:Microscopic estimate : Platelets decreased. MCV 93.0 80.0 - 100.0 fL [facility] MCH 32.2(H) 27.0 - 31.0 pg [facility] MCHC 34.6 32.0 - 36.0 g/dL [facility] RDW 15.2(H) 11.5 - 14.5 % [facility] MPV 10.3 8.4 - 12.0 fL [facility] NRBC 0.00 0.00 /100 WBCs [facility] ABSOLUTE NRBC 0.00 0.00 K/uL [facility] Blood 09/17/2024 9:49 AM EST 09/17/2024 9:52 AM EST Brenda Aguiar CORK PAINTER AND GRADER LAB BLOOD ORDERABLES Gloria l Result Performing Organization Address [facility]/ZIP Co de Phone Number [address] [address] * AFP (non-maternal specimens) (09/17/2024 9:49 AM EST) Pathologist [facility] AFP (NON-MATERNAL) 4.1 <7.9 ng/mL [facility] Comment: Test Methodology Andrae [id number] Patient results determined by assays using different manufacturers or methods may not be comparable. Blood 09/17/2024 9:49 AM EST 09/17/2024 9:52 AM EST Brenda Aguiar CORK PAINTER AND GRADER LAB BLOOD ORDERABLES Gloria l Result [facility] 30 [place], [place] [phone] documented in this encounter Visit Diagnoses Diagnosis Alcoholic cirrhosis of liver without ascites- Primary documented in this encounter Care Teams Spray I Painter Relationship Specialty Start Date End Date Hayden Britt MD [address] [place] [address] Dr SMART [address] [place] [address] PCP - General Internal Medicine 11/04/21 documented as of this encounter Additional Source Comments The information contained in this document represents components of the legal health record. It is not the complete legal health record.[facility]
--- OUTSIDE RECORDS SUMMARY | 2025-06-13 11:02 | XMS_ITS | Encounter Summary ---
Author Organization [facility] Address [address] [place] [address] Phone Care Team Providers Care Buffing Machine Operator Name Role Phone Hayden Britt MD Primary Care Provider Encounter Details Date Type Department Care Team (Late Contact Info) Description 11/26/2021 Procedure Pass [facility] 30 [place] [address] Social History Tobacco Use Types Packs/Day Years [...] Info) Description 06/25/2025 8:15 AM EDT Appointment [facility] 30 [place] [address] Fabrice Mcduffie MD [address] [place] [phone] [email or web address] documented as of this encounter Visit Diagnoses Not on filedocumented in this encounter Additional Health Concerns Infection Onset Date Last Indicated Resolved Time MRSA Comment:Import to add expiration date of 11/27/2021 per Infection Control as part of historical infection status reconciliation 06/14/2005 06/14/2005 11/28/19 1:35 AM EDT documented as of this encounter Care Teams Buffing Machine Operator Relationship Specialty Start Date End Date Hayden Britt MD [address] [place] [address] [place] [address] PCP - General Internal Medicine 11/04/21 documented as of this encounter Additional Source Comments The information contained in this document represents components of the legal health record. It is not the complete legal health record.[facility]
--- OUTSIDE RECORDS SUMMARY | 2025-06-13 11:02 | XMS_ITS | Encounter Summary ---
Author Organization [facility] Address [address] [place] [address] Phone Care Team Providers Care Paper Coating Supervisor Name Role Phone Hayden Britt MD Primary Care Provider Encounter Details Date Type Department Care Team (Latest Contact Info) Description 12/14/2021 Transcribe Orders Virtual Department [address] [place] [address] Brenda Aguiar NP [address] [place] [address] Acute liver failure without hepatic coma (Primary [...] Info) Description 06/25/2025 8:15 AM EDT Appointment [facility] 30 [place] [address] Fabrice Mcduffie MD [address] [address] [email or web address] documented as of this encounter Visit Diagnoses Diagnosis Acute liver failure without hepatic coma- Primary documented in this encounter Care Teams Paper Coating Supervisor Relationship Specialty Start Date End Date Hayden Britt MD [address] [place] [address] [place] [address] PCP - General Internal Medicine 11/04/21 documented as of this encounter Additional Source Comments The information contained in this document represents components of the legal health record. It is not the complete legal health record.[facility]
--- OUTSIDE RECORDS SUMMARY | 2025-06-13 11:02 | XMS_ITS | Encounter Summary ---
Author Organization [facility] Address [address] [place] [phone] Phone Care Team Providers Care Change Director Name Role Phone Hayden Britt MD Primary Care Provider Encounter Details Date Type Department Care Team (Late st Contact Info) Description 12/02/2021 Procedure Pass [facility] 30 [place] [address] Social History Tobacco Use Types Packs/Day Years [...] 8:15 AM EDT Appointment [facility] 30 [place] [address] Fabrice Mcduffie MD [address] [place] [address] [email or web address] documented as of this encounter Visit Diagnoses Not on filedocumented in this encounter Care Teams Change Director Relationship Specialty Start Date End Date Hayden Britt MD [address] [place] [address] [place] [address] PCP - General Internal Medicine 11/04/21 documented as of this encounter Additional Source Comments The information contained in this document represents components of the legal health record. It is not the complete legal health record.[facility]
[2025-06-13 11:27] LABS: Hematocrit 40.5 % (42.0-52.0); Hemoglobin 13.9 g/dl (14.0-18.0); Mean Corpuscular HGB Conc 34.3 g/dl (31.0-36.0); Mean Corpuscular Hemoglobin 30.7 pg (27.0-33.0); Mean Corpuscular Volume 89.4 fL (80.0-98.0); NRBC Abs Auto 0.000 X10*3/uL (0.0-0.012); NRBC Pct Auto 0.0 /100WBC (0.0-0.2); Platelet Count 96 X10*3/uL (160-400); Red Blood Count 4.53 X10*6/uL (4.60-5.80); White Blood Count 4.4 X10*3/uL (4.8-10.8)
[2025-06-13 11:28] LABS: Appearance Urine Clear; Glucose Urine UA Negative (Negative); PH 5.5 (5.0-9.0); Specific Gravity - Urine 1.020 (1.005-1.025)
[2025-06-13 12:07] LABS: Alanine Aminotransferase 49 U/L (0-40); Albumin Level 3.8 g/dL (3.5-5.0); Alkaline Phosphatase 125 U/L (39-117); Anion Gap 9 (12-20); Aspartate Amino Transferase 59 U/L (5-37); Blood Urea Nitrogen 8 mg/dL (9-16); Calcium 8.6 mg/dL (8.4-10.2); Carbon Dioxide 27 mmol/L (22-29); Chloride 109 mmol/L (96-108); Cholesterol 169 mg/dL (<200); Estimated Glomerular Filt Rate > 60; HDL Cholesterol 34 mg/dL (>40); Potassium 3.6 mmol/L (3.3-5.1); Sodium 141 mmol/L (135-145); Total Protein 6.7 g/dL (6.5-8.0); Triglycerides 92 mg/dL (<150)
[2025-06-13 12:16] LABS: Thyroid Stimulating Hormone 1.62 uIU/mL (0.32-4.0)
== END ==
LOC: HO.CARD 10:08
PROVIDERS: PCP Internal Medicine; Visit Provider Internal Medicine
DX: K74.60 Unspecified cirrhosis of liver (principal); K43.9 Ventral hernia without obstruction or gangrene
CPT/HCPCS: 36415; 80048; 80061; 80076; 81003; 84443; 85027; 93005

== ENCOUNTER → 2025-06-13 10:12 | Outpatient (BNV) | payer OTHER, SELFPAY | PROVIDERS: PCP Internal Medicine; Visit Provider Internal Medicine | DX: R00.1 Bradycardia, unspecified (principal) | CPT/HCPCS: 93010 ==

== ENCOUNTER 2025-07-02 14:30 | Outpatient (AMB) | payer OTHER, SELFPAY ==
[2025-07-02 14:35] VITALS: BP 130/72; PULSE 71; TEMP 36.4; O2SAT 99; BMI 28.3
--- NOTE | 2025-07-02 14:35 | MHC.PC.OV ---
Vital Signs 07/02/25 14:35 Height 5 ft 11 in Weight 203 lb 2 oz BMI 28.3 BP 130/72 Blood Pressure Location Rt brachial Position Sitting Pulse 71 Pulse Source Pulse Oximeter Temp 97.5 F Temp Source Temporal Artery Scan Pulse Oximetry (%) 99 Oxygen Delivery Method Room Air Intake Visit Reasons: routine Maintenance [place] Required: No Accompanied by: Self / Same As Patient Allergies apple Allergy (Verified 07/02/25 14:35) Itching avocado Allergy (Verified 07/02/25 14:35) Itching morphine Allergy (Verified 07/02/25 14:35) Unknown tree nut Allergy (Verified 07/02/25 14:35) Itching Medication List - Last Reconciled 07/03/25 by OMID Wallace omeprazole 20 mg PO QAM Tobacco use date assessed: 07/02/25 Dental Screening Dental Screen Date: 07/02/25 Did you have a dental visit in the last 12 months?: Yes Did you have a dental problem in the last 6 months where you did not have access to dental care?: No HPI HPI Comments History of Present Illness Details The patient is a 39-year-old male with alcoholism in remission, liver cirrhosis, GERD and ventral hernia to establish care. He states he wants to make sure he has surgical clearance for a hernia repair. The hernia is located above the umbilicus and causes pain when standing for long periods, coughing, or leaning up. The patient is a animal assistant, and the hernia impacts his ability to work due to pain. He was seen by Dr. Beckett on 06/12 for preop clearance and was sent for labs and EKG. His results were sent to Dr. Avendano the surgeon on 06/17. His labs showed an improving anemia, INR of 1.1 and stable elevation of LFTs. His EKG showed sinus bradycardia at 59 but was otherwise normal. The patient has a history of liver failure, which required frequent paracentesis due to ascites. He was evaluated for a liver transplant and has been followed by [facility]. The patient reports abstaining from alcohol since his hospitalization for liver failure. He underwent an ultrasound three weeks ago as part of his ongoing monitoring. He is taking Omeprazole for GERD with good control of symptoms. Patient was informed and verbally consented to the use of an ambient scribe for clinic note documentation during this visit. [facility] Medical History (Updated 07/03/25 @ 13:10 by OMID Wallace) Asthma Epigastric hernia Esophageal varices Febrile seizures GERD without esophagitis History of MRSA infection Liver cirrhosis Seasonal allergies Sleep apnea Vocal cord polyp Surgical History H/O colonoscopy History of ankle surgery History of esophagogastroduodenoscopy (EGD) Hx of tooth extraction Family History Mother Cancer Father No problems noted. Social History Housing: House Are you a primary career and transition teacher to a significant other at home: No Do you presently have visiting nurse or other home services: No Alcohol intake: former Patient Tobacco Use Status: Current everyday Tobacco user Tobacco use type: Cigarette Cigarette Packs Per Day: 0.25 Cigarettes Per Day: 3 e-Cigarette/Vaping Use: Currently Using Second Hand Smoke Exposure: Yes Substance Use Type: Marijuana service: No Current occupational status: unemployed Cognitive needs: No Hearing needs: No Vision needs: Yes (rx glasses) Questionnaire PHQ-9 Over the last 2 weeks, how often have you been bothered by any of the following problems? 1. Little interest or pleasure in doing things: not at all 2. Feeling down, depressed, or hopeless: not at all 3. Trouble falling or staying asleep, or sleeping too much: not at all 4. Feeling tired or having little energy: not at all 5. Poor appetite or overeating: not at all 6. Feeling bad about yourself - or that you are a failure or have let yourself or your family down: not at all 7. Trouble concentrating on things, such as reading the newspaper or watching television: not at all 8. Moving or speaking so slowly that other people could have noticed. Or the opposite - being so fidgety or restless that you have been moving around a lot more than usual: not at all 9. Thoughts that you would be better off or of hurting yourself in some way: not at all Total score: 0 Depression Screening Interpretation: Negative Depression Screening Done: Yes 99368 - PHQ-9 Billing: Yes Source: Developed by Drs. Brad Brenda Rivas Kurt Kroenke and colleagues, with an educational betzaida from [employer]. Thrive Questionnaire Date Thrive assessed: 07/02/25 I am a: Patient Within the past 12 months, did the food you bought not last and you didn't have the money to get more?: Never true Within the past 12 months, did you worry whether your food would run out before you got money to buy more?: Never true Do you have trouble paying for medicines?: No Do you have trouble getting transportation to medical appointments?: No Do you have trouble paying your heating and electricity bill?: No Do you have trouble taking care of your child, family member or friend?: No Do you have trouble with day-to-day activities such as bathing, preparing meals, shopping, managing finances, etc.?: No Are you currently unemployed and looking for a job?: No Are you interested in more education?: No THRIVE Score: 0 AUDIT C Alcohol Use Questionnaire (AUDIT-C) 1. How often do you have a drink containing alcohol?: Never 3. How often do you have six or more drinks on one occasion?: Never Total Score: 0 FREEDOM-7 AMB Questionnaire FREEDOM-7 Date FREEDOM - 7 assessed: 07/02/25 Feeling nervous, anxious, or on edge: 0 = Not at all Not being able to stop or control worryin = Not at all Worrying too much about different things: 0 = Not at all Trouble relaxin = Not at all Being so restless that it is hard to sit still: 0 = Not at all Becoming easily annoyed or irritable: 0 = Not at all Feeling afraid as if something awful might happen: 0 = Not at all Total FREEDOM-7 score (0-4 normal; 5-9 mild; 10-14 moderate; 15-21 severe): 0 Source: Developed by Drs. Brad Gomez, Toribio Mckenna and colleagues, with an educational betzaida from [employer]. Review of Systems Narrative CONSTITUTIONAL Negative HEAD/NECK Negative EAR/NOSE/MOUTH/THROAT Negative RESPIRATORY Negative CARDIOVASCULAR Negative GASTROINTESTINAL Reports pain associated with hernia when standing, coughing, or leaning up. MUSCULOSKELETAL Denies any other musculoskeletal symptoms NEUROLOGICAL Negative PSYCHIATRIC Negative Physical exam (Primary Care) Vital Signs: Last Vital Signs Temp 97.5 F 07/02/25 14:35 Pulse 71 07/02/25 14:35 BP 130/72 07/02/25 14:35 Pulse Ox 99 07/02/25 14:35 Oxygen Delivery Method Room Air 07/02/25 14:35 BMI result Body Mass Index 28.3 GENERAL Well developed, Well nourished, in no apparent distress HEENT Head-Normocephalic Eyes- PERRLA, EOMI, Conjuctiva clear, lids WNL Ears- Canals clear, TMs WNL Mouth/Throat-No lesions, no erythema, no exudate Neck- Supple, No lymphadenopathy, thyroid WNL RESPIRATORY Normal I:E, Clear to auscultation CARDIOVASCULAR Regular, rate and rhythm, No murmurs or rubs GASTROINTESTINAL Soft, nontender, normal bowel sounds, no masses MUSCULOSKELETAL Back- nontender Joints- no swelling or deformity NEUROLOGICAL Gait normal PSYCHIATRIC Oriented to person, place and time Mood and affect WNL Appearance WNL Speech WNL Thought processes WNL Tobacco/Smoking Status: Tobacco use Status Tobacco use date assessed 07/02/25 07/02/25 14:36 Patient Tobacco Use Status Current everyday Tobacco 07/02/25 14:36 Tobacco use type Cigarette 07/02/25 14:36 e-Cigarette/Vaping Use Currently Using 07/02/25 14:36 PHQ-9: PHQ-9 Score PHQ-9: Total score 0 07/03/25 09:15 Depression Screening Interpretation: Negative Thrive Assessment: Date of Thrive Assessment Date Thrive assessed 07/02/25 07/02/25 14:36 Coding Level of Care Code Established Pt Est Pt Level 4 (92704) Patient Type Established Diagnoses Ventral hernia K43.9 Liver cirrhosis K74.60 GERD without esophagitis K21.9 Additional Codes PHQ-9 - 53609 - PHQ-9 Billing: Yes ([id number]) Time Spent (min) 30 Comment Time was spent on chart review, medication reconciliation, H&P, patient education Assessment & Plan Assessment & Plan (1) Ventral hernia: Code(s): K43.9 - Ventral hernia without obstruction or gangrene Category: Surgical Plan: Patient is scheduled on 07/[address] Lopez for a hernia repair. PreOp exam was done on 06/12/25. No change in medication is needed. (2) Liver cirrhosis: Code(s): K74.60 - Unspecified cirrhosis of liver Category: Medical Plan: The patient has a history of liver failure, previously requiring frequent paracentesis due to ascites. He was evaluated for a liver transplant and has abstained from alcohol since his hospitalization. The patient's liver function tests are elevated. He is under regular follow-up with [facility] and had a recent ultrasound for monitoring. Patient to follow up in 3 months or sooner if symptoms persist or worsen. (3) GERD without esophagitis: Code(s): K21.9 - Gastro-esophageal reflux disease without esophagitis Category: Medical Plan: Controlled with Omeprazole. Patient will continue current medications. Will monitor. Patient will follow up in 6 months. Plan I discussed with the patient the surgical clearance for his upcoming hernia repair. We reviewed his history of liver failure and the implications for surgery. I advised him to continue abstaining from alcohol and to follow up with his senior electrical controls engineer as needed. Patient Instructions: - Continue to abstain from alcohol to prevent further liver damage. - Follow up with [facility] for ongoing liver monitoring. - Attend scheduled hernia repair surgery next Monday after obtaining clearance.
--- OUTSIDE RECORDS SUMMARY | 2025-07-02 20:42 | XMS_ITS | Encounter Summary ---
Author Organization [facility] Address [address] [place] [phone] Phone Care Team Providers Care Property Accountant Name Role Phone Hayden Britt MD Primary Care Provider Encounter Details Date Type Department Care Team (Latest Contact Info) Description 09/17/2024 Transcribe Orders [facility] [address] [address] Brenda Aguiar NP 10 [place] [address] Alcoholic cirrhosis of liver without ascites (Primary [...] as of this encounter Plan of Treatment Scheduled Orders Name Type Priority Associated Diagnoses Orde r Schedule CBC Lab Routine Alcoholic cirrhosis of liver without ascites Monthly for 10 Occurrences starting 09/17/2024 until 09/17/2025, 1 completed documented as of this encounter Results * (ABNORMAL) PT-INR (09/17/2024 9:49 AM EST) PT 15.2(H) 10.2 - 12.9 sec [facility] INR 1.4(H) 0.9 - 1.1 [facility] Comment:Therapeutic range fo r oral Vitamin K antagonists: 2.0-3.5 Blood 09/17/2024 9:49 AM EST 09/17/2024 9:52 AM EST us Brenda Aguiar MANAGER [facility] LAB BLOOD ORDERABLES Gloria l Result Performing Organization Address [facility]/ZIP Co de Phone Number [address] [address] * C-Reactive Protein (09/17/2024 9:49 AM EST) C REACTIVE PROTEIN <3.0 0.0 - 4.0 mg/L [facility] Blood 09/17/2024 9:49 AM EST 09/17/2024 9:52 AM EST Brenda Aguiar NP LAB BLOOD ORDERABLES Gloria l Result [address] [place] [address] * (ABNORMAL) Comprehensive metabolic panel (09/17/2024 9:49 AM EST) SODIUM 141 133 - 146 mmol/L [facility] POTASSIUM 3.7 3.3 - 5.1 mmol/L [facility] CHLORIDE 107 96 - 108 mmol/L [facility] CO2 27 21 - 35 mmol/L [facility] BUN 9 6 - 19 mg/dL [facility] CREATININE 0.50 0.5 - 1.5 mg/dL [facility] GLUCOSE 69(L) 70 - 99 mg/dL [facility] ALBUMIN 3.9 3.9 - 4.8 g/dL [facility] TOTAL PROTEIN 6.7 6.5 - 8.0 g/dL [facility] CALCIUM 9.3 8.4 - 10.3 mg/dL [facility] ALKALINE PHOSPHATASE 132(H) 39 - 117 U/L [facility] TOTAL BILIRUBIN 1.3(H) 0.0 - 1.2 mg/dL [facility] AST 58(H) 0 - 37 U/L [facility] ALT 52(H) 0 - 40 U/L [facility] GLOBULIN 2.8 1 - 4.8 g/dL [facility] EGFR >120 >59 mL/min/1.7 3m2 [facility] Comment:Estimated glomerular filtration rate calculated using the CKD-EPI refit equation. ANION GAP 11 10 - 20 mmol/L [facility] Blood 09/17/2024 9:49 AM EST 09/17/2024 9:52 AM EST us Brenda Aguiar NP LAB BLOOD ORDERABLES Gloria l Result [address] [address] * (ABNORMAL) CBC (09/17/2024 9:49 AM EST) WBC 4.91 4.00 - 11.00 K/uL [facility] RBC 4.57 4.50 - 5.90 M/uL [facility] HGB 14.7 13.5 - 17.5 g/dL [facility] HCT 42.5 41.0 - 53.0 % [facility] PLT 98(L) 150 - 450 K/uL [facility] Comment:Microscopic estimate : Platelets decreased. MCV 93.0 80.0 - 100.0 fL [facility] MCH 32.2(H) 27.0 - 31.0 pg [facility] MCHC 34.6 32.0 - 36.0 g/dL [facility] RDW 15.2(H) 11.5 - 14.5 % [facility] MPV 10.3 8.4 - 12.0 fL [facility] NRBC 0.00 0.00 /100 WBCs [facility] ABSOLUTE NRBC 0.00 0.00 K/uL [facility] Blood 09/17/2024 9:49 AM EST 09/17/2024 9:52 AM EST Brenda Aguiar NP LAB BLOOD ORDERABLES Gloria l Result Performing Organization Address City/[facility] Co de Phone Number [address] [address] * AFP (non-maternal specimens) (09/17/2024 9:49 AM EST) AFP (NON-MATERNAL) 4.1 <7.9 ng/mL [facility] Comment: Test Methodology Andrae [id number] Patient results determined by assays using different manufacturers or methods may not be comparable. Blood 09/17/2024 9:49 AM EST 09/17/2024 9:52 AM EST Brenda Aguiar NP LAB BLOOD ORDERABLES Gloria l Result Performing Organization Address City/[facility]/ZIP Co de Phone Number [address] [address] documented in this encounter Visit Diagnoses Diagnosis Alcoholic cirrhosis of liver without ascites- Primary documented in this encounter Care Teams Property Accountant Relationship Specialty Start Date End Date Hayden Britt MD [address] [place] [address] [place] [address] PCP - General Internal Medicine 11/04/21 documented as of this encounter Additional Source Comments The information contained in this document represents components of the legal health record. It is not the complete legal health record.[facility]
--- OUTSIDE RECORDS SUMMARY | 2025-07-02 20:42 | XMS_ITS | Encounter Summary ---
Author Organization [facility] Address [address] [place] [address] Phone Care Team Providers Care Sales Estimator Name Role Phone Hayden Britt MD Primary Care Provider Encounter Details Date Type Department Care Team (Latest Contact Info) Description 12/14/2021 Transcribe Orders [facility] [address] [address] Brenda Aguiar NP 10 [place] [address] Acute liver failure without hepatic coma (Primary [...] as of this encounter Plan of Treatment Not on file documented as of this encounter Results * (ABNORMAL) PT-INR (12/14/2021 2:36 PM EDT) PT 18.5(H) 10.2 - 12.9 sec [facility] INR 1.6(H) 0.9 - 1.1 [facility] Comment:Therapeutic range fo r oral Vitamin K antagonists: 2.0-3.5 Blood 12/14/2021 2:36 PM EDT 12/14/2021 2:40 PM EDT Brenda Aguiar NP LAB BLOOD ORDERABLES Gloria l Result Performing Organization Address [facility]/ZIP Co de Phone Number [address] [address] * Magnesium (12/14/2021 2:36 PM EDT) MAGNESIUM 1.6 1.6 - 2.6 mg/dL [facility] Blood 12/14/2021 2:36 PM EDT 12/14/2021 2:40 PM EDT Brenda Aguiar NP LAB BLOOD ORDERABLES Gloria l Result Performing Organization Address [facility] Co de Phone Number [address] [address] * Folate (12/14/2021 2:36 PM EDT) FOLIC ACID 18.3 4.2 - 19.9 ng/mL [facility] Blood 12/14/2021 2:36 PM EDT 12/14/2021 2:40 PM EDT Brenda Aguiar NP LAB BLOOD ORDERABLES Gloria l Result Performing Organization Address [facility] Co de Phone Number [address] [address] * 25-OH vitamin D (12/14/2021 2:36 PM EDT) 25 OH VIT D (TOTAL) 39 30 - 60 ng/mL [facility] Blood 12/14/2021 2:36 PM EDT 12/14/2021 2:40 PM EDT Brenda Maude [place] CHEMICAL PLANT OPERATOR LAB BLOOD ORDERABLES Gloria l Result [address] [address] * (ABNORMAL) C-Reactive Protein (12/14/2021 2:36 PM EDT) [facility] C REACTIVE PROTEIN 13.2(H) 0.0 - 4.0 mg/L [facility] Blood 12/14/2021 2:36 PM EDT 12/14/2021 2:40 PM EDT Brenda Aguiar CHEMICAL PLANT OPERATOR LAB BLOOD ORDERABLES Gloria l Result Performing Organization Address City/[facility]/ZIP Co de Phone Number [address] [address] * (ABNORMAL) Comprehensive metabolic panel (12/14/2021 2:36 PM EDT) [facility] SODIUM 129(L) 133 - 146 mmol/L [facility] POTASSIUM 4.4 3.3 - 5.1 mmol/L [facility] CHLORIDE 95(L) 96 - 108 mmol/L [facility] CO2 25 21 - 35 mmol/L [facility] BUN 7 6 - 19 mg/dL [facility] CREATININE 0.40(L) 0.5 - 1.5 mg/dL [facility] GLUCOSE 88 70 - 99 mg/dL [facility] ALBUMIN 3.3(L) 3.9 - 4.8 g/dL [facility] TOTAL PROTEIN 8.0 6.5 - 8.0 g/dL [facility] CALCIUM 9.4 8.4 - 10.3 mg/dL [facility] ALKALINE PHOSPHATASE 147(H) 39 - 117 U/L [facility] TOTAL BILIRUBIN 3.3(H) 0.0 - 1.2 mg/dL [facility] AST 107(H) 0 - 37 U/L [facility] ALT 51(H) 0 - 40 U/L [facility] GLOBULIN 4.7 1 - 4.8 g/dL [facility] EGFR >120 >59 mL/min/1.7 3m2 [facility] Comment:Estimated glomerular filtration rate calculated using the CKD-EPI refit equation. ANION GAP 13 10 - 20 mmol/L [facility] Blood 12/14/2021 2:36 PM EDT 12/14/2021 2:40 PM EDT us Brenda Aguiar NP LAB BLOOD ORDERABLES Gloria avalos Result [address] [address] * (ABNORMAL) CBC and differential (12/14/2021 2:36 PM EDT) WBC 12.15(H) 4.00 - 11.00 K/uL [facility] RBC 3.36(L) 4.23 - 5.82 M/uL [facility] HGB 12.0(L) 13.4 - 17.5 g/dL [facility] HCT 34.8(L) 37.0 - 51.0 % [facility] PLT 202 140 - 430 K/uL [facility] MCV 103.6(H) 78.0 - 97.0 fL [facility] MCH 35.7(H) 25.0 - 33.0 pg [facility] MCHC 34.5 32.0 - 36.0 g/dL [facility] RDW 13.3 11.0 - 15.0 % [facility] MPV 9.4 8.4 - 12.8 fl [facility] NRBC 0.00 0 /100 WBCs [facility] ABSOLUTE NRBC 0.00 0 K/uL [facility] DIFF METHOD Auto [facility] NEUTS 71.1 43.0 - 75.0 % [facility] LYMPHS 14.6(L) 18.2 - 47.4 % [facility] MONOS 11.0 4.00 - 11.00 % [facility] EOS 2.0 0.0 - 8.0 % [facility] BASOS 0.7 0.0 - 2.0 % [facility] Granulocytes, immature (%) 0.6 0.0 - 0.9 % [facility] ABSOLUTE NEUTS 8.64(H) 1.80 - 7.70 K/uL [facility] ABSOLUTE LYMPHS 1.77 1.00 - 3.10 K/uL [facility] ABSOLUTE MONOS 1.34(H) 0.20 - 0.80 K/uL [facility] ABSOLUTE EOS 0.24 0.00 - 0.80 K/uL [facility] ABSOLUTE BASOS 0.09 0.00 - 0.09 K/uL [facility] Granulocytes, immature 0.07(H) 0.00 - 0.05 K/uL [facility] Blood 12/14/2021 2:36 PM EDT 12/14/2021 2:40 PM EDT Brenda Aguiar CHEMICAL PLANT OPERATOR LAB BLOOD ORDERABLES Gloria avalos Result [facility] [address] [place] [address] documented in this encounter Visit Diagnoses Diagnosis Acute liver failure without hepatic coma- Primary documented in this encounter Care Teams Sales Estimator Relationship Specialty Start Date End Date Hayden Britt MD [address] [place] [address] [place] [address] PCP - General Internal Medicine 11/04/21 documented as of this encounter Additional Source Comments The information contained in this document represents components of the legal health record. It is not the complete legal health record.[facility]
--- OUTSIDE RECORDS SUMMARY | 2025-07-02 20:42 | XMS_ITS | Encounter Summary ---
Author Organization [facility] Address [address] [place] [address] Phone Care Team Providers Care Copyright Clerk Name Role Phone Hayden Britt MD Primary Care Provider Encounter Details Date Type Department Care Team (Latest Contact Info) Description 04/29/2025 Transcribe Orders Virtual Department [address] [place] [address] Fabrice Mcduffie MD [address] [place] [phone] [email or web address] Alcoholic cirrhosis, unspecified whether ascites present (Primary [...] this encounter Results * US ABDOMEN LIMITED SINGLE ORGAN (06/25/2025 9:00 AM EDT) Anatomical Region Laterality Modality Abdomen Ultrasound 06/25/2025 10:5 5 AM EDT Impressions 06/25/2025 10:59 AM EDT 1. Thoracic morphology to the liver without focal liver lesion. 2. Recanalized umbilical vein consistent with portal hypertension. 3. No ascites. 4. Cholelithiasis without evidence for acute cholecystitis. Narrative 06/25/2025 10:59 AM EDT US ABDOMEN LIMITED ONE OR MORE ORGANS Referring clinician's provided indication for this examination in Epic: Outside Radiology Order; cirrhosis TECHNIQUE: US Abdominal limited one or more organs. COMPARISON: US ABDOMEN LIMITED RIGHT UPPER QUADRANT ; MRI ABDOMEN (LIVER) WITH AND WITHOUT CONTRAST FINDINGS: Liver: Redemonstrated is a cirrhotic morphology to the liver with enlargement of left hepatic lobe and surface nodularity. The liver parenchyma is echogenic, heterogeneous and coarsened. No gross focal liver lesions are seen. Main Portal Vein: Patent with normal direction of flow. Gallbladder: There are multiple mobile calcified shadowing gallstones consistent with cholelithiasis. There is minimal distention of the gallbladder without wall thickening or pericholecystic fluid. Herman's Sign: None. Biliary: Normal. No intrahepatic or extrahepatic biliary ductal dilatation. The common bile duct measures 3 mm. Free Fluid: None seen. Note is made of a recanalized umbilical vein. Procedure Note Duong Aguilar MD - 06/25/2025 US ABDOMEN LIMITED ONE OR MORE ORGANS Referring clinician's provided indication for this examination in Epic:Outside Radiology Order; cirrhosis TECHNIQUE: US Abdominal limited one or more organs. COMPARISON: US ABDOMEN LIMITED RIGHT UPPER QUADRANT ; MRIABDOMEN (LIVER) WITH AND WITHOUT CONTRAST FINDINGS: Liver: Redemonstrated is a cirrhotic morphology to the liver withenlargement of left hepatic lobe and surface nodularity. The liverparenchyma is echogenic, heterogeneous and coarsened. No gross focal liverlesions are seen. Main Portal Vein: Patent with normal direction of flow. Gallbladder: There are multiple mobile calcified shadowing gallstonesconsistent with cholelithiasis. There is minimal distention of thegallbladder without wall thickening or pericholecystic fluid. Herman's Sign: None. Biliary: Normal. No intrahepatic or extrahepatic biliary ductaldilatation. The common bile duct measures 3 mm. Free Fluid: None seen. Note is made of a recanalized umbilical vein. IMPRESSION: 1. Thoracic morphology to the liver without focal liver lesion. 2. Recanalized umbilical vein consistent with portal hypertension. 3. No ascites. 4. Cholelithiasis without evidence for acute cholecystitis. Fabrice Mcduffie MD IMG US ABDOMEN Final Resu lt documented in this encounter Visit Diagnoses Diagnosis Alcoholic cirrhosis, unspecified whether ascites present- Primary Alcoholic cirrhosis, unspecified whether ascites present documented in this encounter Care Teams Copyright Clerk Relationship Specialty Start Date End Date Hayden Britt MD [address] [place] [address] [place] [address] PCP - General Internal Medicine 11/04/21 documented as of this encounter Additional Source Comments The information contained in this document represents components of the legal health record. It is not the complete legal health record.[facility]
--- OUTSIDE RECORDS SUMMARY | 2025-07-02 20:42 | XMS_ITS | Encounter Summary ---
Author Organization [facility] Address [address] [place] [address] Phone Care Team Providers Care Slip Laster Name Role Phone Hayden Britt MD Primary Care Provider Encounter Details Date Type Department Care Team (Latest Contact Info) Description 03/08/2022 Transcribe Orders Virtual Department 30 [place] [address] Fabrice Mcduffie MD [address] [place] [phone] [email or web address] Alcoholic cirrhosis, unspecified whether ascites present (Primary [...] without evidence of acutecholecystitis. Fabrice Mcduffie MD IM US ABDOMEN Final Resu lt documented in this encounter Visit Diagnoses Diagnosis Alcoholic cirrhosis, unspecified whether ascites present- Primary Alcoholic cirrhosis, unspecified whether ascites present documented in this encounter Care Teams Slip Laster Relationship Specialty Start Date End Date Hayden Britt MD NPI: [id number] [place] [address] [place] [address] PCP - General Internal Medicine 11/04/21 documented as of this encounter Additional Source Comments The information contained in this document represents components of the legal health record. It is not the complete legal health record.[facility]
--- OUTSIDE RECORDS SUMMARY | 2025-07-02 20:42 | XMS_ITS | Data Portability ---
Author Organization [place] [facility] Address [address] [place] [phone] Care Team Providers Care Freight Tallier Name Role Phone REBECA MADRIGAL Primary Care Provider [phone] Assessment Encounter Date Assessment Date Assessment LastModified [...] mcg/actuati on nasal spray,suspe nsion 2023 024 [facility] #[id number], [address], [place], [address], 11:59:09 Patient TargetsNo targets recorded. 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; Note: Date Diagnosed : 12/04/2023 1:28 PM (K71.7) Not Available [facility] 02:48:14 Chronic hoarsenes s 63427030728 05 Active 2023 DIPESH QUEEN MD [address] [place] [address], [facility] [place], [address] , [facility] - [facility] 4 15:16:17 Allergic rhinitis 35763364 Active 2023 DIPESH QUEEN MD [address],[place] [address], [facility], [address] , [facility] - [facility] 4 11:57:46 Problem Notes None recorded. Procedures Surgical History Date Name Laterality Status Provider Name and Address Organization Details Recorded Time 4 FOL_Reflux_JM S completed DIPESH SOTELO MD [address],[place] [address], [place], [address], [facility] - [facility] [place] 02/21/2024 11:57:38 4 excision of lesion of larynx completed DIPESH SOTELO MD [address],[place] [address], [place], [address], [facility] - [facility] 02/20/2024 15:14:41 Imaging Results None recorded. Procedure Notes None recorded. Medical Equipment None Reported. Allergies Allergen ID Allergen Name Allergen Category Reaction Reaction Severity Criticality Documentation Date Start Date Code Code System Note Provider Name and Address Organization Details Recorded Time 510493 morphine medicatio n other Not available Not available 04/12/2024 7052 RxNorm React ion: Unkno wn; Not Available [facility] 4 00:31:33 Medications Name Sig Start Date Stop Date Status Note LastModified by Organization Details LastModified Time spironolac tone 25 mg tablet active Medicatio n ID: [id number] Br and Name: spironola ctone Sen d Method: E-Prescri bed Subs Allowed: subs OK Medica tionGener icName: spironola ctone Not Available Not Available Not Available omeprazole 20 mg capsule,de layed release active Medicatio n ID: [id number] Br and Name: omeprazol e Send Method: E-Prescri bed Subs Allowed: subs OK Medica tionGener icName: omeprazol e Not Available Not Available Not Available furosemide 20 mg tablet active Medicatio n ID: [id number] Br and Name: furosemid e Send Method: E-Prescri bed Subs Allowed: subs [place] Medica tionGener icName: furosemid e Not Available Not Available Not Available fluticason e propionate 50 mcg/actuat ion nasal spray,susp ension Zuni 1 spray every day by intranasa l route. 2023 active Not Available Not Available Not Avai lable Vitamin D3 25 mcg (1,000 unit) capsule active Medicatio n ID: [id number] Br and Name: Vitamin D3 Send Method: E-Prescri bed Subs Allowed: subs [place] Medica tionGener icName: Vitamin D3 Not Available Not Available Not Available iron active Medicatio n ID: [id number] Br and Name: iron Send Method: E-Prescri bed Subs Allowed: subs [place] Medica tionGener icName: iron Not Available Not Available Not Available Vitals Date Recorded Body height Body mass index (BMI) Body weight Provider Name and Address Organization Details Last Updated DateTime 02/21/2024 180.34 cm 25.1 kg/m2 19522.63 g Jorge Davila [place] - [facility] 02/21/2024 11:35:38 Social History None recorded. Functional Status None recorded. Mental Status None recorded. Family History Nothing Reported. Medical History Condition Response Liver Disease Y Past Encounters Encounter ID Performer Location Encounter Start Date Encounter Closed Date Diagnosis/Indication Diagnosis SNOMED-CT Code Diagnosis ICD10 Code Diagnosis IMO Codes Diagnosis Note [id number] DIPESH QUEEN MD [facility] [address] [address] 02/21/2024 11:33:13 02/21/2024 12:01:49 Chronic hoarseness 0846408073 105 R49.0 Allergic rhinitis 754676 04 J30.9 Health Concerns Section Related Observation LastModified by Organization Detai ls LastModified Time None Recorded Concern Status LastModified by Organization Details LastModified Time None Recorded Advance Directives Directive None Recorded Payers Insurance Date Sequence Insurance Name Policy Number Policy Membreno Covered Member ID Membreno Member ID Guarantor Name 02/29/2024 1 [facility] [place]MEDICAID HMO) [id number] Brian Birch [id number] Brian Birch Notes Date Note Type Note Provider Name and Address Organization Details Recorded Time 02/21/2024 text/html excision benign lesion right TVF 01/02/2024. Voice much improved. He has been having some postnasal drip with throat clearing due to allergy. He did rest his voice for 2 weeks. DIPESH SOTELO MD [address] [place] [address], [place], [address], [facility] - [facility] 02/21/2024 12:08:37
--- OUTSIDE RECORDS SUMMARY | 2025-07-02 20:42 | XMS_ITS | Encounter Summary ---
Author Organization [facility] Address [address] [place] [address] Phone Care Team Providers Care Hot Packer Name Role Phone Hayden Britt MD Primary Care Provider Encounter Details Date Type Department Care Team (Late st Contact Info) Description 11/26/2021 Procedure Pass [facility] [address] [place] [address] Social History Tobacco Use Types Packs/Day Years [...] on file documented as of this encounter Visit Diagnoses Not on filedocumented in this encounter Additional Health Concerns Infection Onset Date Last Indicated Resolved Time MRSA Comment:Import to add expiration date of 11/27/2021 per Infection Control as part of historical infection status reconciliation 06/14/2005 06/14/2005 11/28/19 22 1:35 AM EDT documented as of this encounter Care Teams Hot Packer Relationship Specialty Start Date End Date Hayden Britt MD [address] [place] [address] [place] [address] PCP - General Internal Medicine 11/04/21 documented as of this encounter Additional Source Comments The information contained in this document represents components of the legal health record. It is not the complete legal health record.[facility]
--- OUTSIDE RECORDS SUMMARY | 2025-07-02 20:42 | XMS_ITS | Encounter Summary ---
Author Organization [facility] Address [address] [place] [address] Phone Care Team Providers Care Rehabilitation Counsellor Name Role Phone Hayden Britt MD Primary Care Provider Encounter Details Date Type Department Care Team (Late st Contact Info) Description 12/02/2021 Procedure Pass [facility] [address] [place] [address] Social History Tobacco Use Types Packs/Day Years [...] on filedocumented in this encounter Care Teams Rehabilitation Counsellor Relationship Specialty Start Date End Date Hayden Britt MD [address] [place] [address] [place] [address] PCP - General Internal Medicine 11/04/21 documented as of this encounter Additional Source Comments The information contained in this document represents components of the legal health record. It is not the complete legal health record.[facility]
--- OUTSIDE RECORDS SUMMARY | 2025-07-02 20:42 | XMS_ITS | Encounter Summary ---
Author Organization [facility] Address [address] [place] [address] Phone Care Team Providers Care Beverage Manager Name Role Phone Hayden Britt MD Primary Care Provider Encounter Details Date Type Department Care Team (Latest Contact Info) Description 11/21/2023 Transcribe Orders Virtual Department [address] [place] [address] Fabrice Mcduffie MD [address] [place] [phone] [email or web address] Alcoholic cirrhosis of liver without ascites (Primary [...] ascites documented in this encounter Care Teams Beverage Manager Relationship Specialty Start Date End Date Hayden Britt MD [address] [place] [address] [place] [address] PCP - General Internal Medicine 11/04/21 documented as of this encounter Additional Source Comments The information contained in this document represents components of the legal health record. It is not the complete legal health record.[facility]
--- OUTSIDE RECORDS SUMMARY | 2025-07-02 20:42 | XMS_ITS | Clinical Summary ---
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 2 Assessment & Plan (10/29/2021 1:18 AM EST): [...] Encounters Date Type Department Care Team Description 06/27/2025 Orders Only [facility] G[facility]ology [facility] [address] [place] [address] Fabrice Mcduffie MD Alcoholic cirrhosis of liver with ascites (Primary Dx) 06/25/2025 8:05 AM EDT - 06/25/2025 11:59 PM EDT Hospital Encounter [facility], [address] [address] Fabrice Mcduffie MD Discharge Disposition: Home or Self Care 04/29/2025 Transcribe Orders Virtual Department [address] [place] [address] Fabrice Mcduffie MD Alcoholic cirrhosis, unspecified whether [...] 11/13/2023 1:24 PM EST Plan of Treatment Health Maintenance Due Date Last Done Comments Adult Td,Tdap Booster 1983 DEPRESSION SCREENING 1995 HEPATITIS A VACCINES (1 of 2 - Risk 2-dose series) 2002 PNEUMOCOCCAL VACCINES (0-49 years) (1 of 2 - PCV) 2002 INFLUENZA VACCINE (#1) 2025 COVID-19 VACCINE (3 - season) 2025 01/12/2021, 12/21/2020 SMOKING Hx and [...] this topic Medical Devices Implanted Type Area Single Ending Machine Operator Device Identifier Shelf Expiration Date Model / Serial / Lot Left Ankle Plate And Screws Procedures Procedure Name Priority Date/Time Associated Diagnosis Comments US ABDOMEN LIMITED SINGLE ORGAN Routine 06/25/2025 9:00 AM EDT Alcoholic cirrhosis, unspecified whether ascites present COMPREHENSIVE METABOLIC PANEL Routine 09/17/2024 9:49 AM EST Alcoholic cirrhosis of liver without ascites LIPID PANEL Routine 08/15/2022 9:57 AM EST Alcoholic cirrhosis Pre-transplant evaluation for liver transplant HEPATITIS C ANTIBODY, QUALITATIVE Routine 08/15/2022 9:57 AM EST Alcoholic cirrhosis Pre-transplant evaluation for liver transplant from Last 3 Months or Most Recently Relevant to Health Maintenance Results * US ABDOMEN LIMITED SINGLE ORGAN [...] clinician's provided indication for this examination in [facility]: Outside Radiology Order; cirrhosis TECHNIQUE: US [...] clinician's provided indication for this examination in [facility]:Outside Radiology Order; cirrhosis TECHNIQUE: US Abdominal [...] MD IMG US ABDOMEN Final Resu lt * (ABNORMAL) Comprehensive metabolic panel (09/17/2024 9:49 AM EST) SODIUM 141 133 - 146 mmol/L [facility] POTASSIUM 3.7 3.3 - 5.1 mmol/L [facility] CHLORIDE 107 96 - 108 mmol/L [facility] CO2 27 21 - 35 mmol/L [facility] BUN 9 6 - 19 mg/dL [facility] CREATININE 0.50 0.5 - 1.5 mg/dL [facility] GLUCOSE 69(L) 70 - 99 mg/dL [facility] ALBUMIN 3.9 3.9 - 4.8 g/dL [facility] TOTAL PROTEIN 6.7 6.5 - 8.0 g/dL [facility] CALCIUM 9.3 8.4 - 10.3 mg/dL [facility] ALKALINE PHOSPHATASE 132(H) 39 - 117 U/L [facility] TOTAL BILIRUBIN 1.3(H) 0.0 - 1.2 mg/dL [facility] AST 58(H) 0 - 37 U/L [facility] ALT 52(H) 0 - 40 U/L [facility] GLOBULIN 2.8 1 - 4.8 g/dL [facility] EGFR >120 >59 mL/min/1.7 3m2 [facility] Comment:Estimated glomerular filtration rate calculated using the CKD-EPI refit equation. ANION GAP 11 10 - 20 mmol/L [facility] Blood 09/17/2024 9:49 AM EST 09/17/2024 9:52 AM EST Brenda Aguiar NP LAB BLOOD ORDERABLES Gloria avalos Result [facility] [address] [place] [address] * Hepatitis C antibody, qualitative (08/15/2022 9:57 AM EST) HCV ANTIBODY Negative Negative [facility] Comment:Antibodies to HCV no t detected. Does not exclude the possibility of exposure to HCV. 08/15/2022 9:57 AM EST 08/15/2022 12:24 PM EST Briana Croft Tiffany TRAPEZE PERFORMER LAB BLOOD ORDERABLES Final Result [address] [address] * (ABNORMAL) Lipid panel (08/15/2022 9:57 AM EST) HDL 68 35 - 100 mg/dL [facility] CHOLESTEROL 309(H) <200 mg/dL [facility] TRIGLYCERIDES 113 40 - 150 mg/dL [facility] LDL 218(H) 50 - 129 mg/dL [facility] CARDIAC RISK RATIO 4.5 0.0 - 5.0 [facility] NON-HDL CHOLESTEROL 241 mg/dL [facility] Comment:NCEP ATP III guideli lashon suggest a non-HDL cholesterol goal 30 mg/dl higher than the patient-specific LDL goal. 08/15/2022 9:57 AM EST 08/15/2022 12:23 PM EST Briana Allen TRAPEZE PERFORMER LAB BLOOD ORDERABLES Final Result Performing Organization Address City/[facility]/ZIP Co de Phone Number [address] [address] from Last 3 Months or Most Recently Relevant to Health Maintenance Insurance [facility] [place] [address] [place] [address] [place] [address] [place] [address] [place] [place] [address] ACO Member Subscriber Plan / Payer (Ef fective 2024-Present) Name:Brian Birch Relation to Subscriber:Self Name:Brian Birch Payer ID:[id number] Group ID:[id number] Type:Medicaid Address: [place] [id number] [place] [address] [place] [place] [address] ACO Advance Directives For more information, please contact: [phone] (9AM - 5PM [place], Monday-Monday) * Full Code (Latest Code Status on File) Date Activated Date Inactivated Comments 10/29/2021 1:17 AM Question Answer Comments Code Status Confirmed With: Patient * Full Code Date Activated Date Inactivated Comments 10/12/2021 10:15 PM 10/29/2021 1:17 AM Question Answer Comments Code Status Confirmed With: Patient Care Teams Bow Making Machine Operator Relationship Specialty Start Date End Date Hayden Britt MD [address] [place] [address] [place] [address] PCP - General Internal Medicine 11/04/21 Additional Source Comments The information contained in this document represents components of the legal health record. It is not the complete legal health record.[facility]
--- OUTSIDE RECORDS SUMMARY | 2025-07-02 20:42 | XMS_ITS | Encounter Summary ---
Author Organization [facility] Address [address] [place] [address] Phone Care Team Providers Care Cash Processor Name Role Phone Hayden Britt MD Primary Care Provider Encounter Details Date Type Department Care Team (Latest Contact Info) Description 11/28/2022 Transcribe Orders Virtual Department [address] [place] [address] Brenda Aguiar NP [address] [place] [address] Alcoholic cirrhosis of liver without ascites (Primary [...] Primary documented in this encounter Care Teams Cash Processor Relationship Specialty Start Date End Date Hayden Britt MD [address] [place] [address] [place] [address] PCP - General Internal Medicine 11/04/21 documented as of this encounter Additional Source Comments The information contained in this document represents components of the legal health record. It is not the complete legal health record.[facility]
--- OUTSIDE RECORDS SUMMARY | 2025-07-02 20:42 | XMS_ITS | Encounter Summary ---
Author Organization [facility] Address [address] [place] [address] Phone Care Team Providers Care Master Brewer Name Role Phone Hayden Britt MD Primary Care Provider Encounter Details Date Type Department Care Team (Latest Contact Info) Description 03/25/2024 Transcribe Orders Virtual Department [address] [place] [address] Fabrice Mcduffie MD [address] [place] [address] [email or web address] Alcoholic cirrhosis, unspecified whether ascites present (Primary [...] waveform.. Ascites: Scant perihepatic fluid. Procedure Note Hipolito Tran MD - 06/20/2024 Procedure: US ABDOMEN LIMITED RIGHT UPPER QUADRANT 06/20/2024 8:49 AM US Indications: Outside Radiology Order; cirrhosis. Comparison: MRI abdomen dated December 13, 2023. Ultrasound limited datedApril 2023. CT abdomen/pelvis dated December 11, 2023. [...] present documented in this encounter Care Teams Master Brewer Relationship Specialty Start Date End Date Hayden Britt MD [address] [place] [address] [place] [address] PCP - General Internal Medicine 11/04/21 documented as of this encounter Additional Source Comments The information contained in this document represents components of the legal health record. It is not the complete legal health record.[facility]
--- OUTSIDE RECORDS SUMMARY | 2025-07-02 20:42 | XMS_ITS | Encounter Summary ---
Author Organization [facility] Address [address] [place] [address] Phone Care Team Providers Care Tire Bagger Name Role Phone Hayden Britt MD Primary Care Provider Encounter Details Date Type Department Care Team (Late st Contact Info) Description 10/31/2023 Procedure Pass [facility], Ct Scan - [facility] [address] [place] [address] Social History Tobacco Use Types Packs/Day Years [...] on filedocumented in this encounter Care Teams Tire Bagger Relationship Specialty Start Date End Date Hayden Britt MD [address] [place] [address] Dr [place], [place] [address] PCP - General Internal Medicine 11/04/21 documented as of this encounter Additional Source Comments The information contained in this document represents components of the legal health record. It is not the complete legal health record.[facility]
--- OUTSIDE RECORDS SUMMARY | 2025-07-02 20:42 | XMS_ITS | Encounter Summary ---
Author Organization [facility] Address [address] [place] [address] Phone Care Team Providers Care Dispensary Technician Name Role Phone Hayden Britt MD Primary Care Provider Encounter Details Date Type Department Care Team (Late st Contact Info) Description 04/20/2022 Procedure Pass [facility] Endoscopy Admitting Dept Virtual Department 30 [place] [address] Social History Tobacco Use Types Packs/Day Years [...] on filedocumented in this encounter Care Teams Dispensary Technician Relationship Specialty Start Date End Date Hayden Britt MD [address] [place] [address] [place] [address] PCP - General Internal Medicine 11/04/21 documented as of this encounter Additional Source Comments The information contained in this document represents components of the legal health record. It is not the complete legal health record.[facility]
--- OUTSIDE RECORDS SUMMARY | 2025-07-02 20:42 | XMS_ITS | Encounter Summary ---
Author Organization [facility] Address [address] [place] [address] Phone Care Team Providers Care Bus Person Dishwasher Name Role Phone Hayden Britt MD Primary Care Provider Encounter Details Date Type Department Care Team (Latest Contact Info) Description 06/27/2025 Orders Only [facility] Gastroenterology Clinic [address] [place] [address] Fabrice Mcduffie MD [address] [address] [email or web address] Alcoholic cirrhosis of liver with ascites (Primary [...] Schedule US Abdomen Limited Imaging Routine Alcoholic cirrhosis of liver with ascites Expected: 12/26/2025, Expires: 06/27/2027 documented as of this encounter Visit Diagnoses Diagnosis Alcoholic cirrhosis of liver with ascites- Primary documented in this encounter Care Teams Bus Person Dishwasher Relationship Specialty Start Date End Date Hayden Britt MD [address] [place] [address] [place] [address] PCP - General Internal Medicine 11/04/21 documented as of this encounter Additional Source Comments The information contained in this document represents components of the legal health record. It is not the complete legal health record.[facility]
--- OUTSIDE RECORDS SUMMARY | 2025-07-02 20:42 | XMS_ITS | Encounter Summary ---
Author Organization [facility] Address [address] [place] [address] Phone Care Team Providers Care Fitting Room Attendant Name Role Phone Hayden Britt MD Primary Care Provider Encounter Details Date Type Department Care Team (Late st Contact Info) Description 07/26/2024 Procedure Pass [facility] Endoscopy Admitting Dept Virtual Department 30 [place] [address] Social History Tobacco Use Types Packs/Day Years [...] on filedocumented in this encounter Care Teams Fitting Room Attendant Relationship Specialty Start Date End Date Hayden Britt MD [address] [place] [address] [place] [address] PCP - General Internal Medicine 11/04/21 documented as of this encounter Additional Source Comments The information contained in this document represents components of the legal health record. It is not the complete legal health record.[facility]
--- OUTSIDE RECORDS SUMMARY | 2025-07-02 20:42 | XMS_ITS | Encounter Summary ---
Author Organization [facility] Address [address] [place] [address] Phone Care Team Providers Care Cutter Gas Name Role Phone Hayden Britt MD Primary Care Provider Encounter Details Date Type Department Care Team (Late st Contact Info) Description 10/27/2023 Procedure Pass [facility], [facility] [address] [place] [address] Social History Tobacco Use Types Packs/Day Years [...] on filedocumented in this encounter Care Teams Cutter Gas Relationship Specialty Start Date End Date Hayden Britt MD [address] [place] [address] [place] [address] PCP - General Internal Medicine 11/04/21 documented as of this encounter Additional Source Comments The information contained in this document represents components of the legal health record. It is not the complete legal health record.[facility]
--- OUTSIDE RECORDS SUMMARY | 2025-07-02 20:42 | XMS_ITS | Encounter Summary ---
Author Organization [facility] Address [address] [place] [address] Phone Care Team Providers Care Head Cleaning Porter Name Role Phone Hayden Britt MD Primary Care Provider Encounter Details Date Type Department Care Team (Latest Contact Info) Description 12/12/2024 Transcribe Orders Virtual Department [address] [place] [address] Fabrice Mcduffie MD [address] [place] [address] [email or web address] Alcoholic cirrhosis, unspecified whether ascites present (Primary [...] clinician's provided indication for this examination in [facility]: Outside Radiology Order; Cirrhosis TECHNIQUE: US Abdominal [...] clinician's provided indication for this examination in [facility]:Outside Radiology Order; Cirrhosis TECHNIQUE: US Abdominal limited [...] 3. Trace ascites, perihepatic. Fabrice Mcduffie MD IMG US ABDOMEN Final Resu lt documented in this encounter Visit Diagnoses Diagnosis Alcoholic cirrhosis, unspecified whether ascites present- Primary Alcoholic cirrhosis, unspecified whether ascites present documented in this encounter Care Teams Head Cleaning Porter Relationship Specialty Start Date End Date Hayden Britt MD [address] [place] [address] [place] [address] PCP - General Internal Medicine 11/04/21 documented as of this encounter Additional Source Comments The information contained in this document represents components of the legal health record. It is not the complete legal health record.[facility]
--- OUTSIDE RECORDS SUMMARY | 2025-07-02 20:42 | XMS_ITS | Encounter Summary ---
Author Organization [facility] Address [address] [place] [address] Phone Care Team Providers Care Mortgage Protection Specialist Name Role Phone Hayden Britt MD Primary Care Provider Encounter Details Date Type Department Care Team (Latest Contact Info) Description 12/14/2021 Transcribe Orders Virtual Department 30 [place] [address] Brenda Aguiar NP 10 [place] [address] Acute liver failure without hepatic coma (Primary [...] Primary documented in this encounter Care Teams Mortgage Protection Specialist Relationship Specialty Start Date End Date Hayden Britt MD [address] [place] [address] [place] [address] PCP - General Internal Medicine 11/04/21 documented as of this encounter Additional Source Comments The information contained in this document represents components of the legal health record. It is not the complete legal health record.[facility]
--- OUTSIDE RECORDS SUMMARY | 2025-07-02 20:42 | XMS_ITS | Encounter Summary ---
Author Organization [facility] Address [address] [place] [address] Phone Care Team Providers Care Mop Man Name Role Phone Unknown, Unknown Primary Care Provider [place] duckworth Pcp, Unknown Primary Care Provider Hayden Chu MD Primary Care Provider Encounter Details Date Type Department Care Team (Late st Contact Info) Description 10/13/2021 Procedure Pass [facility] 30 [place] [address] Social History Tobacco Use Types Packs/Day Years [...] documented as of this encounter Care Teams Mop Man Relationship Specialty Start Date End Date Unknown, Unknown, PCP - General 11/10/17 10/21/21 Pcp, Unknown PCP - General 10/22/21 11/03/21 Hayden Britt MD [address] [place] [address] [place] [address] PCP - General Internal Medicine 11/04/21 documented as of this encounter Additional Source Comments The information contained in this document represents components of the legal health record. It is not the complete legal health record.[facility]
--- OUTSIDE RECORDS SUMMARY | 2025-07-02 20:42 | XMS_ITS | Encounter Summary ---
Author Organization [facility] Address [address] [place] [address] Phone Care Team Providers Care Burring Machine Operator Name Role Phone Hayden Britt MD Primary Care Provider Reason for Referral * MRI/CAT Scan - Closed Specialty Diagnoses / Procedures Referred By Contac t Referred To Contact Radiology Diagnoses Liver lesion Procedures MRI Abdomen CHG MRI, ABDOMEN, COMBO Fabrice Mcduffie MD Phone: tel: fax: mailto:[email or web address] Referral ID Status Reason Start Date Expiration Date Visits Re quested Visits Authorized [id number] Closed 10/12/2022 04/10/2023 1 1 Encounter Details Date Type Department Care Team (Latest Contact Info) Description 10/12/2022 Transcribe Orders Virtual Department 30 [place] [address] Fabrice Mcduffie MD [address] [address] [email or web address] Liver lesion (Primary Dx) Social History Tobacco [...] liver documented in this encounter Care Teams Burring Machine Operator Relationship Specialty Start Date End Date Hayden Britt MD [address] [place] [address] [place] [address] PCP - General Internal Medicine 11/04/21 documented as of this encounter Additional Source Comments The information contained in this document represents components of the legal health record. It is not the complete legal health record.[facility]
--- OUTSIDE RECORDS SUMMARY | 2025-07-02 20:42 | XMS_ITS | Encounter Summary ---
Author Organization [facility] Address [address] [place] [address] Phone Care Team Providers Care Laboratory Chief Name Role Phone Hayden Britt MD Primary Care Provider Reason for Referral * MRI/CAT Scan - Closed Specialty Diagnoses / Procedures Referred By Contac t Referred To Contact Radiology Diagnoses Hepatic cirrhosis, unspecified hepatic cirrhosis type, unspecified whether ascites present Procedures CT Abdomen/Pelvis CHG CT SCAN,ABDOMENT AND PELVIS,W CONTRAST Fabrice Mcduffie MD [address] [place] [address] Phone: tel: fax: mailto:[email or web address] Referral ID Status Reason Start Date Expiration Date Visits Re quested Visits Authorized [id number] Closed 10/29/2023 04/26/2024 1 1 Encounter Details Date Type Department Care Team (Latest Contact Info) Description 10/31/2023 Transcribe Orders Virtual Department 30 [place] [address] Fabrice Mcduffie MD [address] [address] [email or web address] Hepatic cirrhosis, unspecified hepatic cirrhosis type, unspecified [...] present documented in this encounter Care Teams Laboratory Chief Relationship Specialty Start Date End Date Hayden Britt MD [address] [place] [address] [place] [address] PCP - General Internal Medicine 11/04/21 documented as of this encounter Additional Source Comments The information contained in this document represents components of the legal health record. It is not the complete legal health record.[facility]
--- OUTSIDE RECORDS SUMMARY | 2025-07-02 20:42 | XMS_ITS | Encounter Summary ---
Author Organization [facility] Address [address] [place] [address] Phone Care Team Providers Care Component Assembler Name Role Phone Hayden Britt MD Primary Care Provider Encounter Details Date Type Department Care Team (Latest Contact Info) Description 09/09/2022 Transcribe Orders Virtual Department [address] [place] [address] Fabrice Mcduffie MD [address] [place] [address] [email or web address] Hepatoma (Primary Dx) Social History Tobacco Use [...] Cholelithiasis without sonographic evidence of acute cholecystitis Fabrice Mcduffie MD IMG US ABDOMEN Final Resu lt documented in this encounter Visit Diagnoses Diagnosis Hepatoma- Primary Malignant neoplasm of liver, primary Hepatoma Malignant neoplasm of liver, primary documented in this encounter Care Teams Component Assembler Relationship Specialty Start Date End Date Hayden Britt MD [address] [place] [address] [place] [address] PCP - General Internal Medicine 11/04/21 documented as of this encounter Additional Source Comments The information contained in this document represents components of the legal health record. It is not the complete legal health record.[facility]
--- OUTSIDE RECORDS SUMMARY | 2025-07-02 20:42 | XMS_ITS | Encounter Summary ---
Author Organization [facility] Address [address] [place] [address] Phone Care Team Providers Care Credit Card Associate Name Role Phone Hayden Britt MD Primary Care Provider Encounter Details Date Type Department Care Team (Latest Contact Info) Description 05/26/2023 Transcribe Orders [facility] Laboratory [address] [address] Fabrice Mcduffie MD [address] [address] [email or web address] Alcoholic cirrhosis of liver with ascites (Primary [...] EDT) PT 14.7(H) 10.2 - 12.9 sec [facility] INR 1.3(H) 0.9 - 1.1 [facility] Comment:Therapeutic range fo r oral Vitamin K antagonists: 2.0-3.5 Blood 05/26/2023 9:19 AM EDT 05/26/2023 9:22 AM EDT Fabrice Mcduffie MD LAB BLOOD ORDERABLES Final Result Performing Organization Address City/State/[facility] Co de Phone Number [address] [address] * (ABNORMAL) Comprehensive metabolic panel (05/26/2023 9:19 AM EDT) SODIUM 141 133 - 146 mmol/L [facility] POTASSIUM 4.0 3.3 - 5.1 mmol/L [facility] CHLORIDE 105 96 - 108 mmol/L [facility] CO2 27 21 - 35 mmol/L [facility] BUN 8 6 - 19 mg/dL [facility] CREATININE 0.60 0.5 - 1.5 mg/dL [facility] GLUCOSE 90 70 - 99 mg/dL [facility] ALBUMIN 4.0 3.9 - 4.8 g/dL [facility] TOTAL PROTEIN 7.1 6.5 - 8.0 g/dL [facility] CALCIUM 9.0 8.4 - 10.3 mg/dL [facility] ALKALINE PHOSPHATASE 173(H) 39 - 117 U/L [facility] TOTAL BILIRUBIN 2.2(H) 0.0 - 1.2 mg/dL [facility] AST 59(H) 0 - 37 U/L [facility] ALT 39 0 - 40 U/L [facility] GLOBULIN 3.1 1 - 4.8 g/dL [facility] EGFR >120 >59 mL/min/1.7 3m2 [facility] Comment:Estimated glomerular filtration rate calculated using the CKD-EPI refit equation. ANION GAP 13 10 - 20 mmol/L [facility] Blood 05/26/2023 9:19 AM EDT 05/26/2023 9:22 AM EDT us Fabrice Mcduffie MD LAB BLOOD ORDERABLES Final Result Performing Organization Address City/[facility]/ZIP Co de Phone Number [address] [address] * (ABNORMAL) CBC (05/26/2023 9:19 AM EDT) WBC 6.21 4.00 - 11.00 K/uL [facility] RBC 4.39 4.23 - 5.82 M/uL [facility] HGB 14.3 13.4 - 17.5 g/dL [facility] HCT 42.5 37.0 - 51.0 % [facility] PLT 121(L) 140 - 430 K/uL [facility] MCV 96.8 78.0 - 97.0 fL [facility] MCH 32.6 25.0 - 33.0 pg [facility] MCHC 33.6 32.0 - 36.0 g/dL [facility] RDW 15.9(H) 11.0 - 15.0 % [facility] MPV 9.7 8.4 - 12.8 fl [facility] Blood 05/26/2023 9:19 AM EDT 05/26/2023 9:22 AM EDT us Fabrice Mcduffie MD LAB BLOOD ORDERABLES Final Result Performing Organization Address [facility] Co de Phone Number [address] [address] * AFP (non-maternal specimens) (05/26/2023 9:19 AM EDT) AFP (NON-MATERNAL) 4.3 <7.9 ng/mL [facility] Comment: Test Methodology Andrae [id number] Patient results determined by assays using different manufacturers or methods may not be comparable. Blood 05/26/2023 9:19 AM EDT 05/26/2023 9:22 AM EDT Fabrice Mcduffie MD LAB BLOOD ORDERABLES Final Result [address] [address] documented in this encounter Visit Diagnoses Diagnosis Alcoholic cirrhosis of liver with ascites- Primary documented in this encounter Care Teams Credit Card Associate Relationship Specialty Start Date End Date Hayden Britt MD [address] [place] [address] [place] [address] PCP - General Internal Medicine 11/04/21 documented as of this encounter Additional Source Comments The information contained in this document represents components of the legal health record. It is not the complete legal health record.[facility]
--- OUTSIDE RECORDS SUMMARY | 2025-07-02 20:42 | XMS_ITS | Encounter Summary ---
Author Organization [facility] Address [address] [place] [phone] Phone Care Team Providers Care Arnp Name Role Phone Unknown, Unknown Primary Care Provider Indio duckworth Pcp, Unknown Primary Care Provider Hayden Chu MD Primary Care Provider Encounter Details Date Type Department Care Team (Late st Contact Info) Description 10/13/2021 Procedure Pass [facility] Cardiovascular And Interventional Radiology 30 [place] [address] Social History Tobacco Use Types Packs/Day Years [...] documented as of this encounter Care Teams Arnp Relationship Specialty Start Date End Date Unknown, Unknown, PCP - General 11/10/17 10/21/21 Pcp, Unknown PCP - General 10/22/21 11/03/21 Hayden Britt MD [address] [place] [address] [place] [address] PCP - General Internal Medicine 11/04/21 documented as of this encounter Additional Source Comments The information contained in this document represents components of the legal health record. It is not the complete legal health record.[facility]
--- OUTSIDE RECORDS SUMMARY | 2025-07-02 20:42 | XMS_ITS | Encounter Summary ---
Author Organization [facility] Address [address] [place] [address] Phone Care Team Providers Care Ac/Dc Rewinder Name Role Phone Hayden Britt MD Primary Care Provider Encounter Details Date Type Department Care Team (Late st Contact Info) Description 03/15/2023 Ancillary Orders Virtual Department 30 [place] [address] Brenda Aguiar NP 10 [place] [address] Alcoholic cirrhosis of liver without ascites Social [...] acute cholecystitis or bile ductdilation. us Brenda Santoro Fuadjavierjer FIBERGLASS LAMINATOR IMG US ABDOMEN Final Res ult documented in this encounter Visit Diagnoses Diagnosis Alcoholic cirrhosis of liver without ascites Alcoholic cirrhosis of liver without ascites documented in this encounter Care Teams Ac/Dc Rewinder Relationship Specialty Start Date End Date Hayden Britt MD [address] [place] [address] [place] [address] PCP - General Internal Medicine 11/04/21 documented as of this encounter Additional Source Comments The information contained in this document represents components of the legal health record. It is not the complete legal health record.[facility]
--- OUTSIDE RECORDS SUMMARY | 2025-07-02 20:42 | XMS_ITS | Encounter Summary ---
Author Organization [facility] Address [address] [place] [address] Phone Care Team Providers Care Transfer And Line Up Worker Name Role Phone Unknown, Unknown Primary Care Provider Indio duckworth Pcp, Unknown Primary Care Provider Hayden Chu MD Primary Care Provider Encounter Details Date Type Department Care Team (Late st Contact Info) Description 10/12/2021 Procedure Pass [facility], Ct Scan - [facility] 30 [place] [address] Social History Tobacco Use Types Packs/Day Years [...] 10/12/2021 11:00 PM Abel Pike RN * [place] Suicide Severity Rating Scale (Screener/Recent Self-Report) Question [...] documented as of this encounter Care Teams Transfer And Line Up Worker Relationship Specialty Start Date End Date Unknown, Unknown, MD PCP - General 11/10/17 10/21/21 Pcp, Unknown PCP - General 10/22/21 11/03/21 Hayden Britt MD [address] [place] [address] [place] [address] PCP - General Internal Medicine 11/04/21 documented as of this encounter Additional Source Comments The information contained in this document represents components of the legal health record. It is not the complete legal health record.[facility]
--- OUTSIDE RECORDS SUMMARY | 2025-07-02 20:42 | XMS_ITS | Encounter Summary ---
Author Organization [facility] Address [address] [place] [address] Phone Care Team Providers Care General Road Production Manager Name Role Phone Hayden Britt MD Primary Care Provider Encounter Details Date Type Department Care Team (Late st Contact Info) Description 10/12/2022 Procedure Pass [facility], [address] [address] Social History Tobacco Use Types Packs/Day Years [...] on filedocumented in this encounter Care Teams General Road Production Manager Relationship Specialty Start Date End Date Hayden Britt MD [address] [place] [address] [place] [address] PCP - General Internal Medicine 11/04/21 documented as of this encounter Additional Source Comments The information contained in this document represents components of the legal health record. It is not the complete legal health record.[facility]
--- OUTSIDE RECORDS SUMMARY | 2025-07-02 20:42 | XMS_ITS | Encounter Summary ---
Author Organization [facility] Address [address] [place] [address] Phone Care Team Providers Care Filament Tester Name Role Phone Pcp, Unknown Primary Care Provider Hayden Chu MD Primary Care Provider Encounter Details Date Type Department Care Team (Late st Contact Info) Description 10/30/2021 Procedure Pass [facility] Cardiovascular And Interventional Radiology 30 [place] [address] Social History Tobacco Use Types Packs/Day Years [...] 11/02/2021 11:26 PM Mannie Syed RN * [place] Suicide Severity Rating Scale (Screener/Recent Self-Report) Question Answer Date of Assessment Author 1. Wish to be (Past 1 Month) No 022 11:26 PM Mannie Syed, RN 2. Non-Specific Active Suici mercedes Thoughts (Past 1 Month) No 11/02/2021 11:26 PM Jhoan Syed ea, RN 6. Suicidal Behavior (Lifetime) No 2 11:26 PM Mannie Syed, JAKE documented as of this encounter Plan of [...] documented as of this encounter Care Teams Filament Tester Relationship Specialty Start Date End Date Pcp, Unknown PCP - General 10/22/21 11/03/21 Hayden Britt MD [address] [place] [address] [place] [address] PCP - General Internal Medicine 11/04/21 documented as of this encounter Additional Source Comments The information contained in this document represents components of the legal health record. It is not the complete legal health record.[facility]
== END 2025-07-02 15:24 | disposition home or self-care (01) ==
LOC: HO.HMCHD 14:30
PROVIDERS: PCP Internal Medicine; Visit Provider Physician Assistant Medical
DX: K43.9 Ventral hernia without obstruction or gangrene (principal); K74.60 Unspecified cirrhosis of liver; K21.9 Gastro-esophageal reflux disease without esophagitis

== ENCOUNTER → 2025-07-02 14:30 | Outpatient (BNVA) | payer OTHER, SELFPAY | PROVIDERS: PCP Internal Medicine; Visit Provider Physician Assistant Medical | DX: F10.21 Alcohol dependence, in remission (principal); K74.60 Unspecified cirrhosis of liver; K21.9 Gastro-esophageal reflux disease without esophagitis; K43.9 Ventral hernia without obstruction or gangrene; Z79.899 Other long term (current) drug therapy | CPT/HCPCS: 96127; 99212 ==

== ENCOUNTER 2025-07-08 09:18 | Day surgery (SDC) | payer OTHER, SELFPAY ==
[2025-07-01 10:06] VITALS: BMI 27.8
--- NOTE | 2025-07-01 11:21 | HO.ANESPROP2 ---
Documented by User: Rosa Quinones NP 07/08/25 12:29 HPI - Anesthesia Eval Consult details Narrative: 39 yr old male for Repair Hernia Epigastric Reducible with possible mesh Saw PCP on 07/02/25, provider stated pt is to go for surgery after attending clearance. [place] text sent to her for clarification however agree labs & EKG are stable. H/O alcoholic liver cirrhosis with Grade I esophageal varices: sober for 3 years, follows with [facility]; CBC, CMP updated 06/13/25 *see below, last INR ?05/2024 was 1.1; EGD 07/2024 showed Grade I esophageal varices, portal hypertensive gastropathy. Smokes cigarettes & marijuana PMFSH Active Problems Active Problems: All Active Problems Ventral hernia (Acute) Epigastric hernia (Acute) Liver cirrhosis (Acute) Past Medical History Medical History GERD without esophagitis History of MRSA infection Esophageal varices Febrile seizures Sleep apnea Asthma Seasonal allergies Epigastric hernia Vocal cord polyp Liver cirrhosis Family History Family History Mother Cancer Father No problems noted. Surgical History Surgical History H/O colonoscopy History of esophagogastroduodenoscopy (EGD) Hx of tooth extraction History of ankle surgery Social History Social History Housing: House Are you a primary dog daycare provider to a significant other at home: No Do you presently have visiting nurse or other home services: No Alcohol intake: former Patient Tobacco Use Status: Current everyday Tobacco user Tobacco use type: Cigarette Cigarette Packs Per Day: 0.25 Cigarettes Per Day: 3 e-Cigarette/Vaping Use: Currently Using Second Hand Smoke Exposure: Yes Use of substances other than those prescribed or required for medical reasons: Yes Substance Use Type: Marijuana Substance Use Frequency: Daily Have you been hit, kicked, punched, or otherwise hurt by someone within the past year? If so, by whom?: No Are you DNR?: No Advance Directives: No Advance Directives Information Provided: Yes Advance Directives on File: No Poor oral hygiene: Yes service: No Current occupational status: unemployed Cognitive needs: No Hearing needs: No Vision needs: Yes (rx glasses) Meds Allergies Allergy/AdvReac Type Severity Reaction Status Date / Time apple Allergy Itching Verified 07/02/25 14:35 avocado Allergy Itching Verified 07/02/25 14:35 morphine Allergy Unknown Verified 07/02/25 14:35 tree nut Allergy Itching Verified 07/02/25 14:35 Home Medications ?Medication ?Instructions ?Recorded ?Confirmed ?Last Taken ?Type omeprazole 20 mg capsule,delayed 20 mg PO QAM 01/08/25 07/08/25 07/08/25 07:00 History release Exam Height,Weight and Vital Signs: Height 5 ft 11 in Weight 90.265 kg Pertinent Lab Results Pertinent Lab Results: Laboratory Tests 06/13/25 10:29 WBC 4.4 L RBC 4.53 L Hgb 13.9 L Hct 40.5 L Plt Count 96 L Sodium 141 Potassium 3.6 Chloride 109 H Carbon Dioxide 27 BUN 8 L Creatinine 0.64 Narrative Narrative: EKG 06/13/25 Vent. Rate : 59 BPM Atrial Rate : 59 BPM P-R Int : 166 ms QRS Dur : 104 ms QT Int : 434 ms P-R-T Axes : 57 -7 47 degrees QTcB Int : 429 ms Sinus bradycardia Otherwise normal ECG No previous ECGs available Documented by User: Anatoly Valencia MD 07/08/25 13:12 [facility] Past Medical History Medical History GERD without esophagitis History of MRSA infection Esophageal varices Febrile seizures Sleep apnea Asthma Seasonal allergies Epigastric hernia Vocal cord polyp Liver cirrhosis Family History Family History Mother Cancer Father No problems noted. Family history of problems with anesthesia: No Surgical History Surgical History H/O colonoscopy History of esophagogastroduodenoscopy (EGD) Hx of tooth extraction History of ankle surgery History of Problems with Anesthesia: No Social History Social History Housing: House Are you a primary dog daycare provider to a significant other at home: No Do you presently have visiting nurse or other home services: No Alcohol intake: former Patient Tobacco Use Status: Current everyday Tobacco user Tobacco use type: Cigarette Cigarette Packs Per Day: 0.25 Cigarettes Per Day: 3 e-Cigarette/Vaping Use: Currently Using Second Hand Smoke Exposure: Yes Use of substances other than those prescribed or required for medical reasons: Yes Substance Use Type: Marijuana Substance Use Frequency: Daily Have you been hit, kicked, punched, or otherwise hurt by someone within the past year? If so, by whom?: No Are you DNR?: No Advance Directives: No Advance Directives Information Provided: Yes Advance Directives on File: No Poor oral hygiene: Yes service: No Current occupational status: unemployed Cognitive needs: No Hearing needs: No Vision needs: Yes (rx glasses) Meds Allergies Allergy/AdvReac Type Severity Reaction Status Date / Time apple Allergy Itching Verified 07/02/25 14:35 avocado Allergy Itching Verified 07/02/25 14:35 morphine Allergy Unknown Verified 07/02/25 14:35 tree nut Allergy Itching Verified 07/02/25 14:35 Home Medications ?Medication ?Instructions ?Recorded ?Confirmed ?Last Taken ?Type omeprazole 20 mg capsule,delayed 20 mg PO QAM 01/08/25 07/08/25 07/08/25 07:00 History release Exam Exam Date and Time: 07/08/25 Airway Mallampati Class: III TM Dist: >3cm Neck ROM: Full Denture: Upper and Lower Loose/Missing/Broken Teeth: Yes, Upper and Lower Heart: rrr Lungs: ctab vesicular Assessment and Plan Assessment Anesthesia Assessment: Anesthesia Plan Discussed, Smoking Cess. Discussed and Chart Reviewed Final Anesthetic Review Family History of Problems with Anesthesia: No History of Problems with Anesthesia: No NPO: Yes ASA Class: III Final Preanesthetic Review: No Changes in Pt Med Stat, Meds/Allgs Chart Reviewed, Consent Obtained/Reviewed and Anes Risks/Benef Reviewed Patient Risk: Intermediate Procedure Risk: Low Anesthetic Plan Anesthetic Plan: GA Disposition: Standard PACU
[2025-07-08 09:27] VITALS: BMI 28.0
[2025-07-08 09:42] VITALS: BP 129/76; PULSE 81; RESP 16; TEMP 37.3; O2SAT 96
[2025-07-08] MEDS: Lactated Ringers 1,000 ML 100 ML IVCONT (09:46)
--- NOTE | 2025-07-08 13:16 | MHC.SHP ---
Pre-Procedural Eval Section A - 24 Hr Update-Section A only Date of Service: 07/08/25 Section B - Complete if H&P > 30 days Chief Complaint: Ventral hernia without obstruction or gangrene Details of Present Illness: Reducible epigastric hernia Relevant Family History (Specify if Yes): No Relevant Social History: None Present Medications: see Short Stay Collaborative assessment Medical History: Significant History (History of EtOH, reflux disease) Allergies: Allergies Allergy/AdvReac Type Severity Reaction Status Date / Time apple Allergy Itching Verified 07/02/25 14:35 avocado Allergy Itching Verified 07/02/25 14:35 morphine Allergy Unknown Verified 07/02/25 14:35 tree nut Allergy Itching Verified 07/02/25 14:35 Review of Systems Sugical H&P ROS: Negative: Constitution, Cardiovascular and Respiratory Exam Surgical H&P Exam: Normal: Heart and Normal: Lungs and Significant Findings: Abdomen (Epigastric hernia reducible) Plan Diagnosis/Plan: Unchanged I have reviewed the history and physical and performed a pertinent physical examination on my patient. No changes have occurred unless specified. Time Spent With Patient Time: Total time managing care of this patient today ____ minutes.
[2025-07-08 13:39] LABS: INTERNATIONAL NORM RATIO 1.3 (0.9-1.1); Prothrombin Time 14.4 SEC (10.9-12.4)
--- NOTE | 2025-07-08 15:20 | W.PM.OPN ---
Operative Note Operative Note Date of Service: 07/08/25 Narrative: Preop diagnosis: supraumbilical hernia Preop diagnosis:: Large, engorged venous network in the subcutaneous layer, unable to identify fascia reducible bowel Procedure: Exploration of abdominal wall on the supraumbilical area under anesthesia Surgeon: Hayden Avendano MD child care assistant: OMID Singletary The patient is a 39-year-old male who had it appeared to be a mass on the supraumbilical area consistent with possible hernia. He wanted to proceed with the repair. He understood the technique of the planned procedure as was the risks,benefits, and alternatives. He was brought to the operating room he was placed supine under general anesthesia via endotracheal tube. The abdomen was prepped and draped in the usual sterile fashion. A surgical time-out was done. The patient received cefazolin 2 g IV preoperatively I infiltrated the area with lidocaine 1%. I made a midline incision in the supraumbilical area with a blade 15. This was carried down carefully through the full-thickness of the skin and immediately, we encountered what appeared to be large engorged tubular structures in the superficial subcutaneous layer. I gently carefully dissected this off of the rest of the subcutaneous layer but this appeared to continued to appear the immediate adjacent areas. I therefore extended the incision on the skin cephalad with a blade 15. I divided through the subcutaneous layer away from the initial incision. We continued to see this tubular structures. This appeared to be engorged and interconnecting with other structures in the area. This did not appeared to be all bowel loops. In view of the risk of encountering what maybe large, engorged veins from his history of cirrhosis, I decided that it may be safest not to continue dissecting. We therefore decided to close I will leave these tubular structures in place. I reapposed superficial subcutaneous tissue over these tubular structures with Polysorb 3-0 simple interrupted sutures and closed the incision with running Polysorb 4-0 subcuticular running sutures. Dressings were applied and the procedure was completed The patient the tolerated procedure well. There were no immediate complication . He was extubated without difficulty and transferred to the recovery room with stable vital signs. There was minimal blood loss. I will order for a CAT scan the abdomen and pelvis to further define these area and investigate as to what these large network of tubular structures represent.
[2025-07-08 15:23] VITALS: BP 135/77; PULSE 90; RESP 10; TEMP 36.4; O2SAT 96
[2025-07-08 15:28] VITALS: BP 128/71; PULSE 81; RESP 13; O2SAT 96
[2025-07-08 15:33] VITALS: BP 130/80; PULSE 81; RESP 12; O2SAT 95
[2025-07-08 15:38] VITALS: BP 132/79; PULSE 81; RESP 17; TEMP 36.4; O2SAT 95
== END 2025-07-08 16:09 | disposition home or self-care (01) ==
PROVIDERS: Nurse Practitioner; PCP Internal Medicine; Visit Provider Surgery
PROC: (CPT 49000; principal; 2025-07-08 11:40)
DX: R19.05 Periumbilic swelling, mass or lump (principal); R10.9 Unspecified abdominal pain; K74.60 Unspecified cirrhosis of liver; J38.1 Polyp of vocal cord and larynx; R79.1 Abnormal coagulation profile; Z98.890 Other specified postprocedural states; Z56.0 Unemployment, unspecified; F17.210 Nicotine dependence, cigarettes, uncomplicated
CPT/HCPCS: 49000; 36415; 85610; J0330; J0665; J0690; J1100; J1171; J1885; J2003; J2004; J2250; J2371; J2405; J2704; J3010

== ENCOUNTER → 2025-07-08 09:18 | Outpatient (BNV) | payer OTHER, SELFPAY | PROVIDERS: PCP Internal Medicine; Visit Provider Surgery | DX: K43.9 Ventral hernia without obstruction or gangrene (principal); I86.4 Gastric varices | CPT/HCPCS: 49000 ==

== ENCOUNTER 2025-07-21 10:10 | Outpatient (AMB) | payer OTHER, SELFPAY ==
--- NOTE | 2025-07-21 10:17 | MHC.OFFVIS ---
Vital Signs 07/21/25 10:23 Weight 205 lb BP 137/69 Blood Pressure Location Rt brachial Position Sitting Pulse 73 Intake Visit Reasons: s/p epigastric hernia poss mesh Intake Note: Patient here s/p Exploration of abdominal wall on the supraumbilical area under anesthesia. Patient c/o: itchy rash where bandage used to be. Steri strips still in place. Denies oozing, bleeding. Surgery (): 07-08-2025 Partnership Manager Required: No Accompanied by: Self / Same As Patient Allergies apple Allergy (Verified 07/21/25 10:23) Itching avocado Allergy (Verified 07/21/25 10:23) Itching morphine Allergy (Verified 07/21/25 10:23) Unknown tree nut Allergy (Verified 07/21/25 10:) Itching HPI Comments Details: 39 year old male here for a wound check. He initially presented with a mass on the supraumbilical area consistent with possible hernia and presented for repair. He underwent exploration of abdominal wall on the supraumbilical area under anesthesia on 07/08/[address] Avendano. He was found to have a large, engorged venous network in the subcutaneous layer, and we were unable to identify fascia or reducible bowel and the subcutaneous tissue and skin were then closed. This was discussed with him post operatively by Dr. Avendano and a CT scan was ordered to evaluate the area. He states this is scheduled for August 21. He reports taking a quarter to a half of oxycodone for a few days after the procedure. He has been doing overall well. He had some irritation from the tape but this is improving. He is tolerating a solid diet and moving his bowels without difficulty. He has no concerns. [facility] Medical History (Updated 07/12/25 @ 10:56 by Hayden Avendano MD) Abdominal wall mass GERD without esophagitis History of MRSA infection Esophageal varices Febrile seizures Sleep apnea Asthma Seasonal allergies Epigastric hernia Vocal cord polyp Liver cirrhosis Surgical History (Updated 07/21/25 @ 08:02 by RADHA Longo) S/P epigastric hernia repair, follow-up exam (07/08/25) H/O colonoscopy History of esophagogastroduodenoscopy (EGD) Hx of tooth extraction History of ankle surgery Family History Mother Cancer Father No problems noted. Social History Housing: House Are you a primary healthcare science specialist to a significant other at home: No Do you presently have visiting nurse or other home services: No Alcohol intake: former Patient Tobacco Use Status: Current everyday Tobacco user Tobacco use type: Cigarette Cigarette Packs Per Day: 0.25 Cigarettes Per Day: 3 e-Cigarette/Vaping Use: Currently Using Second Hand Smoke Exposure: Yes Substance Use Type: Marijuana service: No Current occupational status: unemployed Cognitive needs: No Hearing needs: No Vision needs: Yes (rx glasses) Review of Systems Const Denies chills and Denies fever(s) ENT Denies dizziness Card Denies dyspnea Resp Denies dyspnea GI Reports as per HPI, Denies nausea and Denies vomiting Skin/Breast Reports as per HPI and Denies jaundice Neuro Denies dizziness Physical Exam Vital Signs: Last Vital Signs Pulse 73 07/21/25 10:23 BP 137/69 07/21/25 10:23 Const General: comfortable, no acute distress and alert Orientation/consciousness: patient oriented x3 Resp Effort & Inspection: normal respiratory effort and able to speak in complete sentences GI Other: mildly protuberant abdomen soft, nontender incision well approximated and well healed, no erythema at incision site, some irritation of skin not immediately surrounding the incision but where the dressing was in place Percussion: Yes normal to percussion Skin Other: warm and dry General skin exam: no rashes or lesions noted Neuro General: patient oriented x3 and moves all extremities Assessment & Plan Assessment & Plan (1) Abdominal wall mass: Code(s): R22.2 - Localized swelling, mass and lump, trunk Category: Medical Plan 39 year old male s/p exploration of abdominal wall on the supraumbilical area under anesthesia on 07/08/25. Unfortunately, he presented for a hernia repair but was found to have large, engorged venous network in the subcutaneous layer without bowel or fascia identifiable and the planned procedure was aborted. This was again discussed with him. His incision is healing well without evidence of infection. He has a CT scan on 08/21/25 to further define this area. He is to return following the imaging for results, or sooner if he develops concerns. Patient comfortable with plan. Coding Level of Care Code Global (88983) Diagnoses Abdominal wall mass R22.2
[2025-07-21 10:23] VITALS: BP 137/69; PULSE 73
--- OUTSIDE RECORDS SUMMARY | 2025-07-21 11:53 | XMS_ITS | Encounter Summary ---
Author Organization [facility] Address [address] [place] [address] Phone Care Team Providers Care Biological Chemist Name Role Phone Unknown, Unknown Primary Care Provider Indio duckworth Pcp, Unknown Primary Care Provider Hayden Chu MD Primary Care Provider Encounter Details Date Type Department Care Team (Late st Contact Info) Description 10/13/2021 Procedure Pass [facility] Cardiovascular And Interventional Radiology 30 [place] [address] Social History Tobacco Use Types Packs/Day Years [...] documented as of this encounter Care Teams Biological Chemist Relationship Specialty Start Date End Date Unknown, Unknown, PCP - General 11/10/17 10/21/21 Pcp, Unknown PCP - General 10/22/21 11/03/21 Hayden Britt MD [address] [place] [address] [place] [address] PCP - General Internal Medicine 11/04/21 documented as of this encounter Additional Source Comments The information contained in this document represents components of the legal health record. It is not the complete legal health record.[facility]
--- OUTSIDE RECORDS SUMMARY | 2025-07-21 11:53 | XMS_ITS | Encounter Summary ---
Author Organization [facility] Address [address] [place] [phone] Phone Care Team Providers Care Egg Factory Worker Name Role Phone Pcp, Unknown Primary Care Provider Hayden Chu MD Primary Care Provider Encounter Details Date Type Department Care Team (Late st Contact Info) Description 10/30/2021 Procedure Pass [facility] Cardiovascular And Interventional Radiology 30 [place] [address] Social History Tobacco Use Types Packs/Day Years [...] 11/02/2021 11:26 PM Mannie Syed RN * [place] Suicide Severity Rating Scale (Screener/Recent Self-Report) Question [...] documented as of this encounter Care Teams Egg Factory Worker Relationship Specialty Start Date End Date Pcp, Unknown PCP - General 10/22/21 11/03/21 Hayden Britt MD [address] [place] [address] [place] [address] PCP - General Internal Medicine 11/04/21 documented as of this encounter Additional Source Comments The information contained in this document represents components of the legal health record. It is not the complete legal health record.[facility]
--- OUTSIDE RECORDS SUMMARY | 2025-07-21 11:53 | XMS_ITS | Encounter Summary ---
Author Organization [facility] Address [address] [place] [address] Phone Care Team Providers Care Employment Specialist/Program Manager Name Role Phone Hayden Britt MD Primary Care Provider Encounter Details Date Type Department Care Team (Late st Contact Info) Description 04/20/2022 Procedure Pass [facility] Endoscopy Admitting Dept Virtual Department 30 [place] [address] Social History Tobacco Use Types Packs/Day Years [...] on filedocumented in this encounter Care Teams Employment Specialist/Program Manager Relationship Specialty Start Date End Date Hayden Britt MD [address] [place] [address] [place] [address] PCP - General Internal Medicine 11/04/21 documented as of this encounter Additional Source Comments The information contained in this document represents components of the legal health record. It is not the complete legal health record.[facility]
--- OUTSIDE RECORDS SUMMARY | 2025-07-21 11:54 | XMS_ITS | Encounter Summary ---
Author Organization [facility] Address [address] [place] [address] Phone Care Team Providers Care Supervisor Assembly Name Role Phone Hayden Britt MD Primary Care Provider Encounter Details Date Type Department Care Team (Latest Contact Info) Description 09/09/2022 Transcribe Orders Virtual Department 30 [place] [address] Fabrice Mcduffie MD [address] [place] [phone] [email or web address] Hepatoma (Primary Dx) Social History Tobacco Use [...] primary documented in this encounter Care Teams Supervisor Assembly Relationship Specialty Start Date End Date Hayden Britt MD [address] [place] [address] [place] [address] PCP - General Internal Medicine 11/04/21 documented as of this encounter Additional Source Comments The information contained in this document represents components of the legal health record. It is not the complete legal health record.[facility]
--- OUTSIDE RECORDS SUMMARY | 2025-07-21 11:54 | XMS_ITS | Clinical Summary ---
Author Organization [facility] Address [address] [place] [address] Phone Care Team Providers Care Dry Janitor Name Role Phone Hayden Britt MD Primary [...] Department Care Team Description 06/27/2025 Orders Only [facility] [address] [place] [address] Fabrice Mcduffie MD Alcoholic cirrhosis of liver with ascites (Primary Dx) 06/25/2025 8:05 AM EDT - 06/25/2025 11:59 PM EDT Hospital Encounter [facility], [address] [address] Fabrice Mcduffie MD Discharge Disposition: Home or Self Care 04/29/2025 Transcribe Orders Virtual Department [address] [place] [address] Fabrice Mcduffie MD Alcoholic cirrhosis, unspecified whether [...] PANEL 08/15/2027 08/15/2022 HEPATITIS C SCREENING Completed 08/15/2022 , 08/15/2022, 08/15/2022, Additional history exists HIV ONE-TIME SCREENING (18-65 YEARS) Completed 08/15/2022 HIB VACCINES Aged Out No longer eligi ble based on patient's age to complete this topic MENINGOCOCCAL VACCINES (ACWY) Aged Out No longer eligible based on patient's age to complete this topic MENINGOCOCCAL VACCINES (B) Aged Out N o longer eligible based on patient's age to complete this topic Medical Devices Implanted Type Area Quality Auditor Device Identifier Shelf Expiration Date Model / Serial / Lot Left Ankle Plate And Screws Procedures Procedure Name Priority Date/Time Associated Diagnosis Comments US ABDOMEN LIMITED SINGLE ORGAN Routine 06/25/2025 9:00 AM EDT Alcoholic cirrhosis, unspecified whether ascites present COMPREHENSIVE METABOLIC PANEL (CMP) Routine 09/17/2024 9:49 AM EST Alcoholic cirrhosis [...] clinician's provided indication for this examination in [facility]: Outside Radiology Order; cirrhosis TECHNIQUE: US [...] clinician's provided indication for this examination in [facility]:Outside Radiology Order; cirrhosis TECHNIQUE: US Abdominal [...] EST) SODIUM 141 133 - 146 mmol/L [facility] POTASSIUM 3.7 3.3 - 5.1 mmol/L [facility] CHLORIDE 107 96 - 108 mmol/L [facility] CO2 27 21 - 35 mmol/L [facility] BUN 9 6 - 19 mg/dL [facility] CREATININE 0.50 0.5 - 1.5 mg/dL [facility] GLUCOSE 69(L) 70 - 99 mg/dL [facility] ALBUMIN 3.9 3.9 - 4.8 g/dL [facility] TOTAL PROTEIN 6.7 6.5 - 8.0 g/dL [facility] CALCIUM 9.3 8.4 - 10.3 mg/dL [facility] ALKALINE PHOSPHATASE 132(H) 39 - 117 U/L [facility] TOTAL BILIRUBIN 1.3(H) 0.0 - 1.2 mg/dL [facility] AST 58(H) 0 - 37 U/L [facility] ALT 52(H) 0 - 40 U/L [facility] GLOBULIN 2.8 1 - 4.8 g/dL [facility] EGFR >120 >59 mL/min/1.7 3m2 [facility] Comment:Estimated glomerular filtration rate calculated using the CKD-EPI refit equation. ANION GAP 11 10 - 20 mmol/L [facility] Blood 09/17/2024 9:49 AM EST 09/17/2024 9:52 AM EST Brenda Aguiar NP LAB BLOOD BKR ORDERABLES Final Result [facility] [address] [place] [address] * Hepatitis C antibody, qualitative (08/15/2022 9:57 AM EST) HCV ANTIBODY Negative Negative [facility] Comment:Antibodies to HCV no t detected. Does not exclude the possibility of exposure to HCV. 08/15/2022 9:57 AM EST 08/15/2022 12:24 PM EST Briana Allen NOISE ABATEMENT ENGINEER LAB BLOOD BKR ORDERABLES F inal Result Performing Organization Address [facility] Co de Phone Number [address] [address] * (ABNORMAL) Lipid panel (08/15/2022 9:57 AM EST) HDL 68 35 - 100 mg/dL [facility] CHOLESTEROL 309(H) <200 mg/dL [facility] TRIGLYCERIDES 113 40 - 150 mg/dL [facility] LDL 218(H) 50 - 129 mg/dL [facility] CARDIAC RISK RATIO 4.5 0.0 - 5.0 [facility] NON-HDL CHOLESTEROL 241 mg/dL [facility] Comment:NCEP ATP III guideli lashon suggest a non-HDL cholesterol goal 30 mg/dl higher than the patient-specific LDL goal. 08/15/2022 9:57 AM EST 08/15/2022 12:23 PM EST Briana Allen NOISE ABATEMENT ENGINEER LAB BLOOD BKR ORDERABLES F inal Result [address] [address] from Last 3 Months or Most Recently Relevant to Health Maintenance Insurance [facility] [place] [address] [place] [address] [place] [address] [place] [address] [place] [address] [place] [address] [place] [place] [address] ACO Advance Directives For more information, please contact: [phone] (9AM - 5PM [place], Monday-Monday) * Full Code (Latest Code Status on File) Date Activated Date Inactivated Comments 10/29/2021 1:17 AM Question Answer Comments Code Status Confirmed With: Patient * Full Code Date Activated Date Inactivated Comments 10/12/2021 10:15 PM 10/29/2021 1:17 AM Question Answer Comments Code Status Confirmed With: Patient Care Teams Dry Janitor Relationship Specialty Start Date End Date Hayden Britt MD [address] [place] [address] [place] [address] PCP - General Internal Medicine 11/04/21 Additional Source Comments The information contained in this document represents components of the legal health record. It is not the complete legal health record.[facility]
--- OUTSIDE RECORDS SUMMARY | 2025-07-21 11:54 | XMS_ITS | Encounter Summary ---
Author Organization [facility] Address [address] [place] [address] Phone Care Team Providers Care Spa Supervisor Name Role Phone Hayden Britt MD Primary Care Provider Encounter Details Date Type Department Care Team (Late st Contact Info) Description 10/12/2022 Procedure Pass [facility], [address] [address] Social History Tobacco Use Types Packs/Day Years [...] on filedocumented in this encounter Care Teams Spa Supervisor Relationship Specialty Start Date End Date Hayden Britt MD [address] [place] [address] [place] [address] PCP - General Internal Medicine 11/04/21 documented as of this encounter Additional Source Comments The information contained in this document represents components of the legal health record. It is not the complete legal health record.[facility]
--- OUTSIDE RECORDS SUMMARY | 2025-07-21 11:54 | XMS_ITS | Encounter Summary ---
Author Organization [facility] Address [address] [place] [address] Phone Care Team Providers Care V Belt Curer Name Role Phone Hayden Britt MD Primary Care Provider Reason for Referral * MRI/CAT Scan - Closed Specialty Diagnoses / Procedures Referred By Contac t Referred To Contact Radiology Diagnoses Hepatic cirrhosis, unspecified hepatic cirrhosis type, unspecified whether ascites present Procedures CT Abdomen/Pelvis CHG CT SCAN,ABDOMENT AND PELVIS,W CONTRAST Fabrice Mcduffie MD [address] [place] [address] Phone: tel: fax: mailto:[email or web address] Referral ID Status Reason Start Date Expiration Date Visits Re quested Visits Authorized [id number] Closed 10/29/2023 04/26/2024 1 1 Encounter Details Date Type Department Care Team (Latest Contact Info) Description 10/31/2023 Transcribe Orders Virtual Department [address] [place] [address] Fabrice Mcduffie MD [address] [address] [email or web address] Hepatic cirrhosis, unspecified hepatic cirrhosis type, unspecified [...] present documented in this encounter Care Teams V Belt Curer Relationship Specialty Start Date End Date Hayden Britt MD [address] [place] [address] [place] [address] PCP - General Internal Medicine 11/04/21 documented as of this encounter Additional Source Comments The information contained in this document represents components of the legal health record. It is not the complete legal health record.[facility]
--- OUTSIDE RECORDS SUMMARY | 2025-07-21 11:54 | XMS_ITS | Encounter Summary ---
Author Organization [facility] Address [address] [place] [address] Phone Care Team Providers Care Anthropological Linguist Name Role Phone Hayden Britt MD Primary Care Provider Encounter Details Date Type Department Care Team (Latest Contact Info) Description 05/26/2023 Transcribe Orders [facility] [address] [place] [address] Fabrice Mcduffie MD [address] [address] [email or web address] Alcoholic cirrhosis of liver with ascites (Primary [...] EDT) PT 14.7(H) 10.2 - 12.9 sec [facility] INR 1.3(H) 0.9 - 1.1 [facility] Comment:Therapeutic range fo r oral Vitamin K antagonists: 2.0-3.5 Blood 05/26/2023 9:19 AM EDT 05/26/2023 9:22 AM EDT us Fabrice Mcduffie MD LAB BLOOD BKR ORDERABLES F inal Result Performing Organization Address City/State/[facility] Co de Phone Number [address] [phone] * (ABNORMAL) Comprehensive metabolic panel (05/26/2023 9:19 AM EDT) SODIUM 141 133 - 146 mmol/L [facility] POTASSIUM 4.0 3.3 - 5.1 mmol/L [facility] CHLORIDE 105 96 - 108 mmol/L [facility] CO2 27 21 - 35 mmol/L [facility] BUN 8 6 - 19 mg/dL [facility] CREATININE 0.60 0.5 - 1.5 mg/dL [facility] GLUCOSE 90 70 - 99 mg/dL [facility] ALBUMIN 4.0 3.9 - 4.8 g/dL [facility] TOTAL PROTEIN 7.1 6.5 - 8.0 g/dL [facility] CALCIUM 9.0 8.4 - 10.3 mg/dL [facility] ALKALINE PHOSPHATASE 173(H) 39 - 117 U/L [facility] TOTAL BILIRUBIN 2.2(H) 0.0 - 1.2 mg/dL [facility] AST 59(H) 0 - 37 U/L [facility] ALT 39 0 - 40 U/L [facility] GLOBULIN 3.1 1 - 4.8 g/dL [facility] EGFR >120 >59 mL/min/1.7 3m2 [facility] Comment:Estimated glomerular filtration rate calculated using the CKD-EPI refit equation. ANION GAP 13 10 - 20 mmol/L [facility] Blood 05/26/2023 9:19 AM EDT 05/26/2023 9:22 AM EDT Fabrice Mcduffie MD LAB BLOOD BKR ORDERABLES F inal Result Performing Organization Address City/[facility]/ZIP Co de Phone Number [address] [address] * (ABNORMAL) CBC (05/26/2023 9:19 AM EDT) WBC 6.21 4.00 - 11.00 K/uL [facility] RBC 4.39 4.23 - 5.82 M/uL [facility] HGB 14.3 13.4 - 17.5 g/dL [facility] HCT 42.5 37.0 - 51.0 % [facility] PLT 121(L) 140 - 430 K/uL [facility] MCV 96.8 78.0 - 97.0 fL [facility] MCH 32.6 25.0 - 33.0 pg [facility] MCHC 33.6 32.0 - 36.0 g/dL [facility] RDW 15.9(H) 11.0 - 15.0 % [facility] MPV 9.7 8.4 - 12.8 fl [facility] Blood 05/26/2023 9:19 AM EDT 05/26/2023 9:22 AM EDT us Fabrice Mcduffie MD LAB BLOOD BKR ORDERABLES F inal Result Performing Organization Address City/[facility] Co de Phone Number [address] [phone] * AFP (non-maternal specimens) (05/26/2023 9:19 AM EDT) AFP (NON-MATERNAL) 4.3 <7.9 ng/mL [facility] Comment: Test Methodology Andrae [id number] Patient results determined by assays using different manufacturers or methods may not be comparable. Blood 05/26/2023 9:19 AM EDT 05/26/2023 9:22 AM EDT Fabrice Mcduffie MD LAB BLOOD BKR ORDERABLES F inal Result Performing Organization Address City/State/[facility] Co de Phone Number [facility] [address] [place] [address] documented in this encounter Visit Diagnoses Diagnosis Alcoholic cirrhosis of liver with ascites- Primary documented in this encounter Care Teams Anthropological Linguist Relationship Specialty Start Date End Date Hayden Britt MD [address] [place] [address] [place] [address] PCP - General Internal Medicine 11/04/21 documented as of this encounter Additional Source Comments The information contained in this document represents components of the legal health record. It is not the complete legal health record.[facility]
--- OUTSIDE RECORDS SUMMARY | 2025-07-21 11:54 | XMS_ITS | Encounter Summary ---
Author Organization [facility] Address [address] [place] [address] Phone Care Team Providers Care Hearing Dog Trainer Name Role Phone Hayden Britt MD Primary Care Provider Encounter Details Date Type Department Care Team (Latest Contact Info) Description 03/08/2022 Transcribe Orders Virtual Department [address] [place] [address] Fabrice Mcduffie MD [address] [place] [address] [email or web address] Alcoholic cirrhosis, unspecified whether ascites present (Primary [...] present documented in this encounter Care Teams Hearing Dog Trainer Relationship Specialty Start Date End Date Hayden Britt MD NPI: [id number] [place] [address] [place] [address] PCP - General Internal Medicine 11/04/21 documented as of this encounter Additional Source Comments The information contained in this document represents components of the legal health record. It is not the complete legal health record.[facility]
--- OUTSIDE RECORDS SUMMARY | 2025-07-21 11:54 | XMS_ITS | Encounter Summary ---
Author Organization [facility] Address [address] [place] [address] Phone Care Team Providers Care Nickel Plant Operator Name Role Phone Unknown, Unknown Primary Care Provider Indio duckworth Pcp, Unknown Primary Care Provider Hayden Chu MD Primary Care Provider Encounter Details Date Type Department Care Team (Late st Contact Info) Description 10/12/2021 Procedure Pass [facility], Ct Scan - [facility] [address] [place] [address] Social History Tobacco Use Types Packs/Day Years [...] 10/12/2021 11:00 PM Abel Pike RN * [place] Suicide Severity Rating Scale (Screener/Recent Self-Report) Question [...] documented as of this encounter Care Teams Nickel Plant Operator Relationship Specialty Start Date End Date Unknown, Unknown, MD PCP - General 11/10/17 10/21/21 Pcp, Unknown PCP - General 10/22/21 11/03/21 Hayden Britt MD [address] [place] [address] [place] [address] PCP - General Internal Medicine 11/04/21 documented as of this encounter Additional Source Comments The information contained in this document represents components of the legal health record. It is not the complete legal health record.[facility]
--- OUTSIDE RECORDS SUMMARY | 2025-07-21 11:54 | XMS_ITS | Encounter Summary ---
Author Organization [facility] Address [address] [place] [address] Phone Care Team Providers Care Outside Salesperson Name Role Phone Hayden Britt MD Primary Care Provider Reason for Referral * MRI/CAT Scan - Closed Specialty Diagnoses / Procedures Referred By Contac t Referred To Contact Radiology Diagnoses Liver lesion Procedures MRI Abdomen CHG MRI, ABDOMEN, COMBO Fabrice Mcduffie MD Phone: tel: fax: mailto:[email or web address] Referral ID Status Reason Start Date Expiration Date Visits Re quested Visits Authorized [id number] Closed 10/12/2022 04/10/2023 1 1 Encounter Details Date Type Department Care Team (Latest Contact Info) Description 10/12/2022 Transcribe Orders Virtual Department [address] [place] [address] Fabrice Mcduffie MD [address] [address] Liver lesion (Primary Dx) Social History Tobacco [...] liver documented in this encounter Care Teams Outside Salesperson Relationship Specialty Start Date End Date Hayden Britt MD [address] [place] [address] [place] [address] PCP - General Internal Medicine 11/04/21 documented as of this encounter Additional Source Comments The information contained in this document represents components of the legal health record. It is not the complete legal health record.[facility]
--- OUTSIDE RECORDS SUMMARY | 2025-07-21 11:54 | XMS_ITS | Encounter Summary ---
Author Organization [facility] Address [address] [place] [address] Phone Care Team Providers Care Engrosser Name Role Phone Unknown, Unknown Primary Care Provider Indio duckworth Pcp, Unknown Primary Care Provider Hayden Chu MD Primary Care Provider Encounter Details Date Type Department Care Team (Late st Contact Info) Description 10/13/2021 Procedure Pass [facility] [address] [place] [address] Social History Tobacco Use Types Packs/Day Years [...] documented as of this encounter Care Teams Engrosser Relationship Specialty Start Date End Date Unknown, Unknown, PCP - General 11/10/17 10/21/21 Pcp, Unknown PCP - General 10/22/21 11/03/21 Hayden Britt MD [address] [place] [address] [place] [address] PCP - General Internal Medicine 11/04/21 documented as of this encounter Additional Source Comments The information contained in this document represents components of the legal health record. It is not the complete legal health record.[facility]
--- OUTSIDE RECORDS SUMMARY | 2025-07-21 11:55 | XMS_ITS | Encounter Summary ---
Author Organization [facility] Address [address] [place] [address] Phone Care Team Providers Care Senior Trainer Name Role Phone Hayden Britt MD Primary Care Provider Encounter Details Date Type Department Care Team (Latest Contact Info) Description 04/29/2025 Transcribe Orders Virtual Department [address] [place] [address] Fabrice Mcduffie MD [address] [place] [address] [email or web address] Alcoholic cirrhosis, unspecified whether ascites present (Primary [...] present documented in this encounter Care Teams Senior Trainer Relationship Specialty Start Date End Date Hayden Britt MD [address] [place] [address] [place] [address] PCP - General Internal Medicine 11/04/21 documented as of this encounter Additional Source Comments The information contained in this document represents components of the legal health record. It is not the complete legal health record.[facility]
--- OUTSIDE RECORDS SUMMARY | 2025-07-21 11:55 | XMS_ITS | Encounter Summary ---
Author Organization [facility] Address [address] [place] [address] Phone Care Team Providers Care Lgsw Name Role Phone Hayden Britt MD Primary Care Provider Encounter Details Date Type Department Care Team (Late st Contact Info) Description 10/27/2023 Procedure Pass [facility] [address] [place] [address] Social History Tobacco Use Types Packs/Day Years [...] on filedocumented in this encounter Care Teams Lgsw Relationship Specialty Start Date End Date Hayden Britt MD [address] [place] [address] [place] [address] PCP - General Internal Medicine 11/04/21 documented as of this encounter Additional Source Comments The information contained in this document represents components of the legal health record. It is not the complete legal health record.[facility]
--- OUTSIDE RECORDS SUMMARY | 2025-07-21 11:55 | XMS_ITS | Encounter Summary ---
Author Organization [facility] Address [address] [place] [address] Phone Care Team Providers Care Brass Molder Helper Name Role Phone Hayden Birtt MD Primary Care Provider Encounter Details Date Type Department Care Team (Latest Contact Info) Description 12/14/2021 Transcribe Orders Virtual Department [address] [place] [address] Brenda Aguiar NP [address] [place] [address] Acute liver failure without hepatic coma (Primary [...] Primary documented in this encounter Care Teams Brass Molder Helper Relationship Specialty Start Date End Date Hayden Britt MD [address] [place] [address] [place] [address] PCP - General Internal Medicine 11/04/21 documented as of this encounter Additional Source Comments The information contained in this document represents components of the legal health record. It is not the complete legal health record.[facility]
--- OUTSIDE RECORDS SUMMARY | 2025-07-21 11:55 | XMS_ITS | Encounter Summary ---
Author Organization [facility] Address [address] [place] [address] Phone Care Team Providers Care Diaper Machine Tender Name Role Phone Hayden Britt MD Primary Care Provider Encounter Details Date Type Department Care Team (Latest Contact Info) Description 09/17/2024 Transcribe Orders [facility] [place] [address] [address] Brenda Aguiar NP 10 [place] [address] Alcoholic cirrhosis of liver without ascites (Primary [...] EST) PT 15.2(H) 10.2 - 12.9 sec [facility] INR 1.4(H) 0.9 - 1.1 [facility] Comment:Therapeutic range fo r oral Vitamin K antagonists: 2.0-3.5 Blood 09/17/2024 9:49 AM EST 09/17/2024 9:52 AM EST us Brenda Aguiar NP LAB BLOOD BKR ORDERABLES Final Result Performing Organization Address [facility]/ZIP Co de Phone Number [address] [address] * C-Reactive Protein (09/17/2024 9:49 AM EST) C REACTIVE PROTEIN <3.0 0.0 - 4.0 mg/L [facility] Blood 09/17/2024 9:49 AM EST 09/17/2024 9:52 AM EST Brenda Aguiar NP LAB BLOOD BKR ORDERABLES Final Result Performing Organization Address City/[facility] Co de Phone Number [address] [address] * (ABNORMAL) Comprehensive metabolic panel (09/17/2024 9:49 AM EST) SODIUM 141 133 - 146 mmol/L [facility] POTASSIUM 3.7 3.3 - 5.1 mmol/L [facility] CHLORIDE 107 96 - 108 mmol/L [facility] CO2 27 21 - 35 mmol/L [facility] BUN 9 6 - 19 mg/dL [facility] CREATININE 0.50 0.5 - 1.5 mg/dL [facility] GLUCOSE 69(L) 70 - 99 mg/dL [facility] ALBUMIN 3.9 3.9 - 4.8 g/dL [facility] TOTAL PROTEIN 6.7 6.5 - 8.0 g/dL [facility] CALCIUM 9.3 8.4 - 10.3 mg/dL [facility] ALKALINE PHOSPHATASE 132(H) 39 - 117 U/L [facility] TOTAL BILIRUBIN 1.3(H) 0.0 - 1.2 mg/dL [facility] AST 58(H) 0 - 37 U/L [facility] ALT 52(H) 0 - 40 U/L [facility] GLOBULIN 2.8 1 - 4.8 g/dL [facility] EGFR >120 >59 mL/min/1.7 3m2 [facility] Comment:Estimated glomerular filtration rate calculated using the CKD-EPI refit equation. ANION GAP 11 10 - 20 mmol/L [facility] Blood 09/17/2024 9:49 AM EST 09/17/2024 9:52 AM EST us Brenda Aguiar NP LAB BLOOD BKR ORDERABLES Final Result [address] [address] * (ABNORMAL) CBC (09/17/2024 9:49 AM EST) WBC 4.91 4.00 - 11.00 K/uL [facility] RBC 4.57 4.50 - 5.90 M/uL [facility] HGB 14.7 13.5 - 17.5 g/dL [facility] HCT 42.5 41.0 - 53.0 % [facility] PLT 98(L) 150 - 450 K/uL [facility] Comment:Microscopic estimate : Platelets decreased. MCV 93.0 80.0 - 100.0 fL [facility] MCH 32.2(H) 27.0 - 31.0 pg [facility] MCHC 34.6 32.0 - 36.0 g/dL [facility] RDW 15.2(H) 11.5 - 14.5 % [facility] MPV 10.3 8.4 - 12.0 fL [facility] NRBC 0.00 0.00 /100 WBCs [facility] ABSOLUTE NRBC 0.00 0.00 K/uL [facility] Blood 09/17/2024 9:49 AM EST 09/17/2024 9:52 AM EST Brenda Aguiar NP LAB BLOOD BKR ORDERABLES Final Result [address] [address] * AFP (non-maternal specimens) (09/17/2024 9:49 AM EST) AFP (NON-MATERNAL) 4.1 <7.9 ng/mL [facility] Comment: Test Methodology Andrae e801 Patient results determined by assays using different manufacturers or methods may not be comparable. Blood 09/17/2024 9:49 AM EST 09/17/2024 9:52 AM EST Brenda Aguiar NP LAB BLOOD BKR ORDERABLES Final Result Performing Organization Address City/[facility]/ZIP Co de Phone Number [address] [address] documented in this encounter Visit Diagnoses Diagnosis Alcoholic cirrhosis of liver without ascites- Primary documented in this encounter Care Teams Diaper Machine Tender Relationship Specialty Start Date End Date Hayden Britt MD [address] [place] [address] [place] [address] PCP - General Internal Medicine 11/04/21 documented as of this encounter Additional Source Comments The information contained in this document represents components of the legal health record. It is not the complete legal health record.[facility]
--- OUTSIDE RECORDS SUMMARY | 2025-07-21 11:55 | XMS_ITS | Data Portability ---
Author Organization [place] [facility], Allergy Address [address] [place] [phone] Care Team Providers Care Mobile Home Set Up Person Name Role Phone REBECA MADRIGAL Primary Care Provider [phone] Assessment Encounter Date Assessment Date Assessment LastModified [...] mcg/actuati on nasal spray,suspe nsion 2023 024 [facility] #[id number], [address] [facility], [place], [address], 11:59:09 Patient TargetsNo targets recorded. 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 - [facility] 4 15:16:17 Allergic rhinitis 53304491 Active 2023 DIPESH QUEEN MD [address] [facility],[place] [address], [facility] [place], [phone] , [facility] - [facility] 4 11:57:46 Problem Notes None recorded. Procedures Surgical History Date Name Laterality Status Provider Name and Address Organization Details Recorded Time 4 FOL_Reflux_JM S completed DIPESH SOTELO MD [address] [facility],[place] [address], [place], [address], [facility] - [facility] [place] 02/21/2024 11:57:38 4 excision of lesion of larynx completed DIPESH SOTELO MD [address] [facility],[place] [address], [place], [address], [facility] - [facility] [place] 02/20/2024 15:14:41 Imaging Results None recorded. Procedure Notes None recorded. Medical Equipment None Reported. Allergies Allergen ID Allergen Name Allergen Category Reaction Reaction Severity Criticality Documentation Date Start Date Code Code System Note Provider Name and Address Organization Details Recorded Time 330587 morphine medicatio n other Not available Not available 04/12/2024 7052 RxNorm React ion: Unkno wn; Not Available [facility] 4 00:31:33 Medications Name Sig Start Date Stop Date Status Note LastModified by Organization Details LastModified Time spironolac tone 25 mg tablet active Medicatio n ID: [id number] Br and Name: spironola ctone Sen d Method: E-Prescri bed Subs Allowed: subs OK Medica tionGener icName: spironola ctone Not Available Not Available Not Available omeprazole 20 mg capsule,de layed release active Medicatio n ID: [id number] Br and Name: omeprazol e Send Method: E-Prescri bed Subs Allowed: subs OK Medica tionGener icName: omeprazol e Not Available Not Available Not Available furosemide 20 mg tablet active Medicatio n ID: [id number] Br and Name: furosemid e Send Method: E-Prescri bed Subs Allowed: subs OK Medica tionGener icName: furosemid e Not Available Not Available Not Available fluticason e propionate 50 mcg/actuat ion nasal spray,susp ension [place] 1 spray every day by intranasa l route. 2023 active Not Available Not Available Not Avai lable Vitamin D3 25 mcg (1,000 unit) capsule active Medicatio n ID: [id number] Br and Name: Vitamin D3 Send Method: E-Prescri bed Subs Allowed: subs OK Medica tionGener icName: Vitamin D3 Not Available Not Available Not Available iron active Medicatio n ID: [id number] Br and Name: iron Send Method: E-Prescri bed Subs Allowed: subs [place] Medica tionGener icName: iron Not Available Not Available Not Available Vitals Date Recorded Body height Body mass index (BMI) Body weight Provider Name and Address Organization Details Last Updated DateTime 02/21/2024 180.34 cm 25.1 kg/m2 02321.63 g Jorge Davila [place] - [facility] 02/21/2024 11:35:38 Social History None recorded. Functional Status None recorded. Mental Status None recorded. Family History Nothing Reported. Medical History Condition Response Liver Disease Y Past Encounters Encounter ID Performer Location Encounter Start Date Encounter Closed Date Diagnosis/Indication Diagnosis SNOMED-CT Code Diagnosis ICD10 Code Diagnosis IMO Codes Diagnosis Note [id number] DIPESH QUEEN MD [facility] [address] [address] 02/21/2024 11:33:13 02/21/2024 12:01:49 Chronic hoarseness 2358907502 105 R49.0 Allergic rhinitis 385618 04 J30.9 Health Concerns Section Related Observation LastModified by Organization Detai ls LastModified Time None Recorded Concern Status LastModified by Organization Details LastModified Time None Recorded Advance Directives Directive None Recorded Payers Insurance Date Sequence Insurance Name Policy Number Policy Membreno Covered Member ID Membreno Member ID Guarantor Name 02/29/2024 1 [facility] [place] (MEDICAID HMO) [id number] Brian Birch [id number] Brian Birch Notes Date Note Type Note Provider Name and Address Organization Details Recorded Time 02/21/2024 text/html excision benign lesion right TVF 01/02/2024. Voice much improved. He has been having some postnasal drip with throat clearing due to allergy. He did rest his voice for 2 weeks. DIPESH SOTELO MD [address] [place] [address], [place], [address], [facility] - [facility] 02/21/2024 12:08:37
--- OUTSIDE RECORDS SUMMARY | 2025-07-21 11:55 | XMS_ITS | Encounter Summary ---
Author Organization [facility] Address [address] [place] [address] Phone Care Team Providers Care User Support Specialist Name Role Phone Hayden Britt MD Primary Care Provider Encounter Details Date Type Department Care Team (Late st Contact Info) Description 12/02/2021 Procedure Pass [facility] Inter[facility]iology 30 [place] [address] Social History Tobacco Use Types Packs/Day Years [...] on filedocumented in this encounter Care Teams User Support Specialist Relationship Specialty Start Date End Date Hayden Britt MD [address] [place] [address] [place] [address] PCP - General Internal Medicine 11/04/21 documented as of this encounter Additional Source Comments The information contained in this document represents components of the legal health record. It is not the complete legal health record.[facility]
--- OUTSIDE RECORDS SUMMARY | 2025-07-21 11:55 | XMS_ITS | Encounter Summary ---
Author Organization [facility] Address [address] [place] [address] Phone Care Team Providers Care Building Equipment Inspector Name Role Phone Hayden Britt MD Primary Care Provider Encounter Details Date Type Department Care Team (Latest Contact Info) Description 11/28/2022 Transcribe Orders Virtual Department 30 [place] [address] Brenda Aguiar NP 10 [place] [address] Alcoholic cirrhosis of liver without ascites (Primary [...] Primary documented in this encounter Care Teams Building Equipment Inspector Relationship Specialty Start Date End Date Hayden Britt MD [address] [place] [address] [place] [address] PCP - General Internal Medicine 11/04/21 documented as of this encounter Additional Source Comments The information contained in this document represents components of the legal health record. It is not the complete legal health record.[facility]
--- OUTSIDE RECORDS SUMMARY | 2025-07-21 11:55 | XMS_ITS | Encounter Summary ---
Author Organization [facility] Address [address] [place] [address] Phone Care Team Providers Care Private Chef Name Role Phone Hayden Britt MD Primary Care Provider Encounter Details Date Type Department Care Team (Latest Contact Info) Description 12/12/2024 Transcribe Orders Virtual Department 30 [place] [address] Fabrice Mcduffie MD [address] [place] [phone] [email or web address] Alcoholic cirrhosis, unspecified whether ascites present (Primary [...] clinician's provided indication for this examination in [facility]: Outside Radiology Order; Cirrhosis TECHNIQUE: US Abdominal [...] clinician's provided indication for this examination in [facility]:Outside Radiology Order; Cirrhosis TECHNIQUE: US Abdominal limited [...] present documented in this encounter Care Teams Private Chef Relationship Specialty Start Date End Date Hayden Britt MD [address] [place] [address] [place] [address] PCP - General Internal Medicine 11/04/21 documented as of this encounter Additional Source Comments The information contained in this document represents components of the legal health record. It is not the complete legal health record.[facility]
--- OUTSIDE RECORDS SUMMARY | 2025-07-21 11:55 | XMS_ITS | Encounter Summary ---
Author Organization [facility] Address [address] [place] [address] Phone Care Team Providers Care Firearms Instructor Name Role Phone Hayden Britt MD Primary Care Provider Encounter Details Date Type Department Care Team (Latest Contact Info) Description 12/14/2021 Transcribe Orders [facility] [place] [address] [address] Brenda Aguiar NP 10 [place] [address] Acute liver failure without hepatic coma (Primary [...] EDT) PT 18.5(H) 10.2 - 12.9 sec [facility] INR 1.6(H) 0.9 - 1.1 [facility] Comment:Therapeutic range fo r oral Vitamin K antagonists: 2.0-3.5 Blood 12/14/2021 2:36 PM EDT 12/14/2021 2:40 PM EDT us Brenda Aguiar NP LAB BLOOD BKR ORDERABLES Final Result Performing Organization Address [facility] Co de Phone Number [address] [address] * Magnesium (12/14/2021 2:36 PM EDT) MAGNESIUM 1.6 1.6 - 2.6 mg/dL [facility] Blood 12/14/2021 2:36 PM EDT 12/14/2021 2:40 PM EDT Brenda Aguiar QA CONSULTANT LAB BLOOD BKR ORDERABLES Final Result Performing Organization Address [facility] Co de Phone Number [address] [address] * Folate (12/14/2021 2:36 PM EDT) FOLIC ACID 18.3 4.2 - 19.9 ng/mL [facility] Blood 12/14/2021 2:36 PM EDT 12/14/2021 2:40 PM EDT Brenda Aguiar NP LAB BLOOD BKR ORDERABLES Final Result Performing Organization Address [facility] de Phone Number [address] [address] * 25-OH vitamin D (12/14/2021 2:36 PM EDT) 25 OH VIT D (TOTAL) 39 30 - 60 ng/mL [facility] Blood 12/14/2021 2:36 PM EDT 12/14/2021 2:40 PM EDT Brenda Aguiar QA CONSULTANT LAB BLOOD BKR ORDERABLES Final Result [address] [address] * (ABNORMAL) C-Reactive Protein (12/14/2021 2:36 PM EDT) [facility] C REACTIVE PROTEIN 13.2(H) 0.0 - 4.0 mg/L [facility] Blood 12/14/2021 2:36 PM EDT 12/14/2021 2:40 PM EDT Brenda Aguiar NP LAB BLOOD BKR ORDERABLES Final Result Performing Organization Address [facility]/ZIP Co de Phone Number [address] [address] * (ABNORMAL) Comprehensive metabolic panel (12/14/2021 2:36 PM EDT) [facility] SODIUM 129(L) 133 - 146 mmol/L [facility] POTASSIUM 4.4 3.3 - 5.1 mmol/L [facility] CHLORIDE 95(L) 96 - 108 mmol/L [facility] CO2 25 21 - 35 mmol/L [facility] BUN 7 6 - 19 mg/dL [facility] CREATININE 0.40(L) 0.5 - 1.5 mg/dL [facility] GLUCOSE 88 70 - 99 mg/dL [facility] ALBUMIN 3.3(L) 3.9 - 4.8 g/dL [facility] TOTAL PROTEIN 8.0 6.5 - 8.0 g/dL [facility] CALCIUM 9.4 8.4 - 10.3 mg/dL [facility] ALKALINE PHOSPHATASE 147(H) 39 - 117 U/L [facility] TOTAL BILIRUBIN 3.3(H) 0.0 - 1.2 mg/dL [facility] AST 107(H) 0 - 37 U/L [facility] ALT 51(H) 0 - 40 U/L [facility] GLOBULIN 4.7 1 - 4.8 g/dL [facility] EGFR >120 >59 mL/min/1.7 3m2 [facility] Comment:Estimated glomerular filtration rate calculated using the CKD-EPI refit equation. ANION GAP 13 10 - 20 mmol/L [facility] Blood 12/14/2021 2:36 PM EDT 12/14/2021 2:40 PM EDT us Brenda Aguiar QA CONSULTANT LAB BLOOD BKR ORDERABLES Final Result [address] [address] * (ABNORMAL) CBC and differential (12/14/2021 2:36 PM EDT) WBC 12.15(H) 4.00 - 11.00 K/uL [facility] RBC 3.36(L) 4.23 - 5.82 M/uL [facility] HGB 12.0(L) 13.4 - 17.5 g/dL [facility] HCT 34.8(L) 37.0 - 51.0 % [facility] PLT 202 140 - 430 K/uL [facility] MCV 103.6(H) 78.0 - 97.0 fL [facility] MCH 35.7(H) 25.0 - 33.0 pg [facility] MCHC 34.5 32.0 - 36.0 g/dL [facility] RDW 13.3 11.0 - 15.0 % [facility] MPV 9.4 8.4 - 12.8 fl [facility] NRBC 0.00 0 /100 WBCs [facility] ABSOLUTE NRBC 0.00 0 K/uL [facility] DIFF METHOD Auto [facility] NEUTS 71.1 43.0 - 75.0 % [facility] LYMPHS 14.6(L) 18.2 - 47.4 % [facility] MONOS 11.0 4.00 - 11.00 % [facility] EOS 2.0 0.0 - 8.0 % [facility] BASOS 0.7 0.0 - 2.0 % [facility] Granulocytes, immature (%) 0.6 0.0 - 0.9 % [facility] ABSOLUTE NEUTS 8.64(H) 1.80 - 7.70 K/uL [facility] ABSOLUTE LYMPHS 1.77 1.00 - 3.10 K/uL [facility] ABSOLUTE MONOS 1.34(H) 0.20 - 0.80 K/uL [facility] ABSOLUTE EOS 0.24 0.00 - 0.80 K/uL [facility] ABSOLUTE BASOS 0.09 0.00 - 0.09 K/uL [facility] Granulocytes, immature 0.07(H) 0.00 - 0.05 K/uL [facility] Blood 12/14/2021 2:36 PM EDT 12/14/2021 2:40 PM EDT Brenda Aguiar QA CONSULTANT LAB BLOOD BKR ORDERABLES Final Result [facility] 30 [place] [address] documented in this encounter Visit Diagnoses Diagnosis Acute liver failure without hepatic coma- Primary documented in this encounter Care Teams Firearms Instructor Relationship Specialty Start Date End Date Hayden Britt MD [address] [place] [address] [place] [address] PCP - General Internal Medicine 11/04/21 documented as of this encounter Additional Source Comments The information contained in this document represents components of the legal health record. It is not the complete legal health record.[facility]
--- OUTSIDE RECORDS SUMMARY | 2025-07-21 11:55 | XMS_ITS | Encounter Summary ---
Author Organization [facility] Address [address] [place] [address] Phone Care Team Providers Care Senior Java Web Developer Name Role Phone Hayden Britt MD Primary Care Provider Encounter Details Date Type Department Care Team (Late st Contact Info) Description 03/15/2023 Ancillary Orders Virtual Department 30 [place] [address] Brenda Aguiar NP 10 [place] [address] Alcoholic cirrhosis of liver without ascites Social [...] or bile ductdilation. us Brenda Santoro Fuadjavierjer RADIO DIRECTOR IMG US ABDOMEN Final Res ult documented in this encounter Visit Diagnoses Diagnosis Alcoholic cirrhosis of liver without ascites Alcoholic cirrhosis of liver without ascites documented in this encounter Care Teams Senior Java Web Developer Relationship Specialty Start Date End Date Hayden Britt MD [address] [place] [address] [place] [address] PCP - General Internal Medicine 11/04/21 documented as of this encounter Additional Source Comments The information contained in this document represents components of the legal health record. It is not the complete legal health record.[facility]
--- OUTSIDE RECORDS SUMMARY | 2025-07-21 11:55 | XMS_ITS | Encounter Summary ---
Author Organization [facility] Address [address] [place] [address] Phone Care Team Providers Care Reactor Fueling Supervisor Name Role Phone Hayden Britt MD Primary Care Provider Encounter Details Date Type Department Care Team (Late st Contact Info) Description 07/26/2024 Procedure Pass [facility] Endoscopy Admitting Dept Virtual Department 30 [place] [address] Social History Tobacco Use Types Packs/Day Years [...] on filedocumented in this encounter Care Teams Reactor Fueling Supervisor Relationship Specialty Start Date End Date Hayden Britt MD [address] [place] [address] [place] [address] PCP - General Internal Medicine 11/04/21 documented as of this encounter Additional Source Comments The information contained in this document represents components of the legal health record. It is not the complete legal health record.[facility]
--- OUTSIDE RECORDS SUMMARY | 2025-07-21 11:55 | XMS_ITS | Encounter Summary ---
Author Organization [facility] Address [address] [place] [address] Phone Care Team Providers Care Electronic Data Interchange Specialist Name Role Phone Hayden Britt MD Primary Care Provider Encounter Details Date Type Department Care Team (Late st Contact Info) Description 11/26/2021 Procedure Pass [facility]ovascular [facility] Interventional [facility]iology 30 [place] [address] Social History Tobacco Use Types Packs/Day Years [...] documented as of this encounter Care Teams Electronic Data Interchange Specialist Relationship Specialty Start Date End Date Hayden Britt MD [address] [place] [address] [place] [address] PCP - General Internal Medicine 11/04/21 documented as of this encounter Additional Source Comments The information contained in this document represents components of the legal health record. It is not the complete legal health record.[facility]
--- OUTSIDE RECORDS SUMMARY | 2025-07-21 11:56 | XMS_ITS | Encounter Summary ---
Author Organization [facility] Address [address] [place] [phone] Phone Care Team Providers Care Pot Fluxer Name Role Phone Hayden Britt MD Primary Care Provider Encounter Details Date Type Department Care Team (Latest Contact Info) Description 03/25/2024 Transcribe Orders Virtual Department [address] [place] [address] Fabrice Mcduffie MD [address] [place] [phone] [email or web address] Alcoholic cirrhosis, unspecified whether ascites present (Primary [...] present documented in this encounter Care Teams Pot Fluxer Relationship Specialty Start Date End Date Hayden Britt MD [address] [place] [address] [place] [address] PCP - General Internal Medicine 11/04/21 documented as of this encounter Additional Source Comments The information contained in this document represents components of the legal health record. It is not the complete legal health record.[facility]
--- OUTSIDE RECORDS SUMMARY | 2025-07-21 11:56 | XMS_ITS | Encounter Summary ---
Author Organization [facility] Address [address] [place] [phone] Phone Care Team Providers Care Chicken Fancier Name Role Phone Hayden Britt MD Primary Care Provider Encounter Details Date Type Department Care Team (Latest Contact Info) Description 06/27/2025 Orders Only [facility] [address] [place] [address] Fabrice Mcduffie MD [address] [phone] [email or web address] Alcoholic cirrhosis of liver with ascites (Primary [...] Primary documented in this encounter Care Teams Chicken Fancier Relationship Specialty Start Date End Date Hayden Britt MD [address] [place] [address] [place] [address] PCP - General Internal Medicine 11/04/21 documented as of this encounter Additional Source Comments The information contained in this document represents components of the legal health record. It is not the complete legal health record.[facility]
--- OUTSIDE RECORDS SUMMARY | 2025-07-21 11:56 | XMS_ITS | Encounter Summary ---
Author Organization [facility] Address [address] [place] [phone] Phone Care Team Providers Care Soa Architect Name Role Phone Hayden Britt MD Primary Care Provider Encounter Details Date Type Department Care Team (Latest Contact Info) Description 11/21/2023 Transcribe Orders Virtual Department [address] [place] [address] Fabrice Mcduffie MD [address] [place] [phone] [email or web address] Alcoholic cirrhosis of liver without ascites [...] ascites documented in this encounter Care Teams Soa Architect Relationship Specialty Start Date End Date Hayden Britt MD [address] [place] [address] [place] [address] PCP - General Internal Medicine 11/04/21 documented as of this encounter Additional Source Comments The information contained in this document represents components of the legal health record. It is not the complete legal health record.[facility]
--- OUTSIDE RECORDS SUMMARY | 2025-07-21 11:57 | XMS_ITS | Encounter Summary ---
Author Organization [facility] Address [address] [place] [phone] Phone Care Team Providers Care Meteorological Technician Name Role Phone Hayden Britt MD Primary Care Provider Encounter Details Date Type Department Care Team (Late st Contact Info) Description 10/31/2023 Procedure Pass [facility], Ct Scan - [facility] [address] [place] [address] Social History Tobacco Use Types Packs/Day Years [...] on filedocumented in this encounter Care Teams Meteorological Technician Relationship Specialty Start Date End Date Hayden Britt MD [address] [place] [address] Dr Goncalves, [place] [address] PCP - General Internal Medicine 11/04/21 documented as of this encounter Additional Source Comments The information contained in this document represents components of the legal health record. It is not the complete legal health record.[facility]
== END 2025-07-21 10:41 | disposition home or self-care (01) ==
LOC: HO.HGS 10:11
PROVIDERS: PCP Internal Medicine; Visit Provider Physician Assistant Surgical
DX: R22.2 Localized swelling, mass and lump, trunk (principal)
CPT/HCPCS: 99024

== ENCOUNTER → 2025-07-21 10:10 | Outpatient (BNVA) | payer OTHER, SELFPAY | PROVIDERS: PCP Internal Medicine; Visit Provider Physician Assistant Surgical | DX: R22.2 Localized swelling, mass and lump, trunk (principal) | CPT/HCPCS: 99212 ==

== ENCOUNTER 2025-08-21 07:32 | Outpatient (REF) | payer OTHER, SELFPAY ==
--- NOTE | ~2025-08-21 | CT_ITS ---
EXAMINATION: CT ABDOMEN PELVIS WITH IV CONTRAST HISTORY: R22.2 - Localized swelling, mass and lump, trunk COMPARISON: There are no prior studies for available comparison. TECHNIQUE: CT scan of the abdomen and pelvis was performed following administration of 85 mL Omnipaque 350 using standard departmental protocol. Coronal and sagittal reformatted images were generated and reviewed. Oral contrast material was not administered at the request of the referring physician. This CT exam was performed with one or more of the following dose reduction techniques: automated exposure control, adjustment of the mA and/or kV according to patient size, use of iterative reconstruction technique. DLP: 474 mGy-cm FINDINGS: LOWER CHEST: The visualized lung bases are clear. There is no pleural effusion. CARDIOVASCULATURE: The heart is normal in size. There is no pericardial effusion. LIVER: The liver is shrunken and demonstrates a nodular contour, consistent with cirrhosis. No liver mass is identified. The hepatic and portal veins are patent. There is a recannulized paraumbilical vein. Numerous collateral vessels are seen in the anterior abdominal wall. GALLBLADDER / BILE DUCTS: There is cholelithiasis. There is no intra or extrahepatic biliary ductal dilatation. SPLEEN: The spleen is enlarged. No focal splenic lesion is identified. PANCREAS: The pancreas is unremarkable in appearance. ADRENAL GLANDS: Within normal limits. KIDNEYS/RETROPERITONEUM: No renal calculi are identified. There is no hydronephrosis. No renal masses are identified. LYMPH NODES: No abdominal or pelvic lymphadenopathy. VASCULATURE: The abdominal aorta is normal in caliber. MESENTERY/PERITONEUM: No free fluid. No masses. There is no free intraperitoneal gas. STOMACH: The stomach is unremarkable. SMALL BOWEL: The small bowel is normal in caliber. COLON: The colon is unremarkable. APPENDIX: Normal. URINARY BLADDER/PELVIC ORGANS: The urinary bladder is collapsed, limiting evaluation. The prostate is mildly enlarged. BONES / SOFT TISSUES: No suspicious bony or soft tissue abnormalities. CT/CT abdomen pelvis w IV con IMPRESSION: 1. Cirrhosis of the liver with splenomegaly and numerous vascular collaterals in the anterior abdominal wall. 2. Cholelithiasis. Electronically signed by: Brad Hood MD 08/21/2025 08:36 AM EST
[2025-08-21] MEDS: iohexoL 350 MG/ML 100 ML INFUS..BTL 85 ML IV (08:30)
== END 2025-08-21 07:33 | disposition home or self-care (01) ==
LOC: HO.CT 07:32
PROVIDERS: PCP Internal Medicine; Visit Provider Surgery
DX: R22.2 Localized swelling, mass and lump, trunk (principal)
CPT/HCPCS: 74177; Q9967

== ENCOUNTER → 2025-08-21 07:34 | Outpatient (BNV) | payer OTHER, SELFPAY | PROVIDERS: PCP Internal Medicine; Visit Provider Radiology Diagnostic Radiology | DX: K74.60 Unspecified cirrhosis of liver (principal); K80.20 Calculus of gallbladder without cholecystitis without obstruction; R16.1 Splenomegaly, not elsewhere classified | CPT/HCPCS: 74177 ==

== ENCOUNTER 2025-08-28 09:44 | Outpatient (AMB) | payer OTHER, SELFPAY ==
--- NOTE | 2025-08-28 09:45 | MHC.OFFVIS ---
Vital Signs 08/28/25 09:50 Height 5 ft 11 in Weight 211 lb BMI 29.4 Intake Visit Reasons: ct scan results Intake Note: Patient presents to discuss Ct-scan results. Pt c/o; no complaints. 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 I had scheduled him for a CAT scan in view of intraop findings last June,. He was scheduled for repair of umbilical hernia at that time for a mass on the umbilicus. However, exploration, there is were noted to be large engorged veins without any fascial defect. He does state that he has a known diagnosis of liver cirrhosis. He says that he used to be a heavy drinker but quit about 4 years ago. He is following a liver specialist in [place]. [facility] Medical History Abdominal wall mass GERD without esophagitis History of MRSA infection Esophageal varices Febrile seizures Sleep apnea Asthma Seasonal allergies Epigastric hernia Vocal cord polyp Liver cirrhosis Surgical History S/P epigastric hernia repair, follow-up exam (07/08/25) H/O colonoscopy History of esophagogastroduodenoscopy (EGD) Hx of tooth extraction History of ankle surgery Family History Mother Cancer Father No problems noted. Social History Housing: House Are you a primary insurance healthcare consultant to a significant other at home: No Do you presently have visiting nurse or other home services: No Alcohol intake: former Patient Tobacco Use Status: Current everyday Tobacco user Tobacco use type: Cigarette Cigarette Packs Per Day: 0.25 Cigarettes Per Day: 3 e-Cigarette/Vaping Use: Currently Using Second Hand Smoke Exposure: Yes Substance Use Type: Marijuana service: No Current occupational status: unemployed Cognitive needs: No Hearing needs: No Vision needs: Yes (rx glasses) Review of Systems Const Denies chills and Denies fever(s) Card Denies chest pain at rest Resp Denies cough GI Denies abdominal pain Physical Exam Vital Signs: BMI result Body Mass Index 29.4 Const General: comfortable and no acute distress Resp Effort & Inspection: normal respiratory effort GI Other: Umbilical incision is well healed Palpation (GI): Soft to palpation and not firm Assessment & Plan Assessment & Plan (1) Abdominal wall mass: Code(s): R22.2 - Localized swelling, mass and lump, trunk Category: Medical Plan: The CAT scan does confirm that the mass in the abdominal wall at the umbilicus represent very engorged veins because of his liver cirrhosis. Again, there was no fascial defect that was seen. I told him that he does not require any surgical intervention for this abdominal wall mass I reiterated to him the importance of following up with his liver specialist because of his cirrhosis. 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 basis Coding Level of Care Code Est Pt Level 3 (13152) Diagnoses Abdominal wall mass R22.2
[2025-08-28 09:50] VITALS: BMI 29.4
== END 2025-08-28 09:57 | disposition home or self-care (01) ==
LOC: HO.HGS 09:45
PROVIDERS: PCP Internal Medicine; Visit Provider Surgery
DX: R22.2 Localized swelling, mass and lump, trunk (principal)
CPT/HCPCS: 99213

== ENCOUNTER → 2025-08-28 09:44 | Outpatient (BNVA) | payer OTHER, SELFPAY | PROVIDERS: PCP Internal Medicine; Visit Provider Surgery | DX: R22.2 Localized swelling, mass and lump, trunk (principal) | CPT/HCPCS: 99212 ==